=== PATIENT | female | born 1940 | race Caucasian/White ===

== ENCOUNTER → 2016-11-26 | Outpatient (CLI) | payer MEDICARE, OTHER ==
[~2016-11-26] MED LIST: ASP81TEC PO; ATR20T PO; CEFU500T5 PO; CPR500T PO; FLUT1DIS26 IH; LEVO500T69 PO; LISI1TAB PO; METO50TA7 PO; METR500T PO; MNTL10T PO; MTP25TSR PO; OMEG-12 PO; OMEP-10 PO; PHEN200T27 PO; POTA99TA7 PO; TIOT18CA IH; VITA1TAB16 PO
--- NOTE | 2016-11-27 10:13 | ECHOCARDIOGRAPHY REPORT ---
PROCEDURE PHYSICIAN: JASPAL ROACH DATE OF PROCEDURE: 11/26/2016 TWO DIMENSIONAL ECHOCARDIOGRAM REPORT PRIMARY PHYSICIAN: OTHER PHYSICIAN: REFERRING PHYSICIAN: Dr. Hinojosa ORDERING PHYSICIAN: INDICATION FOR THE PROCEDURE: Cardiac murmur. MEASUREMENTS DERIVED VALUES LV DIAMETER (LAX) NORMALS NORMALS Diastolic 4.4 (3.6-5.2) Eject. Fract. 60% (60%+/-6%) Systolic (2.3-3.9) Diastolic Vol. % Shortening (0.22-0.42) Systolic Vol. Aortic Root IVS THICKNESS Diastolic 0.8 (0.6-1.1) LVPW THICKNESS Diastolic 1. (0.6-1.1) LA DIAMETER Systolic 2.9 (2.1-3.7) FINDINGS: 1. Technical quality is good. 2. The left ventricle is normal in size with normal contractility. Systolic function appeared to be normal. Estimated ejection fraction 60%. 3. The left atrium is normal in size. No clot or thrombus were seen within the left atrium. 4. The right atrium and right ventricle are normal in size. No clot or thrombus were seen within the right side. 5. Aortic valve is calcified, still has some leaflet separation. Doppler across the aortic valve calculated the peak gradient of 29 mmHg, mean gradient of 16 mmHg, calculated valve area of 1.4 sq cm, which is mild to moderate aortic valve stenosis. Some deterioration compared to the study of 2012. 6. Tricuspid valve is normal in morphology with mild tricuspid regurgitation noted by color Doppler flow. Doppler across tricuspid valve estimated pulmonary artery pressure of 22+ right atrial pressure. 7. Pulmonic valve is functioning normally. 8. No pericardial effusion. Doppler across left ventricular inflow tract showed equalization of E:A, which is suggestive diastolic dysfunction. CONCLUSION: 1. Normal left ventricular size and systolic function. Estimated ejection fraction 60%. Diastolic dysfunction is suggested by Doppler. 2. Mild to moderate aortic valve stenosis. Some deterioration compared to the study of 2012. 3. Mild mitral and tricuspid regurgitation. 4. Estimated pulmonary artery pressure of 30 mmHg. Job ID: [id number] Dictated Date: 11/26/2016 16:51:08 Care Director Rn Date: 11/27/2016 10:07:59 / [place]
== END ==
LOC: CARD 11:42
PROVIDERS: ATTEND Family Medicine
DX: R01.1 Cardiac murmur, unspecified (principal)
CPT/HCPCS: 93306

== ENCOUNTER 2018-01-12 10:31 | Inpatient (IN) | payer MEDICARE, OTHER ==
[~2018-01-12] VITALS: Ht 157.5 cm; Wt 68.0 kg
[2018-01-12] MEDS ORDERED: ONDANSETRON 4 MG/2 ML (SDV) Z0FRAN IV PRN (10:45)
[2018-01-12] MEDS ORDERED: PATIENT MAY USE OWN MEDS, ALL PO SCH (10:45)
[2018-01-12] MEDS ORDERED: PANTOPRAZOLE 40 MG/10 ML (PROTONIX) VIAL IV NR (10:45)
--- OUTSIDE RECORDS SUMMARY | 2018-01-12 11:09 | XMS REPORT | Continuity of Care Document ---
Author Author [facility] Organization [facility] Address Unknown Phone Unavailable Allergies Active Description Code Type Severity Reaction Onset Reported/Identified Relationship to Patient Clinical Status Yes Penicillins [id number] Drug Allergy Severe ANAPHYLAXIS 06/21/2011 Medications There is no data. Problems Date Dx Coded Attending Type Code Diagnosis Diagnosed By 09/13/2010 Ot 724.4 06/23/2011 Ot 305.1 TOBACCO USE DISORDER 06/23/2011 Ot 401.9 HYPERTENSION NOS 06/23/2011 Ot 496 CHR AIRWAY OBSTRUCT NEC 06/23/2011 Ot 530.81 ESOPHAGEAL REFLUX 06/23/2011 Ot 562.13 DIVERTICULITIS OF COLON WITH HEMORRHAGE 06/23/2011 Ot 599.0 URIN TRACT INFECTION NOS 06/15/2015 Ot 397.0 06/15/2015 Ot 424.0 06/15/2015 Ot 433.10 06/15/2015 Ot 785.2 06/15/2015 Ot V76.12 06/15/2015 Ot 397.0 06/15/2015 Ot 401.9 06/15/2015 Ot 414.01 06/15/2015 Ot 424.0 06/15/2015 ANDREWNDER DOSALMARIGOBERTO S Ot 256.39 06/15/2015 ANDREWNDUZMA DOFAIZARIGOBERTO S Ot 733.90 06/15/2015 ANDREWNDSALMA GUSMAN DOLINE S Ot 781.91 06/15/2015 ANDREWNDUZMA DOFAIZARIGOBERTO S Ot V76.12 07/09/2015 ANDREWNDUZMA DOFAIZARIGOBERTO S Ot 433.10 07/09/2015 ANDREWNDSALMA GUSMAN DOLINE S Ot 433.30 07/26/2015 ANDREWNDFAIZA GUSMAN DOQUELINE S Ot 433.10 07/26/2015 ANDREWNDFAIZA GUSMAN DOQUELINE S Ot 433.30 11/24/2016 Ot 397.0 TRICUSPID VALVE DISEASE 11/24/2016 Ot 401.9 HYPERTENSION NOS 11/24/2016 Ot 414.01 CORONARY ATHEROSCLEROSIS OF [place] CORON 11/24/2016 Ot 424.0 MITRAL VALVE DISORDER 11/24/2016 SALMA ROSAS DOLINE S Ot 256.39 OTHER OVARIAN FAILURE 11/24/2016 RALPH DELCID RIGOBERTO S Ot 733.90 BONE CARTILAGE DIS NOS 11/24/2016 SALMA ROSAS DOLINE S Ot 781.91 LOSS OF HEIGHT 11/24/2016 RALPH DELCID RIGOBERTO S Ot V76.12 OTH SCREEN MAMMO-MALIGN NEOPLASM OF PERRY 11/24/2016 RALPH DELCID RIGOBERTO S Ot 433.10 CAROTID ARTERY OCCLUSION W O CEREBRAL IN 11/24/2016 RALPH DELCID RIGOBERTO S Ot 433.30 MULT BILTRAL ARTERY OCCLUSION WO CEREBRA 11/27/2016 RALPH DELCID RIGOBERTO S Ot R01.1 CARDIAC MURMUR, UNSPECIFIED 11/27/2016 ANDREWCHARITO FAIZA DELCIDRIGOBERTO S Ot R01.1 CARDIAC MURMUR, UNSPECIFIED 12/02/2016 HARJITUZMA FAIZA DELCIDRIGOBERTO S Ot R01.1 CARDIAC MURMUR, UNSPECIFIED 12/18/2016 ANDREWYOANUZMA DELCID RIGOBERTO S Ot R01.1 CARDIAC MURMUR, UNSPECIFIED 01/06/2017 RALPH DO RIGOBERTO S Ot R01.1 CARDIAC MURMUR, UNSPECIFIED Procedures There is no data. Results There is no data. Encounters ACCT No. Visit Date/Time Discharge Status Pt. Type Provider Facility Loc./Unit Complaint [id number] 10/08/2017 15:06:00 10/08/2017 23:59:59 CLS Preadmit RALPH DELCID RIGOBERTO S [facility] RAD LUNG CANCER SCREENING [id number] 11/26/2016 11:42:00 11/26/2016 23:59:59 CLS Outpatient ANDREWNDUZMA DO RIGOBERTO S [facility] CARD CARDIAC MURMUR [id number] 06/15/2015 09:05:00 06/15/2015 23:59:59 CLS Outpatient ANDREWNDUZMA DO RIGOBERTO S [facility] RAD CAROTID ARTERY STENOSIS [id number] 05/11/2014 08:53:00 05/11/2014 23:59:59 CLS Outpatient ANDREWNDUZMA DO RIGOBERTO S [facility] RAD SCREENING, OSTEOPENIA [id number] 03/02/2013 09:35:00 Document Registration [id number] 06/19/2011 11:35:00 Document Registration [id number] 09/13/2010 07:58:00 Document Registration [id number] 07/08/2010 10:43:00 Document Registration [id number] 03/22/2010 09:40:00 Document Registration
[2018-01-12] MEDS ORDERED: ATOR40TA70 PO (11:13)
[2018-01-12] MEDS ORDERED: ESCI5TAB12 PO (11:13)
[2018-01-12] MEDS ORDERED: AMLO10TA2 PO (11:13)
[2018-01-12] MEDS ORDERED: METO-370 PO (11:13)
[2018-01-12] MEDS ORDERED: ALBU18HF2 INH (11:13)
[2018-01-12] MEDS ORDERED: VITA1TAB17 PO (11:14)
[2018-01-12] MEDS ORDERED: OMEG-160 PO (11:14)
[2018-01-12] MEDS ORDERED: POTA99TA21 PO (11:14)
[2018-01-12] MEDS ORDERED: ASPI-983 PO ×2 (11:14→12:56)
[2018-01-12 12:00] VITALS: BP 121/79
[2018-01-12] MEDS: NS IV 1000 ML 1,000 ML IV SCH ×2 (12:07→21:09)
[2018-01-12] MEDS ORDERED: IPRA0.2S51 NEB (12:56)
[2018-01-12] MEDS ORDERED: OMEP20TA7 PO (12:56)
[2018-01-12 13:01] LABS: BASOPHILS % (AUTO) 0 % (0-10); EOSINOPHILS # (AUTO) 0.3 10^3/uL (0.0-0.3); EOSINOPHILS % (AUTO) 3 % (0-10); HEMATOCRIT 36 % (35-52); HEMOGLOBIN 12.3 G/DL (11.5-16.0); LYMPHOCYTES % (AUTO) 12 % (12-44); MEAN CORPUSCULAR HEMOGLOBIN 30 PG (25-34); MEAN CORPUSCULAR HGB CONC 34 G/DL (32-36); MEAN CORPUSCULAR VOLUME 88 FL (80-99); MEAN PLATELET VOLUME 10.7 FL (7.4-10.4); MONOCYTES # (AUTO) 0.8 X 10^3 (0.0-1.0); MONOCYTES % (AUTO) 9 % (0-12); NEUTROPHILS # (AUTO) 6.2 X 10^3 (1.8-7.8); NEUTROPHILS % (AUTO) 76 % (42-75); PLATELET COUNT 340 10^3/uL (130-400); RED BLOOD COUNT 4.15 10^6/uL (4.35-5.85); RED CELL DISTRIBUTION WIDTH 13.9 % (10.0-14.5); WHITE BLOOD COUNT 8.2 10^3/uL (4.3-11.0)
[2018-01-12 13:25] LABS: ALANINE AMINOTRANSFERASE 7 U/L (0-55); ALBUMIN 3.8 GM/DL (3.2-4.5); ALKALINE PHOSPHATASE 81 U/L (40-136); AMYLASE 25 U/L (25-125); BILIRUBIN,TOTAL 0.6 MG/DL (0.1-1.0); BUN/CREATININE RATIO 18; CARBON DIOXIDE 25 MMOL/L (21-32); CHLORIDE 105 MMOL/L (98-107); CREATININE SERUM 0.74 MG/DL (0.60-1.30); GFR ESTIMATED > 60; GLUCOSE 117 MG/DL (70-105); LIPASE 14 U/L (8-78); POTASSIUM 3.9 MMOL/L (3.6-5.0); SODIUM 140 MMOL/L (135-145); TOTAL PROTEIN 6.5 GM/DL (6.4-8.2)
--- NOTE | 2018-01-12 14:31 | Diagnostic Imaging Report ---
PROCEDURE: CT head without contrast. TECHNIQUE: Multiple contiguous axial images were obtained through the brain without the use of intravenous contrast. INDICATION: Confusion. Memory loss. COMPARISON: CT head without contrast 10/26/2011. FINDINGS: Rjlt-go-xrvycsms generalized cerebral and cerebellar parenchymal volume loss, similar to the prior exam. Mild interval progression of low attenuation changes in the deep white matter, presumed leukoaraiosis. No CT evidence of a territorial infarction. Intracranial vascular calcifications. No intracranial hemorrhage, mass effect, hydrocephalus or extra-axial fluid collection. Osseous structures are intact. The visualized paranasal sinuses and mastoids are clear. IMPRESSION: 1. No acute intracranial CT findings. 2. Tfne-iu-zrzhustr generalized parenchymal volume loss is stable. 3. 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 Dictated by: Dictated on workstation # [id number]
--- NOTE | 2018-01-12 15:21 | Diagnostic Imaging Report ---
INDICATION: Confusion and memory loss. TIME OF EXAM: 02:42 p.m. Correlation is made with prior study from 12/17/2011. FINDINGS: The heart size is normal. Bilateral breast implants overlie the lung bases. The lungs appear to be clear of acute infiltrates. There is no effusion. No pneumothorax is seen. IMPRESSION: No acute cardiopulmonary process is detected. Dictated by: Dictated on workstation # [id number]
[2018-01-12 15:59] LABS: BILIRUBIN,URINE NEGATIVE (NEGATIVE); CLARITY,URINE CLEAR; COLOR,URINE YELLOW; GLUCOSE, URINE (UA) NEGATIVE (NEGATIVE); KETONES,URINE NEGATIVE (NEGATIVE); LEUKOCYTE ESTERASE ,URINE 3+ (NEGATIVE); NITRITE,URINE NEGATIVE (NEGATIVE); PH,URINE 6 (5-9); PROTEIN,URINE NEGATIVE (NEGATIVE); UROBILINOGEN,URINE 4 MG/DL (NORMAL)
[2018-01-12 16:00] VITALS: BP 152/70
[2018-01-12 16:09] LABS: BACTERIA,URINE MODERATE /HPF; SQUAMOUS EPITHELIAL CELL,UR >50 /HPF; WBC,URINE 50-100 /HPF
--- NOTE | 2018-01-12 17:51 | History & Physicial ---
History of Present Illness History of Present Illness Reason for visit/HPI This is a 77 year old female with a known history of COPD with ongoing tobacco abuse as well as recent worsening memory. She had the onset of nausea and vomiting at the end of last week and had ongoing nausea and vomiting through the weekend with at least one episode of coffee ground emesis and with very little oral intake. She also started experiencing substernal chest pain. She was brought to my office by her sister with weakness and was noted to have had an 8 pound weight loss. It was decided to directly admit her for intractable nausea and vomiting with upper GI hemorrhage, chest pain, weakness and confusion. Date of Admission Jan 12, 2018 at 11:05 am Date Seen by Provider: Jan 12, 2018 Time Seen by Provider: 11:45 I consulted on this patient on 01/12/18 17:46 Attending Physician Neelam Hinojosa DO Admitting Physician Neelam Hinojosa DO Consult Allergies and Home Medications Allergies Coded Allergies: Penicillins (Unverified Allergy, Severe, ANAPHYLAXIS, 06/21/11) Home Medications Albuterol Sulfate 18 Gm Hfa.aer.ad, 2 PUFF INH Q4H PRN for SHORTNESS OF BREATH, (Reported) Amlodipine Besylate 10 Mg Tablet, 10 MG PO DAILY, (Reported) Aspirin 81 Mg Tablet.dr, 81 MG PO DAILY, (Reported) Atorvastatin Calcium 40 Mg Tablet, 40 MG PO DAILY, (Reported) Escitalopram Oxalate 5 Mg Tablet, 5 MG PO DAILY, (Reported) Ipratropium [place] 0.2 Mg/1 Ml Solution, 0.5 MG NEB QID, (Reported) Metoprolol Succinate 50 Mg Tab.er.24h, 50 MG PO DAILY, (Reported) [place]-3/Dha/Epa/Fish Oil 1 Each Capsule, 1,000 MG PO BID, (Reported) Omeprazole 20 Mg Tablet.dr, 20 MG PO DAILY, (Reported) Potassium Gluconate 99 Mg Tablet, 99 MG PO DAILY, (Reported) Vitamin B Complex 1 Each Tablet, 1 TAB PO DAILY, (Reported) Patient Home Medication List Home Medication List Reviewed: Yes Past Liwyszj-Hpdpqd-Ybctps Hx Patient Social History Alcohol Use: Rarely Uses Number of Drinks Today: 0 Alcohol Beverage of Choice: Wine Recreational Drug Use: No Smoking Status: Current Everyday Smoker Type Used: Cigarettes Physical Abuse Screen: No Sexual Abuse: No Recent Foreign Travel: No Contact w/other who traveled: No Recent Hopitalizations: Yes (ASTHMA ATTACK-2005) Recent Infectious Disease Expo: No Immunizations Up To Date Date of Pneumonia Vaccine: Sep 09, 2010 Date of Influenza Vaccine: Aug 09, 2017 Seasonal Allergies Seasonal Allergies: No Surgeries Yes Respiratory Yes (COPD) Currently Using CPAP: No Currently Using BIPAP: No Cardiovascular Yes Neurological No Reproductive System Hx Reproductive Disorders: Yes Genitourinary Yes Kidney Stones Gastrointestinal No Musculoskeletal No Endocrine History of Endocrine Disorders: No HEENT History of HEENT Disorders: Yes Hearing Impairment: Hard of Hearing Cancer No Psychosocial History of Psychiatric Problem: No Integumentary History of Skin or Integumenta: No Blood Transfusions History of Blood Disorders: No Constitutional: weakness, weight loss EENTM: No see HPI, No no symptoms reported, No ear discharge, No hearing loss, No ear pain, No blurred vision, No double vision, No eye pain, No tearing, No vision loss, No dental problems, No hoarseness, No mouth pain, No mouth swelling , No epistaxis, No nose congestion, No nose pain, No throat pain, No throat swelling, No other Respiratory: cough, dyspnea on exertion, short of breath, wheezing Cardiovascular: chest pain Gastrointestinal: abdominal pain, hematemesis, loss of appetite, nausea, vomiting Genitourinary: decreased output Musculoskeletal: back pain, muscle weakness Skin: No no symptoms reported, No see HPI, No change in color, No change in hair/nails, No dryness, No hx of skin cancer, No lesions, No lumps, No pruritus , No rash, No other Psychiatric/Neurological: Weakness, Other (memory loss) Physical Exam Vital Signs Vital Signs - First Documented 01/12/18 12:00 Temp 97.8 Pulse 80 Resp 18 B/P (MAP) 121/79 (93) Pulse Ox 97 O2 Delivery Room Air Capillary Refill : General Appearance: Mild Distress HEENT: Other (mucous membranes dry) Neck: Supple Respiratory: Decreased Breath Sounds, Rales, Rhonci Cardiovascular: Regular Rate, Rhythm, Systolic Murmur, Gallop/S4 Gastrointestinal: Normal Bowel Sounds, Soft, Tenderness Rectal: Deferred Back: No CVA Tenderness Extremity: Non Tender, No Calf Tenderness, No Pedal Edema Neurologic/Psychiatric: Alert, Oriented x3, Motor Weakness (generalized) Skin: Warm/Dry Comments Laboratory Tests 01/12/18 12:50: White Blood Count 8.2, Red Blood Count 4.15L, Hemoglobin 12.3, Hematocrit 36, Mean Corpuscular Volume 88, Mean Corpuscular Hemoglobin 30, Mean Corpuscular Hemoglobin Concent 34, Red Cell Distribution Width 13.9, Platelet Count 340, Mean Platelet Volume 10.7H, Neutrophils (%) (Auto) 76H, Lymphocytes (%) (Auto) 12, Monocytes (%) (Auto) 9, Eosinophils (%) (Auto) 3, Basophils (%) (Auto) 0, Neutrophils # (Auto) 6.2, Lymphocytes # (Auto) 1.0, Monocytes # (Auto) 0.8, Eosinophils # (Auto) 0.3, Basophils # (Auto) 0.0, Sodium Level 140, Potassium Level 3.9, Chloride Level 105, Carbon Dioxide Level 25, Anion Gap 10, Blood Urea Nitrogen 13, Creatinine 0.74, Estimat Glomerular Filtration Rate > 60, BUN/ Creatinine Ratio 18, Glucose Level 117H, Calcium Level 10.0, Total Bilirubin 0.6 , Aspartate Amino Transf (AST/SGOT) 13, Alanine Aminotransferase (ALT/SGPT) 7, Alkaline Phosphatase 81, Troponin I < 0.30, Total Protein 6.5, Albumin 3.8, Amylase Level 25, Lipase 14, Thyroid Stimulating Hormone (TSH) 1.19 01/12/18 15:50: Urine Color YELLOW, Urine Clarity CLEAR, Urine pH 6, Urine Specific [place] 1.020, Urine Protein NEGATIVE, Urine Glucose (UA) NEGATIVE, Urine Ketones NEGATIVE, Urine Nitrite NEGATIVE, Urine Bilirubin NEGATIVE, Urine Urobilinogen 4H, Urine Leukocyte Esterase 3+H, Urine RBC (Auto) NEGATIVE, Urine RBC NONE, Urine WBC 50-100H, Urine Squamous Epithelial Cells >50H, Urine Crystals NONE, Urine Bacteria MODERATEH, Urine Casts NONE, Urine Mucus NEGATIVE, Urine Culture Indicated YES Assessment/Plan Assessment and Plan 1. Intractable Nausea and Vomiting with Hematemesis indicating Upper GI Hemorrhage and Abnormal Weight Loss--Admit for IVF, IV protonix, Monitor H/H, Possible EGD, check pancreatic Enzymes 2. Memory Loss/Confusion--Check CT scan of head 3. UTI--start Rocephin 4. COPD with ongoing Tobacco Abuse--Start SVNs with duoneb, monitor oxygen saturation 5. Weakness--multifactorial, check lab and see if improves with hydration, treatment of UTI, pulmonary toilet 6. Chest Pain--check EKG, CXR, cardiac enzymes Problems: Admission Diagnosis Admission Status: Inpatient Order (span 2 midnights) Reason for Inpatient Admission: Patient having intractable N/V with hematemesis as well as chest pain so will need to monitor H/H and cover with IV protonix, rule out cardiac and possibly have endoscopies Clinical Quality Measures DVT/VTE Risk/Contraindication: Risk Factor Score Per Nursin RFS Level Per Nursing on Admit: 3=High NEELAM HINOJOSA DO Jan 12, 2018 5:51 pm
[2018-01-12] MEDS ORDERED: ACETAMINOPHEN 325 MG TABLET/CAPLET (TYLENOL) PO PRN (18:15)
[2018-01-12 20:00] VITALS: BP 151/72
[2018-01-12] MEDS: cefTRIAXone INJECTION 1,000 MG in NS (IVPB) 100 ML IV SCH (20:11)
[2018-01-12] MEDS: PANTOPRAZOLE 40 MG/10 ML (PROTONIX) VIAL IV SCH (21:09)
[2018-01-13] VITALS: BP 124/59
[2018-01-13] MEDS: RT-ALBUTEROL/IPRATROPIUM 3 ML (DUONEB) VIAL INH SCH ×8 (03:40→22:10)
[2018-01-13 04:00] VITALS: BP 150/72
[2018-01-13 05:59] LABS: BASOPHILS % (AUTO) 0 % (0-10); EOSINOPHILS # (AUTO) 0.3 10^3/uL (0.0-0.3); EOSINOPHILS % (AUTO) 5 % (0-10); HEMATOCRIT 34 % (35-52); HEMOGLOBIN 11.3 G/DL (11.5-16.0); LYMPHOCYTES # (AUTO) 1.3 X 10^3 (1.0-4.0); LYMPHOCYTES % (AUTO) 21 % (12-44); MEAN CORPUSCULAR HEMOGLOBIN 29 PG (25-34); MEAN CORPUSCULAR HGB CONC 33 G/DL (32-36); MEAN CORPUSCULAR VOLUME 88 FL (80-99); MEAN PLATELET VOLUME 10.8 FL (7.4-10.4); MONOCYTES # (AUTO) 0.9 X 10^3 (0.0-1.0); MONOCYTES % (AUTO) 15 % (0-12); NEUTROPHILS # (AUTO) 3.6 X 10^3 (1.8-7.8); NEUTROPHILS % (AUTO) 59 % (42-75); PLATELET COUNT 309 10^3/uL (130-400); RED BLOOD COUNT 3.86 10^6/uL (4.35-5.85); RED CELL DISTRIBUTION WIDTH 13.7 % (10.0-14.5); WHITE BLOOD COUNT 6.1 10^3/uL (4.3-11.0)
[2018-01-13 06:40] LABS: BUN/CREATININE RATIO 13; CARBON DIOXIDE 24 MMOL/L (21-32); CHLORIDE 108 MMOL/L (98-107); CREATININE SERUM 0.72 MG/DL (0.60-1.30); GFR ESTIMATED > 60; GLUCOSE 102 MG/DL (70-105); POTASSIUM 3.9 MMOL/L (3.6-5.0); SODIUM 140 MMOL/L (135-145)
[2018-01-13 08:00] VITALS: BP 130/70
--- NOTE | 2018-01-13 09:23 | Diagnostic Imaging Report ---
PROCEDURE: US carotid duplex, bilateral. TECHNIQUE: Multiple real-time grayscale images were obtained over the carotid arteries in various projections, bilaterally. Additional duplex Doppler and color Doppler images were also obtained. INDICATION: Confusion and carotid artery stenosis. Mild plaque is identified in both carotid bifurcations as well as the proximal internal and external carotid arteries. Velocities are normal bilaterally. No velocity elevation or stenosis is seen. Both vertebral arteries show antegrade flow. Parameters based on the consensus panel [place]-Scale and Doppler ultrasound criteria published September 2003, Radiology, Volume 229. DOPPLER (peak systolic velocity M/S Right Left CCA 1.15 .83 ICA Proximal .75 .89 ICA Mid .76 .81 ICA Distal .96 .74 RATIO .65 1.08 ECA 1.27 1.24 VERT .34 .53 IMPRESSION: Mild bilateral carotid plaque. There is no evidence of a hemodynamically significant stenosis. Dictated by: Dictated on workstation # [id number]
[2018-01-13] MEDS: PANTOPRAZOLE 40 MG/10 ML (PROTONIX) VIAL IV SCH ×2 (10:05→20:24)
[2018-01-13] MEDS: cefTRIAXone INJECTION 1,000 MG in NS (IVPB) 100 ML IV SCH (10:06)
[2018-01-13] MEDS: amLODIPine 10 MG (NORVASC) TAB PO SCH (10:06)
[2018-01-13] MEDS: meTOproloL SUCCINATE 50 MG (TOPROL XL) TAB PO SCH (10:06)
[2018-01-13] MEDS: ATORVASTATIN 40 MG (LIPITOR) TABLET PO SCH (10:07)
[2018-01-13] MEDS: ASPIRIN E.C. 81 MG (ECOTRIN) TAB PO SCH (10:07)
[2018-01-13] MEDS: NS IV 1000 ML 1,000 ML IV SCH (11:15)
[2018-01-13 12:00] VITALS: BP 133/89
--- NOTE | 2018-01-13 15:59 | Consultation ---
History of Present Illness History of Present Illness Patient Consulted On(lu/time) 01/13/18 15:56 Date Seen by Provider: Jan 13, 2018 Time Seen by Provider: 15:56 Reason for Visit: Substernal pain and coughing causes History of Present Illness progressive weight loss and substernal pain with initial concerns about a cardiac event. Subsequently ruled out. I've been asked to see her regarding upper abdominal pain and coffee-ground emesis. Allergies and Home Medications Allergies Coded Allergies: Penicillins (Unverified Allergy, Severe, ANAPHYLAXIS, 01/12/18) Per Dr. Hinojosa patient has had Cephalosporins in the past without issue Home Medications Albuterol Sulfate 18 Gm Hfa.aer.ad, 2 PUFF INH Q4H PRN for SHORTNESS OF BREATH, (Reported) Amlodipine Besylate 10 Mg Tablet, 10 MG PO DAILY, (Reported) Aspirin 81 Mg Tablet.dr, 81 MG PO DAILY, (Reported) Atorvastatin Calcium 40 Mg Tablet, 40 MG PO DAILY, (Reported) Escitalopram Oxalate 5 Mg Tablet, 5 MG PO DAILY, (Reported) Ipratropium [place] 0.2 Mg/1 Ml Solution, 0.5 MG NEB QID, (Reported) Metoprolol Succinate 50 Mg Tab.er.24h, 50 MG PO DAILY, (Reported) [place]-3/Dha/Epa/Fish Oil 1 Each Capsule, 1,000 MG PO BID, (Reported) Omeprazole 20 Mg Tablet.dr, 20 MG PO DAILY, (Reported) Potassium Gluconate 99 Mg Tablet, 99 MG PO DAILY, (Reported) Vitamin B Complex 1 Each Tablet, 1 TAB PO DAILY, (Reported) Patient Home Medication List Home Medication List Reviewed: Yes Past Dqsmxca-Mhqlep-Gwnsov Hx Patient Social History Alcohol Use: Rarely Uses Number of Drinks Today: 0 Alcohol Beverage of Choice: Wine Recreational Drug Use: No Smoking Status: Current Everyday Smoker Type Used: Cigarettes Recent Foreign Travel: No Contact w/Someone Who Travel: No Recent Infectious Disease Expo: No Recent Hopitalizations: Yes (ASTHMA ATTACK-2004) Immunizations Up To Date Date of Pneumonia Vaccine: Sep 09, 2010 Date of Influenza Vaccine: Aug 09, 2017 Seasonal Allergies Seasonal Allergies: No Surgeries History of Surgeries: Yes Respiratory History of Respiratory Disorde: Yes (COPD) Respiratory Disorders: COPD Currently Using CPAP: No Currently Using BIPAP: No Cardiovascular History of Cardiac Disorders: Yes Neurological History of Neurological Disord: No Reproductive System Hx Reproductive Disorders: Yes Genitourinary History of Genitourinary Disor: Yes Genitourinary Disorders: Kidney Stones Gastrointestinal History of Gastrointestinal Di: No Musculoskeletal History of Musculoskeletal Dis: No Endocrine History of Endocrine Disorders: No HEENT History of HEENT Disorders: Yes Hearing Impairment: Hard of Hearing Cancer History of Cancer: No Psychosocial History of Psychiatric Problem: No Integumentary History of Skin or Integumenta: No Blood Transfusions History of Blood Disorders: No Review of Systems-General Constitutional: malaise EENTM: no symptoms reported Respiratory: cough Cardiovascular: see HPI Gastrointestinal: see HPI Genitourinary: no symptoms reported Musculoskeletal: no symptoms reported Skin: no symptoms reported Physical Exam-General Problems Physical Exam Vital Signs Vital Signs - First Documented 01/12/18 01/12/18 01/13/18 11:30 12:00 09:00 Temp 97.8 Pulse 80 Resp 18 B/P (MAP) 121/79 (93) Pulse Ox 94 O2 Delivery Room Air O2 Flow Rate 2.00 Capillary Refill : General Appearance: no apparent distress Respiratory: lungs clear Cardiovascular: regular rate, rhythm Gastrointestinal: non tender, soft Neurologic/Psychiatric: alert, oriented x 3 Skin: warm/dry Assessment/Plan Assessment/Plan Admission Diagnosis/Plan lady with substernal and epigastric pain. Negative cardiac evaluation. Coffee- ground emesis. Reasonable to rule out gallstones using a gallbladder ultrasound first, followed by an upper endoscopy. These will be arranged for tomorrow. Clinical Quality Measures DVT/VTE Risk/Contraindication: Risk Factor Score Per Nursin RFS Level Per Nursing on Admit: 3=High AYE FIGUEROA MD Jan 13, 2018 15:59
[2018-01-13 16:00] VITALS: BP 116/63
--- NOTE | 2018-01-13 17:18 | Progress Note (SOAP) ---
Subjective Date Seen by Provider: Jan 13, 2018 Time Seen by Provider: 12:50 Subjective/Events-last exam Fwup upper GI hemorrhage, GERD, COPD, memory loss, UTI. No further chest pain or nausea or vomiting. Still with memory issues per family. Objective Exam Vital Signs Date Time Temp Pulse Resp B/P (MAP) Pulse Ox O2 Delivery O2 Flow Rate FiO2 01/13/18 16:00 98.3 67 20 116/63 (80) 94 Room Air 01/13/18 14:07 94 Room Air 01/13/18 12:00 98.3 67 22 133/89 (104) 95 Room Air 01/13/18 11:15 95 Room Air 01/13/18 09:00 95 Nasal Cannula 2.00 01/13/18 08:00 97.3 69 20 130/70 (90) 95 Room Air 01/13/18 07:00 70 01/13/18 04:00 98.8 76 18 150/72 (98) 94 Room Air 01/13/18 01:00 65 01/13/18 00:00 97.6 67 16 124/59 (80) 95 Room Air 01/12/18 21:00 Room Air 01/12/18 20:00 98.1 75 20 151/72 (98) 94 Room Air 01/12/18 19:00 70 I & O 01/13/18 07:00 Intake Total 1540 ml Output Total 850 ml Balance 690 ml Capillary Refill : General Appearance: No Apparent Distress Neck: Supple Respiratory: Decreased Breath Sounds, Rhonci Cardiovascular: Regular Rate, Rhythm Gastrointestinal: normal bowel sounds, non tender, soft Extremity: Non Tender, No Calf Tenderness, No Pedal Edema Neurologic/Psychiatric: Alert Skin: Warm/Dry Results Lab Laboratory Tests 01/12/18 18:47: Troponin I < 0.30 01/13/18 05:40: White Blood Count 6.1, Red Blood Count 3.86L, Hemoglobin 11.3L, Hematocrit 34L, Mean Corpuscular Volume 88, Mean Corpuscular Hemoglobin 29, Mean Corpuscular Hemoglobin Concent 33, Red Cell Distribution Width 13.7, Platelet Count 309, Mean Platelet Volume 10.8H, Neutrophils (%) (Auto) 59, Lymphocytes (%) (Auto) 21 , Monocytes (%) (Auto) 15H, Eosinophils (%) (Auto) 5, Basophils (%) (Auto) 0, Neutrophils # (Auto) 3.6, Lymphocytes # (Auto) 1.3, Monocytes # (Auto) 0.9, Eosinophils # (Auto) 0.3, Basophils # (Auto) 0.0 01/13/18 05:46: Sodium Level 140, Potassium Level 3.9, Chloride Level 108H, Carbon Dioxide Level 24, Anion Gap 8, Blood Urea Nitrogen 9, Creatinine 0.72, Estimat Glomerular Filtration Rate > 60, BUN/Creatinine Ratio 13, Glucose Level 102, Calcium Level 9.0 01/13/18 10:30: Stool Occult Blood Immunoassay NEGATIVE Microbiology 01/12/18 Urine Culture - Preliminary, Resulted Assessment/Plan Assessment/Plan Assess & Plan/Chief Complaint 1. Acute Upper GI Hemorrhage/GERD--continue IV protonix, proceed with EGD 2. Intractable N/V--resolved 3. Chest Pain--resolved--likely GI etiology 4. UTI--on rocephin 5. Memory Loss--discussed trial of aricept 6. COPD--smoking cessation discussed Clinical Quality Measures Admission Status Admission Dx 1. Intractable Nausea and Vomiting with Hematemesis indicating Upper GI Hemorrhage and Abnormal Weight Loss--Admit for IVF, IV protonix, Monitor H/H, Possible EGD, check pancreatic Enzymes 2. Memory Loss/Confusion--Check CT scan of head 3. UTI--start Rocephin 4. COPD with ongoing Tobacco Abuse--Start SVNs with duoneb, monitor oxygen saturation 5. Weakness--multifactorial, check lab and see if improves with hydration, treatment of UTI, pulmonary toilet 6. Chest Pain--check EKG, CXR, cardiac enzymes DVT/VTE Risk/Contraindication: Risk Factor Score Per Nursin RFS Level Per Nursing on Admit: 3=High RIGOBERTO ROSAS DO Jan 13, 2018 17:18
[2018-01-13] MEDS ORDERED: ALPRAZolam 0.25 MG (XANAX) TAB PO PRN (17:45)
[2018-01-13 20:00] VITALS: BP 129/80
[2018-01-14] VITALS: BP 121/78
[2018-01-14] MEDS: RT-ALBUTEROL/IPRATROPIUM 3 ML (DUONEB) VIAL INH SCH ×5 (02:05→15:28)
[2018-01-14] MEDS: NS IV 1000 ML 1,000 ML IV SCH (02:26)
[2018-01-14 04:26] VITALS: BP 124/81
[2018-01-14 06:29] LABS: BASOPHILS % (AUTO) 0 % (0-10); EOSINOPHILS # (AUTO) 0.2 10^3/uL (0.0-0.3); EOSINOPHILS % (AUTO) 4 % (0-10); HEMATOCRIT 32 % (35-52); HEMOGLOBIN 10.5 G/DL (11.5-16.0); LYMPHOCYTES # (AUTO) 1.1 X 10^3 (1.0-4.0); LYMPHOCYTES % (AUTO) 22 % (12-44); MEAN CORPUSCULAR HEMOGLOBIN 29 PG (25-34); MEAN CORPUSCULAR HGB CONC 33 G/DL (32-36); MEAN CORPUSCULAR VOLUME 89 FL (80-99); MEAN PLATELET VOLUME 10.8 FL (7.4-10.4); MONOCYTES # (AUTO) 0.8 X 10^3 (0.0-1.0); MONOCYTES % (AUTO) 15 % (0-12); NEUTROPHILS # (AUTO) 3.1 X 10^3 (1.8-7.8); NEUTROPHILS % (AUTO) 59 % (42-75); PLATELET COUNT 254 10^3/uL (130-400); RED BLOOD COUNT 3.57 10^6/uL (4.35-5.85); RED CELL DISTRIBUTION WIDTH 13.7 % (10.0-14.5); WHITE BLOOD COUNT 5.2 10^3/uL (4.3-11.0)
[2018-01-14 08:00] VITALS: BP 143/61
[2018-01-14] MEDS: cefTRIAXone INJECTION 1,000 MG in NS (IVPB) 100 ML IV SCH (08:27)
[2018-01-14] MEDS: PANTOPRAZOLE 40 MG/10 ML (PROTONIX) VIAL IV SCH (08:27)
--- NOTE | 2018-01-14 09:33 | Diagnostic Imaging Report ---
PROCEDURE: US Gallbladder. TECHNIQUE: Multiple real-time grayscale images were obtained over the right upper quadrant in various projections. INDICATION: Right upper quadrant pain. The liver is normal in size at 16 cm. There is homogeneous echotexture. No discrete liver mass is identified. The gallbladder is without stones or sludge. The wall is non-thickened. No pericholecystic fluid is seen. No intrahepatic biliary duct dilatation is seen. The extra hepatic bile duct is not well visualized on this study, obscured by bowel gas. The pancreatic head and proximal body are unremarkable. The tail was obscured by bowel gas. Right kidney measures 10.1 cm in length. There is an approximately 10 mm hypoechoic mass in the lower pole, most likely a cyst. There are no calculi or hydronephrosis. IMPRESSION: 1. No evidence of cholelithiasis or acute cholecystitis. 2. Probable small right renal cyst. 3. No other significant abnormality is detected. Dictated by: Dictated on workstation # [id number]
--- NOTE | 2018-01-14 09:43 | Conscious Sedation/ASA ---
Conscious Sedation Pre-Proced Time Reviewed: 09:42 ASA Class: 3 Airway Mallampati Classification: (lower brule appropriate class) I. II. III, IV Lungs Heart ASA score ASA 1: a normal healthy patient ASA 2: a patient with a mild systemic disease (mid diabetes, controlled hypertension, obesity ASA 3: a patient with a severe systemic disease that limits activity (angina , COPD, prior Myocardial infarction) ASA 4: a patient with an incapacitating disease that is a constant threat to life (CHF, renal failure) ASA 5: a moribund patient not expected to survive 24 hrs. (ruptured aneurysm) ASA 6: a declared brain patient whose organs are being harvested. For emergent operations, add the letter E after the classification Grade 2 Sedation Plan: Discussed options with patient/fam Note The patient is an appropriate candidate to undergo the planned procedure, sedation, and anesthesia. The patient immediately re-assessed prior to indication. AYE FIGUEROA MD Jan 14, 2018 09:43
[2018-01-14] MEDS: ASPIRIN E.C. 81 MG (ECOTRIN) TAB PO SCH (10:01)
[2018-01-14] MEDS: meTOproloL SUCCINATE 50 MG (TOPROL XL) TAB PO SCH (12:14)
[2018-01-14] MEDS: ATORVASTATIN 40 MG (LIPITOR) TABLET PO SCH (12:14)
[2018-01-14] MEDS: amLODIPine 10 MG (NORVASC) TAB PO SCH (12:14)
--- NOTE | 2018-01-14 12:32 | Progress Note (SOAP) ---
Subjective Date Seen by Provider: Jan 14, 2018 Time Seen by Provider: 12:31 Subjective/Events-last exam Fwup upper GI hemorrhage, GERD, COPD, memory loss, UTI. No further chest pain or nausea or vomiting. NPO for EGD. Objective Exam Vital Signs Date Time Temp Pulse Resp B/P (MAP) Pulse Ox O2 Delivery O2 Flow Rate FiO2 01/14/18 11:18 93 Room Air 01/14/18 09:00 Room Air 01/14/18 08:00 97.8 80 18 143/61 (88) 94 Room Air 01/14/18 07:29 92 Room Air 01/14/18 07:00 63 01/14/18 04:26 98.4 69 17 124/81 (95) 98 Room Air 01/14/18 02:09 98 Nasal Cannula 2.00 01/14/18 01:00 68 01/14/18 00:00 98.3 78 16 121/78 (92) 97 Room Air 01/13/18 22:13 95 Room Air 01/13/18 21:00 Room Air 01/13/18 20:00 98.1 71 20 129/80 (96) 96 Room Air 01/13/18 19:00 83 01/13/18 18:28 96 Room Air 01/13/18 16:00 98.3 67 20 116/63 (80) 94 Room Air 01/13/18 14:07 94 Room Air 01/13/18 13:00 73 I & O 01/14/18 07:00 Intake Total 2980 ml Output Total 2550 ml Balance 430 ml Capillary Refill : General Appearance: No Apparent Distress Neck: Supple Respiratory: Decreased Breath Sounds, Rhonci Cardiovascular: Regular Rate, Rhythm Gastrointestinal: normal bowel sounds, non tender, soft Extremity: Non Tender, No Calf Tenderness, No Pedal Edema Neurologic/Psychiatric: Alert, Oriented x3 Results Lab Laboratory Tests 01/14/18 06:05: White Blood Count 5.2, Red Blood Count 3.57L, Hemoglobin 10.5L, Hematocrit 32L, Mean Corpuscular Volume 89, Mean Corpuscular Hemoglobin 29, Mean Corpuscular Hemoglobin Concent 33, Red Cell Distribution Width 13.7, Platelet Count 254, Mean Platelet Volume 10.8H, Neutrophils (%) (Auto) 59, Lymphocytes (%) (Auto) 22 , Monocytes (%) (Auto) 15H, Eosinophils (%) (Auto) 4, Basophils (%) (Auto) 0, Neutrophils # (Auto) 3.1, Lymphocytes # (Auto) 1.1, Monocytes # (Auto) 0.8, Eosinophils # (Auto) 0.2, Basophils # (Auto) 0.0 Microbiology 01/12/18 Urine Culture - Preliminary, Resulted Assessment/Plan Assessment/Plan Assess & Plan/Chief Complaint 1. Acute Upper GI Hemorrhage/GERD--continue IV protonix, proceed with EGD today to rule out ulcer 2. Intractable N/V--resolved 3. Chest Pain--resolved--likely GI etiology 4. UTI--on rocephin 5. Memory Loss--discussed trial of aricept 6. COPD--smoking cessation discussed 7. Acute Anemia--likley dilutional and acute drop from recent hematemesis Clinical Quality Measures Admission Status Admission Dx 1. Intractable Nausea and Vomiting with Hematemesis indicating Upper GI Hemorrhage and Abnormal Weight Loss--Admit for IVF, IV protonix, Monitor H/H, Possible EGD, check pancreatic Enzymes 2. Memory Loss/Confusion--Check CT scan of head 3. UTI--start Rocephin 4. COPD with ongoing Tobacco Abuse--Start SVNs with duoneb, monitor oxygen saturation 5. Weakness--multifactorial, check lab and see if improves with hydration, treatment of UTI, pulmonary toilet 6. Chest Pain--check EKG, CXR, cardiac enzymes DVT/VTE Risk/Contraindication: Risk Factor Score Per Nursin RFS Level Per Nursing on Admit: 3=High RIGOBERTO ROSAS DO Jan 14, 2018 12:32 pm
[2018-01-14] MEDS ORDERED: MIDAZOLAM 2 MG/2 ML (VERSED) VIAL ONE ×2 (15:12→15:13)
[2018-01-14] MEDS ORDERED: fentaNYL INJECTION 100 MCG/2 ML AMP ONE (15:12)
[2018-01-14] MEDS ORDERED: HURRICAINE EXT TUBE (BENZOCAINE) ONE (15:13)
[2018-01-14] MEDS ORDERED: NS IV 500 ML 500 ML ONE (15:15)
[2018-01-14] MEDS ORDERED: NS IV 500 ML 500 ML IV PRN (15:18)
[2018-01-14] MEDS: fentaNYL INJECTION 100 MCG/2 ML AMP IVP PRN ×2 (15:20→15:25)
[2018-01-14] MEDS: MIDAZOLAM 2 MG/2 ML (VERSED) VIAL IVP PRN ×2 (15:21→15:23)
--- NOTE | 2018-01-14 15:35 | Endo Procedure Record ---
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 Necrotic slough in between the columns of varices. 2. Multiple antral erosions Procedure Performed EGD with antral biopsy Description of Procedure Anesthesia Type: Conscious Sedation Specimen(s) collected/removed antral mucosa for H. pylori Description of the Procedure Indication for the procedure: This lady has been admitted with substernal pain and a history of coffee-ground emesis. Once cardiac events with ruled out, an upper endoscopy was felt to be reasonable. Informed consent was obtained after reviewing the procedure in detail. Description of the procedure: She was placed in left lateral decubitus position and her vital signs were monitored. Conscious sedation was achieved using Versed and fentanyl. The flexible gastroscope was introduced down the esophagus , past the stomach, into the proximal duodenum. Findings: Esophagus: 2 columns of varices extending from 25 cm to the gastroesophageal junction with necrotic slough between them. Photo-documentation was obtained. Stomach: Multiple disc total gastric erosions with erythema around them. Biopsy for H. pylori was obtained. Duodenum: Changes of severe duodenitis She tolerated the procedure well and was taken back to the nursing area in a stable condition. Impression: Epigastric pain and coffee-ground emesis. Esophageal varices with slough between columns of varix. Distal gastric erosions. Duodenitis. H. pylori status pending. Copies To: RIGOBERTO ROSAS XAVIER M MD Jan 14, 2018 3:35 pm
[2018-01-14] MEDS ORDERED: HURRICAINE EXT TUBE (BENZOCAINE) XX PRN (16:00)
[2018-01-14 16:39] VITALS: BP 146/68
[2018-01-14] MEDS ORDERED: SUCR1TAB36 PO (17:23)
[2018-01-14] MEDS ORDERED: PANT40TA2 PO (17:23)
--- NOTE | 2018-01-14 17:26 | Discharge Inst-Simple/Standard ---
Discharge Inst-Standard Discharge Medications New, Converted or Re-Newed RX: Transmitted to Pharmacy Patient Instructions/Follow Up Plan of Care/Instructions/FU: Fwup with me in [address] iJm for further workup Activity as Tolerated: Yes Discharge Diet: Low Fat/Low Cholesterol RIGOBERTO ROSAS DO Jan 14, 2018 5:26 pm
--- NOTE | 2018-01-14 17:32 | Discharge Summary ---
Diagnosis/Chief Complaint Date of Admission Jan 12, 2018 at 11:05 am Date of Discharge Discharge Date: Jan 14, 2018 Discharge Diagnosis 1. Intractable Nausea and Vomiting with Hematemesis indicating Upper GI Hemorrhage and Abnormal Weight Loss--EGD showed Esophageal Varices, Esophageal Erosions and Necrotic Esophageal Tissue 2. Memory Loss/Confusion--Vascular Dementia 3. UTI--improved 4. COPD with Ongoing Tobacco Abuse 5. Weakness--improved 6. Chest Pain--Noncardiac etiology, GI etiology from above 7. Acute Anemia due to dilution and Blood Loss from Esophageal Varices Reason Hospital Visit This is a 77 year old female with a known history of COPD with ongoing tobacco abuse as well as recent worsening memory. She had the onset of nausea and vomiting at the end of last week and had ongoing nausea and vomiting through the weekend with at least one episode of coffee ground emesis and with very little oral intake. She also started experiencing substernal chest pain. She was brought to my office by her sister with weakness and was noted to have had an 8 pound weight loss. It was decided to directly admit her for intractable nausea and vomiting with upper GI hemorrhage, chest pain, weakness and confusion. Discharge Summary Hospital Course Hospital Course This is a 77 year old female with a known history of COPD with ongoing tobacco abuse as well as recent worsening memory. She had the onset of nausea and vomiting at the end of last week and had ongoing nausea and vomiting through the weekend with at least one episode of coffee ground emesis and with very little oral intake. She also started experiencing substernal chest pain. She was brought to my office by her sister with weakness and was noted to have had an 8 pound weight loss. It was decided to directly admit her for intractable nausea and vomiting with upper GI hemorrhage, chest pain, weakness and confusion. The patient was started on IV protonix and and IVF rehydration. She had no further nausea or vomiting after the start of the IV protonix. She underwent cardiac rule out with negative cardiac enzymes and no acute changes on her EKG. Her chest pain resolved with the IV protonix. She underwent a CT scan of the head with showed microvascular changes. WE did discuss vascular dementia and risk factor reduction as well as possible medications like aricept. After hydration, her hemoglobin did drop from 12.3 on admit to 10.5 on discharge. She was treated with rocephin as well for UTI. Dr. Wheeler was consulted and the patient underwent an EGD on 01/14/18 which showed esophageal varices which was the likely cause of her hematemesis, as well as esophageal erosions and areas of necrosis in the esophagus. Dr. Wheeler discussed this with GI and they will followup with the patient to complete further workup as an outpatient. At this time she will be discharged home on protonix and carafate. I will fwup with her in 1 week. Labs Laboratory Tests 01/12/18 12:50: Red Blood Count 4.15L, Mean Platelet Volume 10.7H, Neutrophils (%) (Auto) 76H, Glucose Level 117H 01/12/18 15:50: Urine Urobilinogen 4H, Urine Leukocyte Esterase 3+H, Urine WBC 50-100H, Urine Squamous Epithelial Cells >50H, Urine Bacteria MODERATEH 01/12/18 18:47: 01/13/18 05:40: Red Blood Count 3.86L, Mean Platelet Volume 10.8H, Hemoglobin 11.3L, Hematocrit 34L, Monocytes (%) (Auto) 15H 01/13/18 05:46: Chloride Level 108H 01/13/18 10:30: 01/14/18 06:05: Red Blood Count 3.57L, Hemoglobin 10.5L, Hematocrit 32L, Mean Platelet Volume 10.8H, Monocytes (%) (Auto) 15H Procedures None. Discharge Physical Examination Allergies: Coded Allergies: Penicillins (Verified Allergy, Severe, ANAPHYLAXIS, 01/14/18) Per Dr. Hinojosa patient has had Cephalosporins in the past without issue Vitals & I&Os Vital Signs Date Time Temp Pulse Resp B/P (MAP) Pulse Ox O2 Delivery O2 Flow Rate FiO2 01/14/18 16:39 97.7 73 18 146/68 (94) 93 Room Air 01/14/18 02:09 2.00 General Appearance: Alert, Oriented X3, Cooperative Respiratory: Other (bilateral rhonchi) Cardiovascular: Regular Rate Abdominal: Normal Bowel Sounds, Soft, No Tenderness Extremities: No Clubbing, No Cyanosis, No Edema Psych/Mental Status: Mental Status NL, Mood NL Discharge Home Medications Reviewed and agree with Discharge Medication list on patient's Discharge Instruction sheet Instructions to Patient/Family Please see electronic discharge instructions given to patient. Clinical Quality Measures DVT/VTE Risk/Contraindication: Risk Factor Score Per Nursin RFS Level Per Nursing on Admit: 3=High RIGOBERTO HINOJOSA DO Jan 14, 2018 17:32
== END 2018-01-14 18:35 | disposition home or self-care (01) | DRG 369 ==
LOC: 4TH 11:05
PROVIDERS: ADMIT Family Medicine; ATTEND Family Medicine
PROC: 0DB68ZX Excision of Stomach, Via Natural or Artificial Opening Endoscopic, Diagnostic (ICD-10-PCS; principal; 2018-01-14 14:30)
DX: I85.01 Esophageal varices with bleeding (principal); K92.0 Hematemesis; K25.9 Gastric ulcer, unspecified as acute or chronic, without hemorrhage or perforation; N39.0 Urinary tract infection, site not specified; K22.8 Other specified diseases of esophagus; D50.0 Iron deficiency anemia secondary to blood loss (chronic); R63.4 Abnormal weight loss; R07.89 Other chest pain; F01.50 Vascular dementia, unspecified severity, without behavioral disturbance, psychotic disturbance, mood disturbance, and anxiety; J44.9 Chronic obstructive pulmonary disease, unspecified; R53.1 Weakness; F17.210 Nicotine dependence, cigarettes, uncomplicated
CPT/HCPCS: 36415; 70450; 71046; 76705; 80048; 80053; 81000; 82150; 82274; 83690; 84443; 84484; 85025; 87088; 93005; 93306; 93880; 94640; 94760

== ENCOUNTER 2018-11-29 15:32 | Inpatient (IN) | payer MEDICARE, OTHER ==
[~2018-11-29] VITALS: Ht 154.9 cm; Wt 67.1 kg
[~2018-11-29 15:32] MED LIST changes: +ALBU18HF2 INH; +AMLO10TA7 PO; +ASPI-983 PO; +ATOR40TA70 PO; +ESCI5TAB12 PO; +IPRA0.2S51 NEB; +METO-370 PO; +OMEG-160 PO; +OMEP20TA7 PO; +PANT40TA2 PO; +POTA99TA21 PO; +SUCR1TAB36 PO; +VITA1TAB17 PO
[2018-11-29 16:15] VITALS: BP 119/77
[2018-11-29] MEDS ORDERED: PATIENT MAY USE OWN MEDS, ALL PO SCH (16:15)
[2018-11-29] MEDS ORDERED: DONE10TA41 PO (16:16)
[2018-11-29] MEDS ORDERED: ESCI20TA45 PO (16:16)
[2018-11-29] MEDS ORDERED: MEMA10TA22 PO (16:16)
[2018-11-29] MEDS ORDERED: PANT20TA3 PO (16:16)
[2018-11-29] MEDS ORDERED: ASPI-983 PO (16:20)
[2018-11-29] MEDS ORDERED: IPRA0.2S51 NEB (16:26)
--- NOTE | 2018-11-29 16:26 | NUR ---
PATIENT HAD HER BOTTLES IN THE ROOM WITH HER. I COMPARED THEM WITH THE EXT MED HX. PATIENT TAKES ASPIRIN 81MG DAILY OTC. I ALSO CALLED [facility] IN [place] TO VERIFY THE NEBULIZER SOLUTION THE PATIENT HAS ON HAND AT HOME. THEY LAST FILLED IPRATROPIUM QID IN SEPTEMBER. FAMILY IN ROOM WITH THE PATIENT STATES THEY DO NOT THINK SHE USES IT BUT SHE DOES HAVE IT ON HAND IF NEEDED.
[2018-11-29 16:30] VITALS: BP 148/93
[2018-11-29] MEDS ORDERED: CATHETER FLUSH 10 ML SYR IV PRN (16:30)
[2018-11-29 16:32] LABS: BASOPHILS % (AUTO) 0 % (0-10); EOSINOPHILS # (AUTO) 0.3 10^3/uL (0.0-0.3); EOSINOPHILS % (AUTO) 3 % (0-10); HEMATOCRIT 41 % (35-52); HEMOGLOBIN 13.1 G/DL (11.5-16.0); LYMPHOCYTES # (AUTO) 1.6 X 10^3 (1.0-4.0); LYMPHOCYTES % (AUTO) 18 % (12-44); MEAN CORPUSCULAR HEMOGLOBIN 28 PG (25-34); MEAN CORPUSCULAR HGB CONC 32 G/DL (32-36); MEAN CORPUSCULAR VOLUME 87 FL (80-99); MEAN PLATELET VOLUME 10.1 FL (7.4-10.4); MONOCYTES # (AUTO) 1.3 X 10^3 (0.0-1.0); MONOCYTES % (AUTO) 15 % (0-12); NEUTROPHILS # (AUTO) 5.5 X 10^3 (1.8-7.8); NEUTROPHILS % (AUTO) 63 % (42-75); PLATELET COUNT 362 10^3/uL (130-400); RED CELL DISTRIBUTION WIDTH 14.7 % (10.0-14.5); WHITE BLOOD COUNT 8.6 10^3/uL (4.3-11.0)
--- NOTE | 2018-11-29 16:41 | History & Physicial ---
History of Present Illness History of Present Illness Reason for visit/HPI This is a 78 year old female with known COPD and dementia who was brought to my office by her daughter due to worsening memory, worsening shortness of air and concerns about the patient not eating or taking proper care of herself. The patient had purse lip breathing on exam with conversational dyspnea and had oxygen desaturation to 87% with minimal exertion. She had also had a 7 pound weight loss since her last visit one month ago. The daughter also reported possible urinary incontinence as she has noticed wet spots on the floor and couch of the patient's house. We will directly admit the patient for treatment of her hypoxia and acute COPD exacerbation as well as further workup of her weight loss and worsening confusion. We will also get a social organization professor consult to discuss senior care placement on discharge. Date of Admission Nov 29, 2018 at 16:02 Date Seen by a Provider: Nov 29, 2018 Time Seen by a Provider: 15:30 I consulted on this patient on 11/29/18 16:04 Attending Physician Neelam Hinojosa DO Admitting Physician Neelam Hinojosa DO Consult Allergies and Home Medications Allergies Coded Allergies: Penicillins (Verified Allergy, Severe, ANAPHYLAXIS, 01/14/18) Per Dr. Hinojosa patient has had Cephalosporins in the past without issue Home Medications Albuterol Sulfate 18 Gm Hfa.aer.ad, 2 PUFF INH Q4H PRN for SHORTNESS OF BREATH, (Reported) Amlodipine Besylate 10 Mg Tablet, 10 MG PO DAILY, (Reported) Atorvastatin Calcium 40 Mg Tablet, 40 MG PO DAILY, (Reported) Escitalopram Oxalate 5 Mg Tablet, 5 MG PO DAILY, (Reported) Ipratropium [place] 0.2 Mg/1 Ml Solution, 0.5 MG NEB QID, (Reported) Metoprolol Succinate 50 Mg Tab.er.24h, 50 MG PO DAILY, (Reported) Pantoprazole Sodium 40 Mg Tablet.dr, 40 MG PO BID Prescribed by: NEELAM HINOJOSA on 01/14/181722 Sucralfate 1 Gm Tablet, 1 GM PO ACHS Prescribed by: NEELAM HINOJOSA on 01/14/181722 Patient Home Medication List Home Medication List Reviewed: Yes Past Fkmnbds-Uejfyi-Ypivlp Hx Patient Social History Alcohol Beverage of Choice: Wine Type Used: Cigarettes Recent Foreign Travel: No Contact w/other who traveled: No Recent Hopitalizations: Yes (ASTHMA ATTACK-2005) Immunizations Up To Date Date of Pneumonia Vaccine: Sep 09, 2010 Date of Influenza Vaccine: Aug 09, 2017 Seasonal Allergies Seasonal Allergies: No Surgeries Yes Respiratory Yes (COPD) Currently Using CPAP: No Currently Using BIPAP: No Cardiovascular Yes Neurological No Reproductive System Hx Reproductive Disorders: Yes Genitourinary Yes Kidney Stones Gastrointestinal No Musculoskeletal No Endocrine History of Endocrine Disorders: No HEENT History of HEENT Disorders: Yes Hearing Impairment: Hard of Hearing Cancer No Psychosocial History of Psychiatric Problem: No Integumentary History of Skin or Integumenta: No Blood Transfusions History of Blood Disorders: No Review of Systems Constitutional: weakness, weight loss EENTM: No see HPI, No no symptoms reported, No ear discharge, No hearing loss, No ear pain, No blurred vision, No double vision, No eye pain, No tearing, No vision loss, No dental problems, No hoarseness, No mouth pain, No mouth swelling , No epistaxis, No nose congestion, No nose pain, No throat pain, No throat swelling, No other Respiratory: cough, dyspnea on exertion, short of breath, wheezing Cardiovascular: No no symptoms reported, No see HPI, No chest pain, No edema, No Hx of Intervention, No palpitations, No syncope, No vascular heart diseas, No other Gastrointestinal: No RUQ, No LUQ, No RLQ, No LLQ, No no symptoms reported, No see HPI, No abdominal pain, No constipation, No diarrhea, No dysphagia, No hematemesis, No heartburn, No jaundice, No loss of appetite, No melena, No nausea, No vomiting, No other Genitourinary: incontinence Musculoskeletal: muscle weakness Skin: No no symptoms reported, No see HPI, No change in color, No change in hair/nails, No dryness, No hx of skin cancer, No lesions, No lumps, No pruritus , No rash, No other Psychiatric/Neurological: Weakness, Other (confusion) Physical Exam Vital Signs Capillary Refill : Height, Weight, BMI Height: 5'2.00" Weight: 150lbs. 0.0oz. 68.419910qi; 27.4 BMI Method: General Appearance: Moderate Distress (respiratory) HEENT: Normal ENT Inspection Neck: Supple Respiratory: Decreased Breath Sounds, Respiratory Distress (purse lip breathing with conversational dyspnea and audible wheezing), Wheezing Cardiovascular: Regular Rate, Rhythm, Systolic Murmur Gastrointestinal: Normal Bowel Sounds, Non Tender, Soft Rectal: Deferred Back: No CVA Tenderness Extremity: Non Tender, No Calf Tenderness, No Pedal Edema Neurologic/Psychiatric: Alert, Disoriented Skin: Warm/Dry Assessment/Plan Assessment and Plan 1. Acute Respiratory Distress with Acute Hypoxia--admit on oxygen, Check CXR 2. Acute Exacerbation of COPD--admit for oxygen, SVNS with duoneb, IV solumedrol 3. Worsening Vascular Dementia with Weight Loss/Adult Failure to Thrive--SS for placement on discharge 4. Urinary Incontinence with recent worsening confusion--check UA, lab Admission Diagnosis Admission Status: Inpatient Order (span 2 midnights) Reason for Inpatient Admission: Patient will require IV solumedrol with possible antibiotics as well as oxygen and oxygen qualification which will take at least 2 midnights NEELAM HINOJOSA DO Nov 29, 2018 16:41
[2018-11-29 16:44] LABS: ALANINE AMINOTRANSFERASE 6 U/L (0-55); ALBUMIN 4.3 GM/DL (3.2-4.5); ALKALINE PHOSPHATASE 88 U/L (40-136); BILIRUBIN,TOTAL 0.7 MG/DL (0.1-1.0); BUN/CREATININE RATIO 20; CALCIUM 9.7 MG/DL (8.5-10.1); CARBON DIOXIDE 25 MMOL/L (21-32); CHLORIDE 103 MMOL/L (98-107); GFR ESTIMATED > 60; GLUCOSE 83 MG/DL (70-105); POTASSIUM 4.3 MMOL/L (3.6-5.0); SODIUM 138 MMOL/L (135-145); TOTAL PROTEIN 7.3 GM/DL (6.4-8.2)
[2018-11-29] MEDS: methylPREDNISolone 125 MG (Solu-MEDROL) VIAL IVP SCH (17:13)
[2018-11-29] MEDS: RT-ALBUTEROL/IPRATROPIUM 3 ML (DUONEB) VIAL INH SCH ×2 (17:18→21:46)
[2018-11-29] MEDS ORDERED: ACETAMINOPHEN 500 MG TAB (TYLENOL) PO PRN (19:00)
[2018-11-29 20:00] VITALS: BP 125/94
[2018-11-29] MEDS: DONEPEZIL 10 MG (ARICEPT) TAB PO SCH (21:39)
[2018-11-29] MEDS: MEMANTINE 10 MG (NAMENDA) TABLET PO SCH (21:40)
[2018-11-30] VITALS (7 sets, daily range): BP systolic 112–150; BP diastolic 58–79
[2018-11-30] MEDS: methylPREDNISolone 125 MG (Solu-MEDROL) VIAL IVP SCH ×4 (00:30→20:03)
[2018-11-30] MEDS: CATHETER FLUSH 10 ML SYR IV SCH ×4 (00:30→20:49)
[2018-11-30] MEDS: RT-ALBUTEROL/IPRATROPIUM 3 ML (DUONEB) VIAL INH SCH ×6 (01:50→22:04)
[2018-11-30] MEDS: PANTOPRAZOLE 40 MG (PROTONIX) TAB PO SCH (07:42)
--- NOTE | 2018-11-30 07:50 | NUR ---
Patient transferred to 416-1 per bed accompanied by staff. Patient and family notified and understand transfer. Personal belongings with patient. Report recieved from associate program manager silviculture teacher and this rn to assume care of patient at this time. Please see EMR for patient assessment and vitals.
[2018-11-30] MEDS ORDERED: amLODIPine 5 MG (NORVASC) TAB PO SCH (09:00)
[2018-11-30] MEDS ORDERED: ESCITALOPRAM 10 MG PO SCH (09:00)
--- NOTE | 2018-11-30 09:20 | Diagnostic Imaging Report ---
INDICATION: Shortness of breath COMPARISON: 01/12/2018 FINDINGS: Frontal and lateral views the chest demonstrate clear lungs bilaterally. The heart size is normal. There is no pneumothorax. Osseous structures are normal. IMPRESSION: No acute findings. Normal chest. Dictated by: Dictated on workstation # [id number]
[2018-11-30] MEDS: amLODIPine 10 MG (NORVASC) TAB PO SCH (09:40)
[2018-11-30] MEDS: MEMANTINE 10 MG (NAMENDA) TABLET PO SCH ×2 (09:40→20:08)
[2018-11-30] MEDS: ASPIRIN 81 MG CHEW (CHILDREN'S ASA) PO SCH (09:41)
--- NOTE | 2018-11-30 12:35 | Progress Note (SOAP) ---
Subjective Date Seen by a Provider: Nov 30, 2018 Time Seen by a Provider: 12:31 Subjective/Events-last exam Fwup acute respiratory distress with hypoxia, exacerbation of COPD, worsening dementia, adult failure to thrive. Not as short of air today. Appetite good per family with steroids but shakey from steroids/breathing treatments. Objective Exam Vital Signs Date Time Temp Pulse Resp B/P (MAP) Pulse Ox O2 Delivery O2 Flow Rate FiO2 11/30/18 11:39 93 Nasal Cannula 3.00 11/30/18 07:00 70 11/30/18 06:35 98 Nasal Cannula 1.50 11/30/18 04:00 72 16 122/75 (91) 94 Nasal Cannula 2.00 11/30/18 04:00 98.3 11/30/18 01:51 94 Nasal Cannula 2.00 11/30/18 01:00 74 11/30/18 00:00 97.8 75 18 112/58 (76) 95 Nasal Cannula 2.00 11/29/18 21:48 95 Nasal Cannula 2.00 11/29/18 20:00 98.3 81 20 125/94 (104) 94 Nasal Cannula 2.00 11/29/18 20:00 95 Nasal Cannula 2.00 11/29/18 19:00 85 11/29/18 17:33 97 Nasal Cannula 2.00 11/29/18 17:19 93 Room Air 11/29/18 17:03 75 11/29/18 16:30 76 22 148/93 (111) 96 Nasal Cannula 2.00 11/29/18 16:15 97.0 86 22 119/77 (91) 97 Room Air I & O 11/30/18 07:00 Intake Total 200 ml Output Total 750 ml Balance -550 ml Capillary Refill : General Appearance: Mild Distress Neck: Supple Respiratory: Crackles (bibasilar), Decreased Breath Sounds Cardiovascular: Regular Rate, Rhythm Gastrointestinal: normal bowel sounds, non tender, soft Extremity: Non Tender, No Calf Tenderness, No Pedal Edema Neurologic/Psychiatric: Alert Results Lab Laboratory Tests 11/29/18 16:19: White Blood Count 8.6, Red Blood Count 4.69, Hemoglobin 13.1, Hematocrit 41, Mean Corpuscular Volume 87, Mean Corpuscular Hemoglobin 28, Mean Corpuscular Hemoglobin Concent 32, Red Cell Distribution Width 14.7H, Platelet Count 362, Mean Platelet Volume 10.1, Neutrophils (%) (Auto) 63, Lymphocytes (%) (Auto) 18 , Monocytes (%) (Auto) 15H, Eosinophils (%) (Auto) 3, Basophils (%) (Auto) 0, Neutrophils # (Auto) 5.5, Lymphocytes # (Auto) 1.6, Monocytes # (Auto) 1.3H, Eosinophils # (Auto) 0.3, Basophils # (Auto) 0.0, Sodium Level 138, Potassium Level 4.3, Chloride Level 103, Carbon Dioxide Level 25, Anion Gap 10, Blood Urea Nitrogen 18, Creatinine 0.90, Estimat Glomerular Filtration Rate > 60, BUN/ Creatinine Ratio 20, Glucose Level 83, Calcium Level 9.7, Corrected Calcium 9.5 , Total Bilirubin 0.7, Aspartate Amino Transf (AST/SGOT) 11, Alanine Aminotransferase (ALT/SGPT) 6, Alkaline Phosphatase 88, Total Protein 7.3, Albumin 4.3 Assessment/Plan Assessment/Plan Assess & Plan/Chief Complaint 1. Acute Respiratory Distress with Hypoxia--on NC at 3L 2. Acute Exacerbation of COPD--decrease solumedrol dose but will add doxycycline due to crackles in bases 3. Worsening Dementia with Adult Failure to Thrive--will need placement on discharge Clinical Quality Measures Admission Status Admission Dx 1. Acute Respiratory Distress with Acute Hypoxia--admit on oxygen, Check CXR 2. Acute Exacerbation of COPD--admit for oxygen, SVNS with duoneb, IV solumedrol 3. Worsening Vascular Dementia with Weight Loss/Adult Failure to Thrive--SS for placement on discharge 4. Urinary Incontinence with recent worsening confusion--check UA, lab DVT/VTE Risk/Contraindication: Risk Factor Score Per Nursin RFS Level Per Nursing on Admit: 4+=Very High RIGOBERTO ROSAS DO Nov 30, 2018 12:35
--- NOTE | 2018-11-30 13:07 | NUR ---
CM/SS met with the patient and her sister that was present in the room. They stated that they will do what dr feels best for them to do, in regards to a SNF stay. Will continue to follow in EMR.
[2018-11-30 14:24] LABS: BILIRUBIN,URINE NEGATIVE (NEGATIVE); CLARITY,URINE SLIGHTLY CLOUDY; COLOR,URINE YELLOW; GLUCOSE, URINE (UA) 3+ (NEGATIVE); KETONES,URINE 1+ (NEGATIVE); LEUKOCYTE ESTERASE ,URINE 2+ (NEGATIVE); NITRITE,URINE NEGATIVE (NEGATIVE); PH,URINE 5 (5-9); PROTEIN,URINE 2+ (NEGATIVE); UROBILINOGEN,URINE NORMAL (NORMAL)
[2018-11-30 14:31] LABS: BACTERIA,URINE FEW /HPF
--- NOTE | 2018-11-30 16:00 | NUR ---
CM/SS spoke to the patient's daughter (Kisha). She stated that they are considering a SNF for possible long-term care. She stated patient has not been doing well taking her meds and that she has set them up and then calls patient 2xs daily to ensure she took her meds. That the patient also has meals on wheels but does not do well eating a full meal or then will not have dinner unless her daughter brings her over a plate, daughter stated that she does not think she remembers to eat. Encouraged the daughter to speak with the SNF around and to try and tour them as well. She stated that she would and talk to the patient's sister about placement also.
[2018-11-30] MEDS: DOXYCYCLINE 100 MG (VIBRAMYCIN) TABLET PO SCH (17:29)
[2018-11-30] MEDS: cefTRIAXone FOR IV USE 1,000 MG in NS (IVPB) 50 ML IV SCH (17:29)
[2018-11-30] MEDS: NICOTINE 7 MG (NICODERM) PATCH TD SCH (17:33)
[2018-11-30] MEDS: DONEPEZIL 10 MG (ARICEPT) TAB PO SCH (20:08)
--- NOTE | 2018-11-30 20:15 | NUR ---
Pt highly anxious with slight increase in work of breathing. Daughter at bedside informed this RN that pt has increased anxiety r/t impending NH placement. Dr. Hinojosa notified. Orders received for Xanax 0.25 mg PO TID PRN et hold 0000 dose of solu-medrol.
--- NOTE | 2018-11-30 20:39 | NUR ---
Pt ACHS accucheck result is 301. Dr. Hinojosa notified. Orders received to start pt on sliding scale C insulin regimen.
[2018-11-30] MEDS ORDERED: inSUlin ASPART (NovoLOG) 1 UNIT/0.01 ML (CHARGE PER UNIT) SC SCH (20:45)
[2018-11-30] MEDS: ALPRAZolam 0.25 MG (XANAX) TAB PO PRN (20:47)
[2018-11-30] MEDS ORDERED: inSUlin ASPART (NovoLOG) 1 UNIT/0.01 ML (CHARGE PER UNIT) ONE (21:37)
[2018-11-30] MEDS: inSUlin ASPART (NovoLOG) 1 UNIT/0.01 ML (CHARGE PER UNIT) SC SCH (21:43)
[2018-12-01] MEDS: RT-ALBUTEROL/IPRATROPIUM 3 ML (DUONEB) VIAL INH SCH ×6 (02:31→21:45)
[2018-12-01 04:00] VITALS: BP 118/59
[2018-12-01] MEDS: DOXYCYCLINE 100 MG (VIBRAMYCIN) TABLET PO SCH ×2 (06:46→17:36)
[2018-12-01] MEDS: CATHETER FLUSH 10 ML SYR IV SCH ×3 (06:46→22:17)
[2018-12-01] MEDS: inSUlin ASPART (NovoLOG) 1 UNIT/0.01 ML (CHARGE PER UNIT) SC SCH ×4 (06:46→21:37)
[2018-12-01] MEDS: PANTOPRAZOLE 40 MG (PROTONIX) TAB PO SCH (06:46)
[2018-12-01 08:00] VITALS: BP 128/62
[2018-12-01] MEDS: amLODIPine 10 MG (NORVASC) TAB PO SCH (08:56)
[2018-12-01] MEDS: MEMANTINE 10 MG (NAMENDA) TABLET PO SCH ×2 (08:56→21:37)
[2018-12-01] MEDS: ASPIRIN 81 MG CHEW (CHILDREN'S ASA) PO SCH (08:56)
[2018-12-01 12:00] VITALS: BP 123/68
--- NOTE | 2018-12-01 12:18 | NUR ---
CM/ALEXANDER spoke to the daughter and sister that were present this day. She stated that they will be touring [facility] this day at 2pm. The apprentice technician was in seeing the patient at this time. Will continue to follow along.
--- NOTE | 2018-12-01 13:27 | NUR ---
Pt is Church. Anointed to day by Fr Shafer. provided prayer and Communion.
--- NOTE | 2018-12-01 14:45 | Physical Therapy Evaluation ---
PT Evaluation-General Medical Diagnosis Admission Date Nov 29, 2018 at 16:02 Medical Diagnosis: COPD exacerbation Onset Date: Nov 29, 2018 Therapy Diagnosis Therapy Diagnosis: decreased activity tolerance Height/Weight Height (Feet): 5 Height (Inches): 1.00 Weight (Pounds): 144 Weight (Ounces): 7.0 Precautions Precautions/Isolations: Fall Prevention, Standard Precautions Weight Bear Status Right Lower Extremity: Right Full Weight Bearing Left Lower Extremity: Left Full Weight Bearing Referral Physician: Dr. Hinojosa Reason for Referral: Evaluation/Treatment Medical History Pertinent Medical History: COPD, Dementia Additional Medical History asthma, kidney stones, [place] Social History Home: Single Level Current Living Status: Alone Entry Into Home: Stairs Without Railing PT Steps Into Home: 2 Prior/Core FIM Prior Level of Function Therapy Code Descriptions/Definitions Functional [place] Measure: 0=Not Assessed/NA 4=Minimal Assistance 1=Total Assistance 5=Supervision or Setup 2=Maximal Assistance 6=Modified [place] 3=Moderate Assistance 7=Complete [place] Therapy Quality Codes: 6 Independent with activity with or without an assistive device 5 Patient requires set up or clean up by helper. Patient completes activity by themselves 4 Supervision or touching assist (CGA). [place] provide cues , steadying assist 3 The helper provides less than half the effort to complete the activity 2 The helper provides more than half the effort to complete the activity 1 Dependent. The helper does all the effort to complete an activity 7 Patient refused to complete or attempt activity 9 The patient did not perform the activity before the current illness or injury 88 Not attempted due to Medical conditions or safety concerns Functional Abilities and Goals: Independent: Patient completed the activities by him/herself, with or without an assistive device, with no assistance from a helper. Needed Some Help: Patient needed partial assistance from another person to complete activities. Dependent: A helper completed the activities for the patient. Unknown: Not Applicable: Bed Mobility: 7 Transfers (B,C,W/C) (FIM): 7 Gait: 7 Stairs: 7 Indoor Mobility (Ambulation): Independent Stairs: Independent PT Evaluation-Current Subjective Pt was in bed and agreed to PT. Pain Numeric Pain Scale: 0-No Pain Location: No Pain Reported Pt/Family Goals Pt would like to return home independent. Objective Patient Orientation: Person, Place ROM/Strength ROM Lower Extremities WNL Strength Lower Extremities BLE 5/5 gross motor Integumentary/Posture Bowel Incontinence: No Bladder Incontinence: No Neuromuscular (Tone, Coordination, Reflexes) NT Sensory Vision: Functional Hearing: Functional Sensation Right Lower Extremit: Intact Sensation Left Lower Extremity: Intact Transfers Therapy Code Descriptions/Definitions Functional [place] Measure: 0=Not Assessed/NA 4=Minimal Assistance 1=Total Assistance 5=Supervision or Setup 2=Maximal Assistance 6=Modified [place] 3=Moderate Assistance 7=Complete [place] Transfers (B, C, W/C) (FIM): 7 Scootin Rollin Supine to/from Sit: 7 Sit to/from Stand: 7 Gait Mode of Locomotion: Walk Anticipated Mode of Locomotion: Walk Gait (FIM): 7 Distance (FIM): 3=150 ft Distance: 800' Gait Level of Assist: 7 Gait Persons Needed: 1 Gait Assistive Device: None Comments/Gait Description No LOB or unsteadiness. Balance Sitting Static: Normal Sitting Dynamic: Normal Standing Static: Normal Standing Dynamic: Normal Assessment/Needs Pt was able to perform all bed mobility indep. Pt was able to sit<>stand indep. Pt amb with no AD 800'. PT told pt that she could get up ab morena around room during the day. PT does not plan on picking pt up due to pts good functional mobility. Pt knows that when she gets short of breath to sit down and perform deep breathing ex. Rehab Potential: Good PT Plan Problem List Problem List: Activity Tolerance Treatment/Plan Treatment Plan: Discontinue PT Treatment Plan: Other Treatment Duration: Dec 01, 2018 Frequency: Estimated Hrs Per Day: Other Patient and/or Family Agrees t: Yes Safety Risks/Education Patient Education: Gait Training, Transfer Techniques, Correct Positioning, Safety Issues Teaching Recipient: Patient Teaching Methods: Demonstration, Discussion Response to Teaching: Verbalize Understanding Discharge Recommendations Therapy D/C Recommendations: Home w/ Family Support Time/GCodes Time In: 1430 Time Out: 1441 Total Billed Treatment Time: 11 Total Billed Treatment 1 visit EVlowC 11 min DACIA GUZMAN PT Dec 01, 2018 14:45
[2018-12-01] MEDS: methylPREDNISolone 40 MG/ML (Solu-MEDROL) VIAL IV SCH ×2 (14:46→22:16)
--- NOTE | 2018-12-01 15:35 | NUR ---
CM/SS spoke with Kisha (patient's Daughter) she stated that they had been to [facility] and would like her mother's information sent their as their first preference. Referral packet sent to [facility].
[2018-12-01] MEDS: NICOTINE 7 MG (NICODERM) PATCH TD SCH (17:37)
[2018-12-01] MEDS: NICOTINE PATCH REMOVAL TP SCH (17:37)
[2018-12-01] MEDS: cefTRIAXone FOR IV USE 1,000 MG in NS (IVPB) 50 ML IV SCH (17:37)
--- NOTE | 2018-12-01 19:21 | Progress Note (SOAP) ---
Subjective Date Seen by a Provider: Dec 01, 2018 Time Seen by a Provider: 12:45 Subjective/Events-last exam Fwup acute respiratory distress with hypoxia, exacerbation of COPD, worsening dementia, adult failure to thrive. Off oxygen but appears very restless. Audible wheezing. Objective Exam Vital Signs Date Time Temp Pulse Resp B/P (MAP) Pulse Ox O2 Delivery O2 Flow Rate FiO2 12/01/18 15:02 93 Nasal Cannula 2.00 12/01/18 12:00 97.8 81 20 123/68 (86) 94 Room Air 12/01/18 11:17 93 Nasal Cannula 2.00 12/01/18 08:00 Room Air 12/01/18 08:00 98.9 81 20 128/62 (84) 94 Room Air 12/01/18 07:10 96 Nasal Cannula 2.00 12/01/18 04:00 98.5 81 20 118/59 (78) 96 Nasal Cannula 2.00 12/01/18 02:31 95 Nasal Cannula 2.00 11/30/18 23:05 98.5 88 20 150/69 (96) 96 Room Air 11/30/18 22:04 94 Nasal Cannula 2.00 11/30/18 20:00 Nasal Cannula 2.00 11/30/18 20:00 98.7 83 20 147/66 (93) 95 Room Air I & O 12/01/18 07:00 Intake Total 2540 ml Output Total 900 ml Balance 1640 ml Capillary Refill : General Appearance: Mild Distress Neck: Supple Respiratory: Decreased Breath Sounds, Wheezing Cardiovascular: Regular Rate, Rhythm Gastrointestinal: normal bowel sounds, non tender, soft Extremity: No Calf Tenderness, No Pedal Edema Neurologic/Psychiatric: Alert, Disoriented Skin: Warm/Dry Results Lab Laboratory Tests 11/30/18 20:37: Glucometer 301H 11/30/18 23:43: Glucometer 199H 12/01/18 02:34: Glucometer 231H 12/01/18 06:00: Glucometer 206H 12/01/18 12:46: Glucometer 137H 12/01/18 17:09: Glucometer 252H Assessment/Plan Assessment/Plan Assess & Plan/Chief Complaint 1. Acute Respiratory Distress with Hypoxia--off NC but the NC was on the floor and the oxygen was still going at 2L so will have oxygen sat assessed now on RA and with ambulation and restart oxygen pending these results 2. Acute Exacerbation of COPD--decrease solumedrol, continue SVNS 3. Worsening Dementia with Adult Failure to Thrive--daughter meeting with Bhakti Ludwig today 4. Uncontrolled DMII--on SSI, worsened from steroids 5. Acute Lower Respiratory Tract Infection--on Rocephin/Doxycycline Clinical Quality Measures Admission Status Admission Dx 1. Acute Respiratory Distress with Acute Hypoxia--admit on oxygen, Check CXR 2. Acute Exacerbation of COPD--admit for oxygen, SVNS with duoneb, IV solumedrol 3. Worsening Vascular Dementia with Weight Loss/Adult Failure to Thrive--SS for placement on discharge 4. Urinary Incontinence with recent worsening confusion--check UA, lab DVT/VTE Risk/Contraindication: Risk Factor Score Per Nursin RFS Level Per Nursing on Admit: 4+=Very High RIGOBERTO ROSAS DO Dec 01, 2018 19:21
[2018-12-01 20:55] VITALS: BP 135/63
[2018-12-01] MEDS: DONEPEZIL 10 MG (ARICEPT) TAB PO SCH (21:37)
[2018-12-01] MEDS: ALPRAZolam 0.25 MG (XANAX) TAB PO PRN (21:37)
[2018-12-02 00:30] VITALS: BP 116/53
[2018-12-02] MEDS: RT-ALBUTEROL/IPRATROPIUM 3 ML (DUONEB) VIAL INH SCH ×6 (02:52→22:35)
[2018-12-02 04:00] VITALS: BP 120/60
[2018-12-02] MEDS: PANTOPRAZOLE 40 MG (PROTONIX) TAB PO SCH (06:43)
[2018-12-02] MEDS: DOXYCYCLINE 100 MG (VIBRAMYCIN) TABLET PO SCH ×2 (06:43→18:27)
[2018-12-02] MEDS: CATHETER FLUSH 10 ML SYR IV SCH ×3 (06:43→20:59)
[2018-12-02] MEDS: methylPREDNISolone 40 MG/ML (Solu-MEDROL) VIAL IV SCH (06:43)
[2018-12-02] MEDS: inSUlin ASPART (NovoLOG) 1 UNIT/0.01 ML (CHARGE PER UNIT) SC SCH ×4 (06:44→20:59)
[2018-12-02 08:00] VITALS: BP 150/67
--- NOTE | 2018-12-02 08:04 | NUR ---
CM/SS [facility] will accept placement of the patient when she is able to discharge.
--- NOTE | 2018-12-02 08:43 | NUR ---
CM/SS spoke with the patient's daughter (Kisha) letting her know that [facility] did accept. She will take over some belongings this day and make the room more comfortable for her mother. Family was thinking that the patient would discharge on Thursday then to [facility].
[2018-12-02] MEDS: MEMANTINE 10 MG (NAMENDA) TABLET PO SCH ×2 (08:58→20:58)
[2018-12-02] MEDS: amLODIPine 10 MG (NORVASC) TAB PO SCH (08:58)
[2018-12-02] MEDS: ASPIRIN 81 MG CHEW (CHILDREN'S ASA) PO SCH (08:59)
--- NOTE | 2018-12-02 13:06 | NUR ---
provided prayer and Communion.
--- NOTE | 2018-12-02 13:10 | NUR ---
O2 94% ON ROOM AIR.
--- NOTE | 2018-12-02 14:33 | NUR ---
HOME OXYGEN STUDY WALKED PT ON ROOM AIR SPO2 DID NOT DROP BELOW 89%, PT DOES NOT REQUIRE OXYGEN
[2018-12-02 16:00] VITALS: BP 132/74
--- NOTE | 2018-12-02 18:01 | Progress Note (SOAP) ---
Subjective Date Seen by a Provider: Dec 02, 2018 Time Seen by a Provider: 12:45 Subjective/Events-last exam Fwup acute respiratory distress with hypoxia, exacerbation of COPD, worsening dementia, adult failure to thrive. Off oxygen again this AM. Plan is for DC to [facility] tomorrow. Objective Exam Vital Signs Date Time Temp Pulse Resp B/P (MAP) Pulse Ox O2 Delivery O2 Flow Rate FiO2 12/02/18 16:00 98.2 73 18 132/74 (93) 96 Nasal Cannula 2.00 12/02/18 14:35 92 Room Air 12/02/18 10:38 95 Nasal Cannula 2.00 12/02/18 08:00 Nasal Cannula 2.00 12/02/18 08:00 97.8 84 18 150/67 (94) 95 Nasal Cannula 2.00 12/02/18 06:53 94 Nasal Cannula 2.00 12/02/18 04:00 98.7 78 20 120/60 (80) 95 Nasal Cannula 2.00 12/02/18 02:52 95 Nasal Cannula 2.00 12/02/18 00:30 97.1 84 20 116/53 (74) 96 Nasal Cannula 2.00 2.00 12/01/18 21:45 92 Room Air 12/01/18 20:55 98.6 83 20 135/63 (87) 96 Room Air 12/01/18 20:00 Room Air 12/01/18 18:51 88 Room Air I & O 12/02/18 07:00 Intake Total 2585 ml Output Total 1825 ml Balance 760 ml Capillary Refill : Less Than 3 Seconds General Appearance: No Apparent Distress Respiratory: Decreased Breath Sounds, Wheezing (end expiratory) Cardiovascular: Regular Rate, Rhythm Gastrointestinal: normal bowel sounds, non tender, soft Extremity: Non Tender, No Calf Tenderness, No Pedal Edema Neurologic/Psychiatric: Alert, Oriented x3 Skin: Warm/Dry Results Lab Laboratory Tests 12/02/18 05:26: Glucometer 213H 12/02/18 11:25: Glucometer 146H Assessment/Plan Assessment/Plan Assess & Plan/Chief Complaint 1. Acute Respiratory Distress with Hypoxia--off NC during day but uses routinely at night, will do oxygen qualifier with [facility] prior to discharge to [facility] 2. Acute Exacerbation of COPD--changed solumedrol to oral prednisone, continue SVNS 3. Worsening Dementia with Adult Failure to Thrive--to [facility] tomorrow 4. Uncontrolled DMII--on SSI, improving as steroid dose decreased 5. Acute Lower Respiratory Tract Infection--on Rocephin/Doxycycline Clinical Quality Measures Admission Status Admission Dx 1. Acute Respiratory Distress with Acute Hypoxia--admit on oxygen, Check CXR 2. Acute Exacerbation of COPD--admit for oxygen, SVNS with duoneb, IV solumedrol 3. Worsening Vascular Dementia with Weight Loss/Adult Failure to Thrive--SS for placement on discharge 4. Urinary Incontinence with recent worsening confusion--check UA, lab DVT/VTE Risk/Contraindication: Risk Factor Score Per Nursin RFS Level Per Nursing on Admit: 4+=Very High RIGOBERTO ROSAS DO Dec 02, 2018 18:01
[2018-12-02] MEDS: cefTRIAXone FOR IV USE 1,000 MG in NS (IVPB) 50 ML IV SCH (18:24)
[2018-12-02] MEDS: NICOTINE PATCH REMOVAL TP SCH (18:26)
[2018-12-02] MEDS: NICOTINE 7 MG (NICODERM) PATCH TD SCH (18:26)
[2018-12-02] MEDS: DONEPEZIL 10 MG (ARICEPT) TAB PO SCH (20:58)
--- NOTE | 2018-12-02 21:15 | NUR ---
L.E: contacted dr Hinojosa regarding patients IV leaking. one dose of rocephin due at 1700, going to [place] and no other iv meds. Dr Hinojosa ok with leaving IV out.
[2018-12-03 00:08] VITALS: BP 121/60
[2018-12-03] MEDS: RT-ALBUTEROL/IPRATROPIUM 3 ML (DUONEB) VIAL INH SCH ×3 (02:25→09:33)
[2018-12-03] MEDS: CATHETER FLUSH 10 ML SYR IV SCH ×2 (06:05→09:40)
[2018-12-03] MEDS: inSUlin ASPART (NovoLOG) 1 UNIT/0.01 ML (CHARGE PER UNIT) SC SCH ×2 (06:05→13:03)
[2018-12-03] MEDS: DOXYCYCLINE 100 MG (VIBRAMYCIN) TABLET PO SCH (06:07)
[2018-12-03] MEDS: PANTOPRAZOLE 40 MG (PROTONIX) TAB PO SCH (06:07)
[2018-12-03] MEDS ORDERED: predniSONE 20 MG TAB PO SCH (07:00)
[2018-12-03 08:00] VITALS: BP 146/70
[2018-12-03] MEDS: MEMANTINE 10 MG (NAMENDA) TABLET PO SCH (09:13)
[2018-12-03] MEDS: amLODIPine 10 MG (NORVASC) TAB PO SCH (09:13)
[2018-12-03] MEDS: ASPIRIN 81 MG CHEW (CHILDREN'S ASA) PO SCH (09:13)
--- NOTE | 2018-12-03 10:50 | NUR ---
CM/SS [facility] would like to transfer this day at 2pm if able. Completed the CARE Assessment with the patient. It was sent to facility, [facility], and copy remained in chart.
[2018-12-03] MEDS ORDERED: IPRA3AMP31 INH (13:26)
[2018-12-03] MEDS ORDERED: ALPR0.254 PO (13:26)
[2018-12-03] MEDS ORDERED: PRD20T PO (13:26)
[2018-12-03] MEDS ORDERED: BUDE10.2 IH (13:27)
--- NOTE | 2018-12-03 13:30 | Discharge Inst-Skilled Nursing ---
Discharge Inst-Skilled NF Patient Instructions Patient Problems: COPD Worsening Dementia Hypertension Diabetes mellitus II Consult/Follow Up/Orders Follow Up Appt.: Fwup with me in 2 weeks Skilled NF Admit to: [facility] Certification (SNF) I certify that SNF services are required to be given on an inpatient basis because of the above named patient's need for alf care on a continuing basis for the conditions(s) for which he/she was receiving inpatient hospital services prior to his/her transfer to the SNF. Prison Facility Order: [facility] [employer] [facility]-Evaluate & Treat, Physical Therapy-Evaluate & Treat Discharge Diet: Low Sodium Diet Daily Activity as Tolerated: Yes New & Resume Previous Orders New & Resume Previous Orders Oxygen at 2L NC q HS Accuchecks daily BP check weekly Neelam Hinojosa Dec 03, 2018 13:28 NEELAM HINOJOSA DO Dec 03, 2018 13:30
--- NOTE | 2018-12-03 13:42 | NUR ---
CM/SS sent discharge information to [facility].
--- NOTE | 2018-12-03 13:52 | Discharge Summary ---
Diagnosis/Chief Complaint Date of Admission Nov 29, 2018 at 16:02 Date of Discharge Discharge Date: Dec 03, 2018 Discharge Diagnosis 1. Acute Respiratory Distress with Hypoxia--improved with treatment of COPD exac 2. COPD with Acute Exacerbation and Acute Lower Respiratory Tract Infection-- improved 3. Diabetes mellitus II with acute exacerbation due to steroids--improving as steroids have been decreased 4. Worsening Dementia with Anxiety--to NH for likely penitentiary placement but will start with SNF 5. GERD--stable 6. Adult Failure to Thrive--improved appetite during hospital stay with steroids but think part of her issues were forgetting to eat when at home and sleeping through meals Reason Hospital Visit This is a 78 year old female with known COPD and dementia who was brought to my office by her daughter due to worsening memory, worsening shortness of air and concerns about the patient not eating or taking proper care of herself. The patient had purse lip breathing on exam with conversational dyspnea and had oxygen desaturation to 87% with minimal exertion. She had also had a 7 pound weight loss since her last visit one month ago. The daughter also reported possible urinary incontinence as she has noticed wet spots on the floor and couch of the patient's house. We will directly admit the patient for treatment of her hypoxia and acute COPD exacerbation as well as further workup of her weight loss and worsening confusion. We will also get a drug abuse social worker consult to discuss penitentiary placement on discharge. Discharge Summary Hospital Course Hospital Course This is a 78 year old female with known COPD and dementia who was brought to my office by her daughter due to worsening memory, worsening shortness of air and concerns about the patient not eating or taking proper care of herself. The patient had purse lip breathing on exam with conversational dyspnea and had oxygen desaturation to 87% with minimal exertion. She had also had a 7 pound weight loss since her last visit one month ago. The daughter also reported possible urinary incontinence as she has noticed wet spots on the floor and couch of the patient's house. We will directly admit the patient for treatment of her hypoxia and acute COPD exacerbation as well as further workup of her weight loss and worsening confusion. We will also get a drug abuse social worker consult to discuss penitentiary placement on discharge. The patient was admitted to the medical floor and started on IV solumedrol, oxygen and SVNs with duoneb. She did require oxygen up to 3L NC during her first 24hrs of her hospital stay but by the end of her hospital stay she is down to 2L NC at bedtime. Her solumedrol has been weaned to prednisone with no worsening of her respiratory status. She did have blood sugars up to 300 which are down to the 100s with weaning of her steroids. Doxycycline as well as rocephin was added due to bibasilar crackles noted on her hospital day number 2 to cover for acute lower respiratory tract infection. Her appetite was good during her hospital stay with no GI complaints so it was felt that her weight loss was likely due to sleeping through meals at home and forgetting to eat or if she had eaten. adoption services manager was consulted for discharge planning and that patient has been accepted to [facility] for detention. I will see her in my office in 2 weeks. Labs Laboratory Tests 11/30/18 14:15: Urine Specific [place] 1.025H, Urine Protein 2+H, Urine Glucose (UA) 3+H, Urine Ketones 1+H, Urine Leukocyte Esterase 2+H, Urine Bacteria FEWH, Urine Mucus SMALLH 11/30/18 20:37: Glucometer 301H 11/30/18 23:43: Glucometer 199H 12/01/18 02:34: Glucometer 231H 12/01/18 06:00: Glucometer 206H 12/01/18 12:46: Glucometer 137H 12/01/18 17:09: Glucometer 252H 12/02/18 05:26: Glucometer 213H 12/02/18 11:25: Glucometer 146H 12/02/18 17:50: Glucometer 196H 12/02/18 20:29: Glucometer 188H 12/03/18 06:02: Glucometer 114H 12/03/18 11:32: Glucometer 190H Procedures None. Discharge Physical Examination Allergies: Coded Allergies: Penicillins (Verified Allergy, Severe, ANAPHYLAXIS, 01/14/18) Per Dr. Hinojosa patient has had Cephalosporins in the past without issue Vitals & I&Os Vital Signs Date Time Temp Pulse Resp B/P (MAP) Pulse Ox O2 Delivery O2 Flow Rate FiO2 12/03/18 09:34 95 Room Air 12/03/18 08:20 2.00 12/03/18 08:00 98.8 94 22 146/70 (95) General Appearance: Alert, Oriented X3, Cooperative Respiratory: Other (decreased aeration with wheezes) Cardiovascular: Regular Rate Psych/Mental Status: Other (confusion) Discharge Home Medications Reviewed and agree with Discharge Medication list on patient's Discharge Instruction sheet Instructions to Patient/Family Please see electronic discharge instructions given to patient. Clinical Quality Measures DVT/VTE Risk/Contraindication: Risk Factor Score Per Nursin RFS Level Per Nursing on Admit: 4+=Very High RIGOBERTO HINOJOSA DO Dec 03, 2018 13:52
--- NOTE | 2018-12-03 14:13 | NUR ---
AWAITING [facility] FOR DRAPERY INSPECTOR OF PT. REPORT CALLED TO LEEAN CRAIG AT [facility].
--- NOTE | 2018-12-03 14:14 | NUR ---
DC TO ME WITH ME PERSONNEL.
--- NOTE | 2018-12-06 13:51 | Physician Query Clarification ---
PQ-Further Specificity Admission/Discharge Admission Date: Nov 29, 2018 at 16:02 Discharge Date: Dec 03, 2018 at 14:15 The medical record reflects the following clinical scenario: History/Risk Factors: COPD exacerbation, Diabetes w/hyperglycemia due to steroids Clinical Findings: bibasilar crackles on day 2 Treatment: IV Rocephin and PO Doxycycline Question: Can you further specify acute lower respiratory infection per the clinical indicators above? Please document below. 1. acute bronchiolitis 2. acute bronchitis 3. Other, with explanation of the clinical findings. 4. Clinically undetermined, no explanation for the clinical findings. PHYSICIAN RESPONSE Can you specify per above: 2 In responding to this query, please exercise your independent professional judgment. The purpose of this communication is to more accurately reflect the complexity of your patients condition. The fact that a question is asked does not imply that any particular answer is desired or expected. Thank you for your timely response to this clarification. Requestors name: Rina THIS PHYSICIAN QUERY FORM IS A PERMANENT PART OF THE MEDICAL RECORD RINA CALVERT Dec 06, 2018 13:51 RIGOBERTO ROSAS DO Dec 07, 2018 18:38
== END 2018-12-03 14:15 | DRG 192 ==
LOC: ICU 16:02 → 4TH 11-30 07:47
PROVIDERS: ADMIT Family Medicine; ATTEND Family Medicine
DX: J44.1 Chronic obstructive pulmonary disease with (acute) exacerbation (principal); J44.0 Chronic obstructive pulmonary disease with (acute) lower respiratory infection; J20.9 Acute bronchitis, unspecified; R06.03 Acute respiratory distress; R09.02 Hypoxemia; R63.4 Abnormal weight loss; R62.7 Adult failure to thrive; F01.50 Vascular dementia, unspecified severity, without behavioral disturbance, psychotic disturbance, mood disturbance, and anxiety; R01.1 Cardiac murmur, unspecified; R32 Unspecified urinary incontinence; Z66 Do not resuscitate; F17.210 Nicotine dependence, cigarettes, uncomplicated; E11.65 Type 2 diabetes mellitus with hyperglycemia; T38.0X5A Adverse effect of glucocorticoids and synthetic analogues, initial encounter; F41.9 Anxiety disorder, unspecified; K21.9 Gastro-esophageal reflux disease without esophagitis
CPT/HCPCS: 36415; 71046; 80053; 81000; 82962; 85025; 94640; 94760; 94761

== ENCOUNTER 2019-04-06 14:46 | Emergency (ER) | payer MEDICARE, MEDICAID ==
[~2019-04-06] VITALS: Ht 157.5 cm; Wt 72.6 kg
[~2019-04-06 14:46] MED LIST changes: -ACHD5005 PO; -NITR-65 PO
--- OUTSIDE RECORDS SUMMARY | 2019-04-06 14:51 | XMS REPORT | Continuity of Care Document ---
Author Organization Unknown Address Unknown Allergies Active Description Code Type Severity Reaction Onset Reported/Identified Relationship to Patient Clinical Status Yes Penicillins [id number] Drug Allergy Severe ANAPHYLAXIS 01/14/2018 Medications There is no data. Problems Date [...] 06/15/2015 Ot 414.01 06/15/2015 Ot 424.0 06/15/2015 SALMA HINOJOSA DOLINE S Ot 256.39 06/15/2015 ANDREWNDUZMA DOFAIZARIGOBERTO S Ot 733.90 06/15/2015 FAIZA HINOJOSA DOQUELINE S Ot 781.91 06/15/2015 FAIZA HINOJOSA DOQUELINE S Ot V76.12 07/09/2015 FAIZA HINOJOSA DOQUELINE S Ot 433.10 07/09/2015 SALMA HINOJOSA DOLINE S Ot 433.30 07/26/2015 FAIZA HINOJOSA DOQUELINE S Ot 433.10 07/26/2015 ANDREWNDFAIZA GUSMAN DOQUELINE S Ot 433.30 11/24/2016 Ot 397.0 TRICUSPID VALVE DISEASE 11/24/2016 Ot 401.9 HYPERTENSION NOS 11/24/2016 Ot 414.01 CORONARY ATHEROSCLEROSIS OF [place] CORON 11/24/2016 Ot 424.0 MITRAL VALVE DISORDER 11/24/2016 RIGOBERTO HINOJOSA DO S Ot 256.39 OTHER OVARIAN FAILURE 11/24/2016 RIGOBERTO HINOJOSA DO S Ot 733.90 BONE CARTILAGE DIS NOS 11/24/2016 RIGOBERTO HINOJOSA DO S Ot 781.91 LOSS OF HEIGHT 11/24/2016 RIGOBERTO HINOJOSA DO S Ot V76.12 OTH SCREEN MAMMO-MALIGN NEOPLASM OF PERRY 11/24/2016 RIGOBERTO HINOJOSA DO S Ot 433.10 CAROTID ARTERY OCCLUSION W O CEREBRAL IN 11/24/2016 SALMA HINOJOSA DOLINE S Ot 433.30 MULT BILTRAL ARTERY OCCLUSION WO CEREBRA 11/27/2016 SALMA HINOJOSA DOLINE S Ot R01.1 CARDIAC MURMUR, UNSPECIFIED 11/27/2016 SALMA HINOJOSA DOLINE S Ot R01.1 CARDIAC MURMUR, UNSPECIFIED 12/02/2016 SALMA HINOJOSA DOLINE S Ot R01.1 CARDIAC MURMUR, UNSPECIFIED 12/18/2016 SALMA HINOJOSA DOLINE S Ot R01.1 CARDIAC MURMUR, UNSPECIFIED 01/06/2017 SALMA HINOJOSA DOLINE S Ot R01.1 CARDIAC MURMUR, UNSPECIFIED 01/13/2018 SALMA HINOJOSA DOLINE S Ot F17.210 NICOTINE DEPENDENCE, CIGARETTES, UNCOMPL 01/13/2018 SALMA HINOJOSA DOLINE S Ot J44.9 CHRONIC OBSTRUCTIVE PULMONARY DISEASE, U 01/13/2018 SALMA HINOJOSA DOLINE S Ot K92.0 HEMATEMESIS 01/13/2018 SALMA HINOJOSA DOLINE S Ot N39.0 URINARY TRACT INFECTION, SITE NOT SPECIF 01/13/2018 SALMA HINOJOSA DOLINE S Ot R07.2 PRECORDIAL PAIN 01/13/2018 SALMA HINOJOSA DOLINE S Ot R41.0 DISORIENTATION, UNSPECIFIED 01/13/2018 SALMA HINOJOSA DOLINE S Ot R41.3 OTHER AMNESIA 01/13/2018 SALMA HINOJOSA DOLINE S Ot R53.1 WEAKNESS 01/13/2018 SALMA HINOJOSA DOLINE S Ot R63.4 ABNORMAL WEIGHT LOSS 01/13/2018 SALMA HINOJOSA DOLINE S Ot F17.210 NICOTINE DEPENDENCE, CIGARETTES, UNCOMPL 01/13/2018 ORENDER DO, RIGOBERTO S Ot J44.9 CHRONIC OBSTRUCTIVE PULMONARY DISEASE, U 01/13/2018 ORENDER DO, RIGOBERTO S Ot K92.0 HEMATEMESIS 01/13/2018 ORENDER DO, RIGOBERTO S Ot N39.0 URINARY TRACT INFECTION, SITE NOT SPECIF 01/13/2018 ORENDER DO, RIGOBERTO S Ot R07.2 PRECORDIAL PAIN 01/13/2018 ORENDER DO, RIGOBERTO S Ot R41.0 DISORIENTATION, UNSPECIFIED 01/13/2018 ORENDER DO, RIGOBERTO S Ot R41.3 OTHER AMNESIA 01/13/2018 ORENDER DO, RIGOBERTO S Ot R53.1 WEAKNESS 01/13/2018 ORENDER DO, RIGOBERTO S Ot R63.4 ABNORMAL WEIGHT LOSS 01/13/2018 ORENDER DO, RIGOBERTO S Ot F17.210 NICOTINE DEPENDENCE, CIGARETTES, UNCOMPL 01/13/2018 ORENDER DO, RIGOBERTO S Ot J44.9 CHRONIC OBSTRUCTIVE PULMONARY DISEASE, U 01/13/2018 ORENDER DO, RIGOBERTO S Ot K92.0 HEMATEMESIS 01/13/2018 ORENDER DO, RIGOBERTO S Ot N39.0 URINARY TRACT INFECTION, SITE NOT SPECIF 01/13/2018 ORENDER DO, RIGOBERTO S Ot R07.2 PRECORDIAL PAIN 01/13/2018 ORENDER DO, RIGOBERTO S Ot R41.0 DISORIENTATION, UNSPECIFIED 01/13/2018 ORENDER DO, RIGOBERTO S Ot R41.3 OTHER AMNESIA 01/13/2018 ORENDER DO, RIGOBERTO S Ot R53.1 WEAKNESS 01/13/2018 ORENDER DO, RIGOBERTO S Ot R63.4 ABNORMAL WEIGHT LOSS 01/13/2018 ORENDER DO, RIGOBERTO S Ot F17.210 NICOTINE DEPENDENCE, CIGARETTES, UNCOMPL 01/13/2018 ORENDER DO, RIGOBERTO S Ot J44.9 CHRONIC OBSTRUCTIVE PULMONARY DISEASE, U 01/13/2018 ORENDER DO, RIGOBERTO S Ot K92.0 HEMATEMESIS 01/13/2018 ORENDER DO, RIGOBERTO S Ot N39.0 URINARY TRACT INFECTION, SITE NOT SPECIF 01/13/2018 ORENDER DO, RIGOBERTO S Ot R07.2 PRECORDIAL PAIN 01/13/2018 ORENDER DO, RIGOBERTO S Ot R41.0 DISORIENTATION, UNSPECIFIED 01/13/2018 ORENDER DO, RIGOBERTO S Ot R41.3 OTHER AMNESIA 01/13/2018 ORENDER DO, RIGOBERTO S Ot R53.1 WEAKNESS 01/13/2018 ORENDER DO, RIGOBERTO S Ot R63.4 ABNORMAL WEIGHT LOSS 01/13/2018 ORENDER DO, RIGOBERTO S Ot F17.210 NICOTINE DEPENDENCE, CIGARETTES, UNCOMPL 01/13/2018 ORENDER DO, RIGOBERTO S Ot J44.9 CHRONIC OBSTRUCTIVE PULMONARY DISEASE, U 01/13/2018 ORENDER DO, RIGOBERTO S Ot K92.0 HEMATEMESIS 01/13/2018 ORENDER DO, RIGOBERTO S Ot N39.0 URINARY TRACT INFECTION, SITE NOT SPECIF 01/13/2018 ORENDER DO, RIGOBERTO S Ot R07.2 PRECORDIAL PAIN 01/13/2018 ORENDER DO, RIGOBERTO S Ot R41.0 DISORIENTATION, UNSPECIFIED 01/13/2018 ORENDER DO, RIGOBERTO S Ot R41.3 OTHER AMNESIA 01/13/2018 ORENDER DO, RIGOBERTO S Ot R53.1 WEAKNESS 01/13/2018 ORENDER DO, RIGOBERTO S Ot R63.4 ABNORMAL WEIGHT LOSS 01/14/2018 ORENDER DO, RIGOBERTO S Ot F17.210 NICOTINE DEPENDENCE, CIGARETTES, UNCOMPL 01/14/2018 ORENDER DO, RIGOBERTO S Ot J44.9 CHRONIC OBSTRUCTIVE PULMONARY DISEASE, U 01/14/2018 ORENDER DO, RIGOBERTO S Ot K92.0 HEMATEMESIS 01/14/2018 ORENDER DO, RIGOBERTO S Ot N39.0 URINARY TRACT INFECTION, SITE NOT SPECIF 01/14/2018 ORENDER DO, RIGOBERTO S Ot R07.2 PRECORDIAL PAIN 01/14/2018 ORENDER DO, RIGOBERTO S Ot R41.0 DISORIENTATION, UNSPECIFIED 01/14/2018 ORENDER DO, RIGOBERTO S Ot R41.3 OTHER AMNESIA 01/14/2018 ORENDER DO, RIGOBERTO S Ot R53.1 WEAKNESS 01/14/2018 HARJITUZMA RIGOBERTO DELCID S Ot R63.4 ABNORMAL WEIGHT LOSS 01/14/2018 RIGOBERTO HINOJOSA DO S Ot D50.0 IRON DEFICIENCY ANEMIA SECONDARY TO BLOO 01/14/2018 RIGOBERTO HINOJOSA DO S Ot 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 01/14/2018 RIGOBERTO HINOJOSA DO S Ot F17.210 NICOTINE DEPENDENCE, CIGARETTES, UNCOMPL 01/14/2018 RIGOBERTO HINOJOSA DO S Ot 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 01/14/2018 HARJIT RIGOBERTO DELCID S Ot J44.9 CHRONIC OBSTRUCTIVE PULMONARY DISEASE, U 01/14/2018 RIGOBERTO HINOJOSA DO S Ot K22.8 OTHER SPECIFIED DISEASES OF ESOPHAGUS 01/14/2018 RIGOBERTO HINOJOSA DO S Ot K25.9 GASTRIC ULCER, UNSP ACUTE OR CHRONIC, 01/14/2018 RIGOBERTO HINOJOSA DO S Ot K92.0 HEMATEMESIS 01/14/2018 HARJIT RIGOBERTO DELCID S Ot N39.0 URINARY TRACT INFECTION, SITE NOT SPECIF 01/14/2018 RIGOBERTO HINOJOSA DO S Ot R07.2 PRECORDIAL PAIN 01/14/2018 RIGOBERTO HINOJOSA DO S Ot R07.89 OTHER CHEST PAIN 01/14/2018 RIGOBERTO HINOJOSA DO S Ot R41.0 DISORIENTATION, UNSPECIFIED 01/14/2018 RIGOBERTO HINOJOSA DO S Ot R41.3 OTHER AMNESIA 01/14/2018 RIGOBERTO HINOJOSA DO S Ot R53.1 WEAKNESS 01/14/2018 RIGOBERTO HINOJOSA DO S Ot R63.4 ABNORMAL WEIGHT LOSS 11/29/2018 RIGOBERTO HINOJOSA DO S Ot 256.39 OTHER OVARIAN FAILURE 11/29/2018 RIGOBERTO HINOJOSA DO S Ot 733.90 BONE CARTILAGE DIS NOS 11/29/2018 RIGOBERTO HINOJOSA DO S Ot 781.91 LOSS OF HEIGHT 11/29/2018 RIGOBERTO HINOJOSA DO S Ot V76.12 OTH SCREEN MAMMO-MALIGN NEOPLASM OF PERRY 11/29/2018 ORENDER DO, RIGOBERTO S Ot 433.10 CAROTID ARTERY OCCLUSION W O CEREBRAL IN 11/29/2018 ORENDER DO, RIGOBERTO S Ot 433.30 MULT BILTRAL ARTERY OCCLUSION WO CEREBRA 11/29/2018 ORENDER DO, RIGOBERTO S Ot R01.1 CARDIAC MURMUR, UNSPECIFIED 12/02/2018 ORENDER DO, RIGOBERTO S Ot 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 12/02/2018 ORENDER DO, RIGOBERTO S Ot F17.210 NICOTINE DEPENDENCE, CIGARETTES, UNCOMPL 12/02/2018 ORENDER DO, RIGOBERTO S Ot J44.1 CHRONIC OBSTRUCTIVE PULMONARY DISEASE W 12/02/2018 ORENDER DO, RIGOBERTO S Ot R01.1 CARDIAC MURMUR, UNSPECIFIED 12/02/2018 ORENDER DO, RIGOBERTO S Ot R06.03 ACUTE RESPIRATORY DISTRESS 12/02/2018 ORENDER DO, RIGOBERTO S Ot R09.02 HYPOXEMIA 12/02/2018 ORENDER DO, RIGOBERTO S Ot R32 UNSPECIFIED URINARY INCONTINENCE 12/02/2018 ORENDER DO, RIGOBERTO S Ot R62.7 ADULT FAILURE TO THRIVE 12/02/2018 ORENDER DO, RIGOBERTO S Ot R63.4 ABNORMAL WEIGHT LOSS 12/02/2018 ORENDER DO, RIGOBERTO S Ot Z66 DO NOT RESUSCITATE 12/02/2018 ORENDER DO, RIGOBERTO S Ot 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 12/02/2018 ORENDER DO, RIGOBERTO S Ot F17.210 NICOTINE DEPENDENCE, CIGARETTES, UNCOMPL 12/02/2018 ORENDER DO, RIGOBERTO S Ot J44.1 CHRONIC OBSTRUCTIVE PULMONARY DISEASE W 12/02/2018 ORENDER DO, RIGOBERTO S Ot R01.1 CARDIAC MURMUR, UNSPECIFIED 12/02/2018 ORENDER DO, RIGOBERTO S Ot R06.03 ACUTE RESPIRATORY DISTRESS 12/02/2018 ORENDER DO, RIGOBERTO S Ot R09.02 HYPOXEMIA 12/02/2018 ORENDER DO, RIGOBERTO S Ot R32 UNSPECIFIED URINARY INCONTINENCE 12/02/2018 ORENDER DO, RIGOBERTO S Ot R62.7 ADULT FAILURE TO THRIVE 12/02/2018 ORENDER DO, RIGOBERTO S Ot R63.4 ABNORMAL WEIGHT LOSS 12/02/2018 ORENDER DO, RIGOBERTO S Ot Z66 DO NOT RESUSCITATE 12/03/2018 ORENDER DO, RIGOBERTO S Ot 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 12/03/2018 ORENDER DO, RIGOBERTO S Ot F17.210 NICOTINE DEPENDENCE, CIGARETTES, UNCOMPL 12/03/2018 ORENDER DO, RIGOBERTO S Ot J44.1 CHRONIC OBSTRUCTIVE PULMONARY DISEASE W 12/03/2018 ORENDER DO, RIGOBERTO S Ot R01.1 CARDIAC MURMUR, UNSPECIFIED 12/03/2018 ORENDER DO, RIGOBERTO S Ot R06.03 ACUTE RESPIRATORY DISTRESS 12/03/2018 ORENDER DO, RIGOBERTO S Ot R09.02 HYPOXEMIA 12/03/2018 ANDREWNDER DORIGOBERTO S Ot R32 UNSPECIFIED URINARY INCONTINENCE 12/03/2018 ANDREWNDER DORIGOBERTO S Ot R62.7 ADULT FAILURE TO THRIVE 12/03/2018 ANDREWNDER DORIGOBERTO S Ot R63.4 ABNORMAL WEIGHT LOSS 12/03/2018 ORENDER DO, RIGOBERTO S Ot Z66 DO NOT RESUSCITATE 12/03/2018 ANDREWNDER DO, RIGOBERTO S Ot E11.65 TYPE 2 DIABETES MELLITUS WITH HYPERGLYCE 12/03/2018 ANDREWNDER DOSALMARIGOBERTO S Ot 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 12/03/2018 ANDREWNDER DO, RIGOBERTO S Ot F17.210 NICOTINE DEPENDENCE, CIGARETTES, UNCOMPL 12/03/2018 ANDREWNDER DORIGOBERTO S Ot F41.9 ANXIETY DISORDER, UNSPECIFIED 12/03/2018 ORENDER DORIGOBERTO S Ot J20.9 ACUTE BRONCHITIS, UNSPECIFIED 12/03/2018 ORENDER DOSALMARIGOBERTO S Ot J22 UNSPECIFIED ACUTE LOWER RESPIRATORY INFE 12/03/2018 ANDREWNDER DORIGOBERTO S Ot J44.0 CHRONIC OBSTRUCTIVE PULMON DISEASE W ACU 12/03/2018 ANDREWNDER DORIGOBERTO S Ot J44.1 CHRONIC OBSTRUCTIVE PULMONARY DISEASE W 12/03/2018 ORENDER DO, RIGOBERTO S Ot K21.9 GASTRO-ESOPHAGEAL REFLUX DISEASE WITHOUT 12/03/2018 ORENDER DORIGOBERTO S Ot R01.1 CARDIAC MURMUR, UNSPECIFIED 12/03/2018 RIGOBERTO HINOJOSA DO Ot R06.03 ACUTE RESPIRATORY DISTRESS 12/03/2018 RIGOBERTO HINOJOSA DO Ot R09.02 HYPOXEMIA 12/03/2018 RIGOBERTO HINOJOSA DO Ot R32 UNSPECIFIED URINARY INCONTINENCE 12/03/2018 RIGOBERTO HINOJOSA DO Ot R62.7 ADULT FAILURE TO THRIVE 12/03/2018 RIGOBERTO HINOJOSA DO Ot R63.4 ABNORMAL WEIGHT LOSS 12/03/2018 RIGOBERTO HINOJOSA DO Ot T38.0X5A ADVERSE EFFECT OF GLUCOCORT/SYNTH ANALOG 12/03/2018 RIGOBERTO HINOJOSA DO Ot Z66 DO NOT RESUSCITATE Procedures Code Description Performed By Performed On [id number] EXCISION OF STOMACH, ENDO, DIAGN 01/14/2018 Results Test Result Range Complete blood count (CBC) with automated white blood cell (WBC) differential - 01/12/18 12:50 Blood leukocytes automated count (number/volume) 8.2 10*3/uL 4.3-11.0 Blood erythrocytes automated count (number/volume) 4.15 10*6/uL 4.35-5.85 Venous blood hemoglobin measurement (mass/volume) 12.3 g/dL 11.5-16.0 Blood hematocrit (volume fraction) 36 % 35-52 Automated erythrocyte mean corpuscular volume 88 [foz_us] 80-99 Automated erythrocyte mean corpuscular hemoglobin (mass per erythrocyte) 30 pg 25-34 Automated erythrocyte mean corpuscular hemoglobin concentration measurement (mass/volume) 34 g/dL 32-36 Automated erythrocyte distribution width ratio 13.9 % 10.0- 14.5 Automated blood platelet count (count/volume) 340 10*3/uL 130-400 Automated blood platelet mean volume measurement 10.7 [foz_us] 7.4-10.4 Automated blood neutrophils/100 leukocytes 76 % 42-75 Automated blood lymphocytes/100 leukocytes 12 % 12-44 Blood monocytes/100 leukocytes 9 % 0-12 Automated blood eosinophils/100 leukocytes 3 % 0-10 Automated blood basophils/100 leukocytes 0 % 0-10 Blood neutrophils automated count (number/volume) 6.2 10*3 1.8-7.8 Blood lymphocytes automated count (number/volume) 1.0 10*3 1.0-4.0 Blood monocytes automated count (number/volume) 0.8 10*3 0.0- 1.0 Automated eosinophil count 0.3 10*3/uL 0.0-0.3 Automated blood basophil count (count/volume) 0.0 10*3/uL 0.0-0.1 Comprehensive metabolic panel - 01/12/18 12:50 Serum or plasma sodium measurement (moles/volume) 140 mmol/L 135-145 Serum or plasma potassium measurement (moles/volume) 3.9 mmol/L 3.6-5.0 Serum or plasma chloride measurement (moles/volume) 105 mmol/L 98-107 Carbon dioxide 25 mmol/L 21-32 Serum or plasma anion gap determination (moles/volume) 10 mmol/L 5-14 Serum or plasma urea nitrogen measurement (mass/volume) 13 mg/dL 7-18 Serum or plasma creatinine measurement (mass/volume) 0.74 mg/dL 0.60-1.30 Serum or plasma urea nitrogen/creatinine mass ratio 18 NRG Serum or plasma creatinine measurement with calculation of estimated glomerular filtration rate > NRG Serum or plasma glucose measurement (mass/volume) 117 mg/dL 70-105 Serum or plasma calcium measurement (mass/volume) 10.0 mg/dL 8.5-10.1 Serum or plasma total bilirubin measurement (mass/volume) 0.6 mg/dL 0.1-1.0 Serum or plasma alkaline phosphatase measurement (enzymatic activity/volume) 81 U/L 40-136 Serum or plasma aspartate aminotransferase measurement (enzymatic activity/volume) 13 U/L 5-34 Serum or plasma alanine aminotransferase measurement (enzymatic activity/volume) 7 U/L 0-55 Serum or plasma protein measurement (mass/volume) 6.5 g/dL 6.4-8.2 Serum or plasma albumin measurement (mass/volume) 3.8 g/dL 3.2-4.5 Serum or plasma troponin i.cardiac measurement (mass/volume) - 01/12/18 12:50 Serum or plasma troponin i.cardiac measurement (mass/volume) < ng/mL <0.30 Serum or plasma amylase measurement (enzymatic activity/volume) - 01/12/18 12:50 Serum or plasma amylase measurement (enzymatic activity/volume) 25 U/L 25-125 Lipase - 01/12/18 12:50 Lipase 14 U/L 8-78 THYROID STIMULATING HORMONE - 01/12/18 12:50 THYROID STIMULATING HORMONE 1.19 u[iU]/mL 0.35-4.94 Complete urinalysis with reflex to culture - 01/12/18 15:50 Urine color determination YELLOW NRG Urine clarity determination CLEAR NRG Urine pH measurement by test strip 6 5-9 Specific gravity of urine by test strip 1.020 1.016-1.022 Urine protein assay by test strip, semi-quantitative NEGATIVE NEGATIVE Urine glucose detection by automated test strip NEGATIVE NEGATIVE Erythrocytes detection in urine sediment by light microscopy NEGATIVE NEGATIVE Urine ketones detection by automated test strip NEGATIVE NEGATIVE Urine nitrite detection by test strip NEGATIVE NEGATIVE Urine total bilirubin detection by test strip NEGATIVE NEGATIVE Urine urobilinogen measurement by automated test strip (mass/volume) 4 mg/dL NORMAL Urine leukocyte esterase detection by dipstick 3+ NEGATIVE Automated urine sediment erythrocyte count by microscopy (number/high power field) NONE NRG Automated urine sediment leukocyte count by microscopy (number/high power field) [HPF] NRG Bacteria detection in urine sediment by light microscopy MODERATE NRG Squamous epithelial cells detection in urine sediment by light microscopy >50 NRG Crystals detection in urine sediment by light microscopy NONE NRG Casts detection in urine sediment by light microscopy NONE NRG Mucus detection in urine sediment by light microscopy NEGATIVE NRG Complete urinalysis with reflex to culture YES NRG Bacterial urine culture - 01/12/18 15:50 URINE CULTURE RESULTS <10,000/ML NRG Serum or plasma troponin i.cardiac measurement (mass/volume) - 01/12/18 18:47 Serum or plasma troponin i.cardiac measurement (mass/volume) < ng/mL <0.30 Complete blood count (CBC) with automated white blood cell (WBC) differential - 01/13/18 05:40 Blood leukocytes automated count (number/volume) 6.1 10*3/uL 4.3-11.0 Blood erythrocytes automated count (number/volume) 3.86 10*6/uL 4.35-5.85 Venous blood hemoglobin measurement (mass/volume) 11.3 g/dL 11.5-16.0 Blood hematocrit (volume fraction) 34 % 35-52 Automated erythrocyte mean corpuscular volume 88 [foz_us] 80-99 Automated erythrocyte mean corpuscular hemoglobin (mass per erythrocyte) 29 pg 25-34 Automated erythrocyte mean corpuscular hemoglobin concentration measurement (mass/volume) 33 g/dL 32-36 Automated erythrocyte distribution width ratio 13.7 % 10.0- 14.5 Automated blood platelet count (count/volume) 309 10*3/uL 130-400 Automated blood platelet mean volume measurement 10.8 [foz_us] 7.4-10.4 Automated blood neutrophils/100 leukocytes 59 % 42-75 Automated blood lymphocytes/100 leukocytes 21 % 12-44 Blood monocytes/100 leukocytes 15 % 0-12 Automated blood eosinophils/100 leukocytes 5 % 0-10 Automated blood basophils/100 leukocytes 0 % 0-10 Blood neutrophils automated count (number/volume) 3.6 10*3 1.8-7.8 Blood lymphocytes automated count (number/volume) 1.3 10*3 1.0-4.0 Blood monocytes automated count (number/volume) 0.9 10*3 0.0- 1.0 Automated eosinophil count 0.3 10*3/uL 0.0-0.3 Automated blood basophil count (count/volume) 0.0 10*3/uL 0.0-0.1 Whole blood basic metabolic panel - 01/13/18 05:46 Serum or plasma sodium measurement (moles/volume) 140 mmol/L 135-145 Serum or plasma potassium measurement (moles/volume) 3.9 mmol/L 3.6-5.0 Serum or plasma chloride measurement (moles/volume) 108 mmol/L 98-107 Carbon dioxide 24 mmol/L 21-32 Serum or plasma anion gap determination (moles/volume) 8 mmol/L 5-14 Serum or plasma urea nitrogen measurement (mass/volume) 9 mg/dL 7-18 Serum or plasma creatinine measurement (mass/volume) 0.72 mg/dL 0.60-1.30 Serum or plasma urea nitrogen/creatinine mass ratio 13 NRG Serum or plasma creatinine measurement with calculation of estimated glomerular filtration rate > NRG Serum or plasma glucose measurement (mass/volume) 102 mg/dL 70-105 Serum or plasma calcium measurement (mass/volume) 9.0 mg/dL 8.5-10.1 Stool occult blood screen - 01/13/18 10:30 Stool gastrointestinal hemoglobin detection NEGATIVE NEGATIVE Complete blood count (CBC) with automated white blood cell (WBC) differential - 01/14/18 06:05 Blood leukocytes automated count (number/volume) 5.2 10*3/uL 4.3-11.0 Blood erythrocytes automated count (number/volume) 3.57 10*6/uL 4.35-5.85 Venous blood hemoglobin measurement (mass/volume) 10.5 g/dL 11.5-16.0 Blood hematocrit (volume fraction) 32 % 35-52 Automated erythrocyte mean corpuscular volume 89 [foz_us] 80-99 Automated erythrocyte mean corpuscular hemoglobin (mass per erythrocyte) 29 pg 25-34 Automated erythrocyte mean corpuscular hemoglobin concentration measurement (mass/volume) 33 g/dL 32-36 Automated erythrocyte distribution width ratio 13.7 % 10.0- 14.5 Automated blood platelet count (count/volume) 254 10*3/uL 130-400 Automated blood platelet mean volume measurement 10.8 [foz_us] 7.4-10.4 Automated blood neutrophils/100 leukocytes 59 % 42-75 Automated blood lymphocytes/100 leukocytes 22 % 12-44 Blood monocytes/100 leukocytes 15 % 0-12 Automated blood eosinophils/100 leukocytes 4 % 0-10 Automated blood basophils/100 leukocytes 0 % 0-10 Blood neutrophils automated count (number/volume) 3.1 10*3 1.8-7.8 Blood lymphocytes automated count (number/volume) 1.1 10*3 1.0-4.0 Blood monocytes automated count (number/volume) 0.8 10*3 0.0- 1.0 Automated eosinophil count 0.2 10*3/uL 0.0-0.3 Automated blood basophil count (count/volume) 0.0 10*3/uL 0.0-0.1 Complete blood count (CBC) with automated white blood cell (WBC) differential - 11/29/18 16:19 Blood leukocytes automated count (number/volume) 8.6 10*3/uL 4.3-11.0 Blood erythrocytes automated count (number/volume) 4.69 10*6/uL 4.35-5.85 Venous blood hemoglobin measurement (mass/volume) 13.1 g/dL 11.5-16.0 Blood hematocrit (volume fraction) 41 % 35-52 Automated erythrocyte mean corpuscular volume 87 [foz_us] 80-99 Automated erythrocyte mean corpuscular hemoglobin (mass per erythrocyte) 28 pg 25-34 Automated erythrocyte mean corpuscular hemoglobin concentration measurement (mass/volume) 32 g/dL 32-36 Automated erythrocyte distribution width ratio 14.7 % 10.0- 14.5 Automated blood platelet count (count/volume) 362 10*3/uL 130-400 Automated blood platelet mean volume measurement 10.1 [foz_us] 7.4-10.4 Automated blood neutrophils/100 leukocytes 63 % 42-75 Automated blood lymphocytes/100 leukocytes 18 % 12-44 Blood monocytes/100 leukocytes 15 % 0-12 Automated blood eosinophils/100 leukocytes 3 % 0-10 Automated blood basophils/100 leukocytes 0 % 0-10 Blood neutrophils automated count (number/volume) 5.5 10*3 1.8-7.8 Blood lymphocytes automated count (number/volume) 1.6 10*3 1.0-4.0 Blood monocytes automated count (number/volume) 1.3 10*3 0.0- 1.0 Automated eosinophil count 0.3 10*3/uL 0.0-0.3 Automated blood basophil count (count/volume) 0.0 10*3/uL 0.0-0.1 Comprehensive metabolic panel - 11/29/18 16:19 Serum or plasma sodium measurement (moles/volume) 138 mmol/L 135-145 Serum or plasma potassium measurement (moles/volume) 4.3 mmol/L 3.6-5.0 Serum or plasma chloride measurement (moles/volume) 103 mmol/L 98-107 Carbon dioxide 25 mmol/L 21-32 Serum or plasma anion gap determination (moles/volume) 10 mmol/L 5-14 Serum or plasma urea nitrogen measurement (mass/volume) 18 mg/dL 7-18 Serum or plasma creatinine measurement (mass/volume) 0.90 mg/dL 0.60-1.30 Serum or plasma urea nitrogen/creatinine mass ratio 20 NRG Serum or plasma creatinine measurement with calculation of estimated glomerular filtration rate > NRG Serum or plasma glucose measurement (mass/volume) 83 mg/dL 70-105 Serum or plasma calcium measurement (mass/volume) 9.7 mg/dL 8.5-10.1 Serum or plasma total bilirubin measurement (mass/volume) 0.7 mg/dL 0.1-1.0 Serum or plasma alkaline phosphatase measurement (enzymatic activity/volume) 88 U/L 40-136 Serum or plasma aspartate aminotransferase measurement (enzymatic activity/volume) 11 U/L 5-34 Serum or plasma alanine aminotransferase measurement (enzymatic activity/volume) 6 U/L 0-55 Serum or plasma protein measurement (mass/volume) 7.3 g/dL 6.4-8.2 Serum or plasma albumin measurement (mass/volume) 4.3 g/dL 3.2-4.5 CALCIUM CORRECTED 9.5 mg/dL 8.5-10.1 Complete urinalysis with reflex to culture - 11/30/18 14:15 Urine color determination YELLOW NRG Urine clarity determination SLIGHTLY CLOUDY NRG Urine pH measurement by test strip 5 5-9 Specific gravity of urine by test strip 1.025 1.016-1.022 Urine protein assay by test strip, semi-quantitative 2+ NEGATIVE Urine glucose detection by automated test strip 3+ NEGATIVE Erythrocytes detection in urine sediment by light microscopy NEGATIVE NEGATIVE Urine ketones detection by automated test strip 1+ NEGATIVE Urine nitrite detection by test strip NEGATIVE NEGATIVE Urine total bilirubin detection by test strip NEGATIVE NEGATIVE Urine urobilinogen measurement by automated test strip (mass/volume) NORMAL NORMAL Urine leukocyte esterase detection by dipstick 2+ NEGATIVE Automated urine sediment erythrocyte count by microscopy (number/high power field) NONE NRG Automated urine sediment leukocyte count by microscopy (number/high power field) [HPF] NRG Bacteria detection in urine sediment by light microscopy FEW NRG Squamous epithelial cells detection in urine sediment by light microscopy 2-5 NRG Crystals detection in urine sediment by light microscopy NONE NRG Casts detection in urine sediment by light microscopy NONE NRG Mucus detection in urine sediment by light microscopy SMALL NRG Complete urinalysis with reflex to culture NO NRG Capillary blood glucose measurement by glucometer (mass/volume) - 11/30/18 20:37 Capillary blood glucose measurement by glucometer (mass/volume) 301 mg/dL 70-110 Capillary blood glucose measurement by glucometer (mass/volume) - 11/30/18 23:43 Capillary blood glucose measurement by glucometer (mass/volume) 199 mg/dL 70-110 Capillary blood glucose measurement by glucometer (mass/volume) - 12/01/18 02:34 Capillary blood glucose measurement by glucometer (mass/volume) 231 mg/dL 70-110 Capillary blood glucose measurement by glucometer (mass/volume) - 12/01/18 06:00 Capillary blood glucose measurement by glucometer (mass/volume) 206 mg/dL 70-110 Capillary blood glucose measurement by glucometer (mass/volume) - 12/01/18 12:46 Capillary blood glucose measurement by glucometer (mass/volume) 137 mg/dL 70-110 Capillary blood glucose measurement by glucometer (mass/volume) - 12/01/18 17:09 Capillary blood glucose measurement by glucometer (mass/volume) 252 mg/dL 70-110 Capillary blood glucose measurement by glucometer (mass/volume) - 12/02/18 05:26 Capillary blood glucose measurement by glucometer (mass/volume) 213 mg/dL 70-110 Capillary blood glucose measurement by glucometer (mass/volume) - 12/02/18 11:25 Capillary blood glucose measurement by glucometer (mass/volume) 146 mg/dL 70-110 Capillary blood glucose measurement by glucometer (mass/volume) - 12/02/18 17:50 Capillary blood glucose measurement by glucometer (mass/volume) 196 mg/dL 70-110 Capillary blood glucose measurement by glucometer (mass/volume) - 12/02/18 20:29 Capillary blood glucose measurement by glucometer (mass/volume) 188 mg/dL 70-110 Capillary blood glucose measurement by glucometer (mass/volume) - 12/03/18 06:02 Capillary blood glucose measurement by glucometer (mass/volume) 114 mg/dL 70-110 Capillary blood glucose measurement by glucometer (mass/volume) - 12/03/18 11:32 Capillary blood glucose measurement by glucometer (mass/volume) 190 mg/dL 70-110 Encounters ACCT No. Visit Date/Time Discharge Status Pt. Type Provider Facility Loc./Unit Complaint 04/201803/24/2019 13:51:49 03/24/2019 23:59:59 CLS Outpatient Rigoberto Hinojosa. [id number] 11/29/2018 16:02:00 12/03/2018 14:15:00 DIS Inpatient FAIZA HINOJOSA DOQUELINE S [facility] 4TH HYPOXIA AND EXACERBATION OF COPD [id number] 01/12/2018 11:05:00 01/14/2018 18:35:00 DIS Inpatient FAIZA HINOJOSA DOQUELINE S [facility] 4TH HEMATEMESIS [id number] 10/08/2017 15:06:00 10/08/2017 23:59:59 CLS Preadmit FAIZA HINOJOSA DOQUELINE S [facility] RAD LUNG CANCER SCREENING [id number] 11/26/2016 11:42:00 11/26/2016 23:59:59 CLS Outpatient SALMA HINOJOSA DOLINE S [facility] CARD CARDIAC MURMUR [id number] 06/15/2015 09:05:00 06/15/2015 23:59:59 CLS Outpatient SALMA HINOJOSA DOLINE S [facility] RAD CAROTID ARTERY STENOSIS [id number] 05/11/2014 08:53:00 05/11/2014 23:59:59 CLS Outpatient RIGOBERTO HINOJOSA DO S [facility] RAD SCREENING,OSTEOPENIA [id number] 04/06/2019 13:45:00 RO MARIE MD, CHASE Samuels [facility] RAD RT RENAL STONE. [id number] 03/02/2013 09:35:00 Document Registration [id number] 06/19/2011 11:35:00 Document Registration [id number] 09/13/2010 07:58:00 Document Registration [id number] 07/08/2010 10:43:00 Document Registration [id number] 03/22/2010 09:40:00 Document Registration
[2019-04-06 17:10] VITALS: BP 136/67
--- NOTE | 2019-04-06 17:11 | NUR ---
NICHELLE PCT WENT TO WAITING ROOM TO CHECK ON PT, TAKE VITALS, AND NOTIFIED THEM OF BUSY ER BUT SEVERAL ARE TO LEAVE. DENIES NEEDS AT THIS TIME.
[2019-04-06 17:30] VITALS: BP 142/75
--- NOTE | 2019-04-06 17:30 | NUR ---
PT AMBULATED BACK TO ROOM ET STATES SHE HAS SAT OUT THERE SO LONG SHE IS NO LONGER IN PAIN. I APOLOGISED FOR THE LONG WAIT ET NOTIFIED OF CRITICAL PT'S WITH MULTIPLE TRANSFERS. 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
[2019-04-06 17:39] LABS: BASOPHILS % (AUTO) 0 % (0-10); EOSINOPHILS # (AUTO) 0.2 10^3/uL (0.0-0.3); EOSINOPHILS % (AUTO) 2 % (0-10); HEMATOCRIT 39 % (35-52); HEMOGLOBIN 12.8 G/DL (11.5-16.0); LYMPHOCYTES # (AUTO) 1.3 X 10^3 (1.0-4.0); LYMPHOCYTES % (AUTO) 14 % (12-44); MEAN CORPUSCULAR HEMOGLOBIN 29 PG (25-34); MEAN CORPUSCULAR HGB CONC 33 G/DL (32-36); MEAN CORPUSCULAR VOLUME 87 FL (80-99); MEAN PLATELET VOLUME 10.8 FL (7.4-10.4); MONOCYTES # (AUTO) 0.9 X 10^3 (0.0-1.0); MONOCYTES % (AUTO) 10 % (0-12); NEUTROPHILS # (AUTO) 6.9 X 10^3 (1.8-7.8); NEUTROPHILS % (AUTO) 74 % (42-75); PLATELET COUNT 316 10^3/uL (130-400); RED CELL DISTRIBUTION WIDTH 15.7 % (10.0-14.5); WHITE BLOOD COUNT 9.3 10^3/uL (4.3-11.0)
[2019-04-06] MEDS ORDERED: fentaNYL INJECTION 100 MCG/2 ML AMP IVP ONE (17:45)
--- NOTE | 2019-04-06 17:56 | ED GU-Female ---
General Chief Complaint: - Urinary Stated Complaint: KIDNEY STONE Nursing Triage Note: PATIENT STATES THAT SHE HAS A CONFIRMED KIDNEY STONE ON XRAY. SHE IS HAVING INCREASED PAIN AND IS HAVING BACK SPASMS. TRAMADOL AND TYLENOL ARE NOT HELPING THE PAIN. Nursing Sepsis Screen: No Definite Risk Source: patient Exam Limitations: no limitations History of Present Illness Date Seen by Provider: April 06, 2019 Time Seen by Provider: 17:45 Initial Comments 78-year-old female who presents to the emergency room with complaints of right- sided flank pain and back spasms. She had x-ray and a CT of her abdomen and pelvis today to confirm a suspected kidney stone that was ordered by Dr. Martin. She was prescribed tramadol and Tylenol but they are not helping with the pain. She denies nausea and vomiting. Timing/Duration: this afternoon Radiation: right flank Associated Symptoms: denies symptoms Allergies and Home Medications Allergies Coded Allergies: Penicillins (Verified Allergy, Severe, ANAPHYLAXIS, 01/14/18) Per Dr. Hinojosa patient has had Cephalosporins in the past without issue Home Medications Alprazolam 0.25 Mg Tablet, 0.25 MG PO HS PRN for ANXIETY Prescribed by: RIGOBERTO HINOJOSA on 12/03/18 1326 Amlodipine Besylate 10 Mg Tablet, 10 MG PO DAILY, (Reported) Aspirin 81 Mg Tablet.dr, 81 MG PO DAILY, (Reported) Atorvastatin Calcium 40 Mg Tablet, 40 MG PO HS, (Reported) Budesonide/Formoterol Fumarate 10.2 Gm Hfa.aer.ad, 2 PUFF IH BID Prescribed by: RIGOBERTO HINOJOSA on 12/03/18 1327 Donepezil HCl 10 Mg Tablet, 10 MG PO HS, (Reported) Escitalopram Oxalate 20 Mg Tablet, 20 MG PO DAILY, (Reported) Hydrocodone Bit/Acetaminophen 1 Tab Tab, 1 EACH PO Q4-6HR PRN for PAIN-MODERATE Prescribed by: SLY RAPHAEL on 04/06/192017 Ipratropium/Albuterol Sulfate 3 Ml Ampul.neb, 3 ML INH QID Prescribed by: RIGOBERTO HINOJOSA on 12/03/18 1326 Memantine HCl 10 Mg Tablet, 10 MG PO BID, (Reported) Nitrofurantoin Monohyd/M-Cryst 100 Mg Capsule, 1 TAB PO BID Prescribed by: SLY RAPHAEL on 04/06/192017 Pantoprazole Sodium 20 Mg Tablet., 20 MG PO DAILY, (Reported) Patient Home Medication List Home Medication List Reviewed: Yes Review of Systems Review of Systems Constitutional: see HPI; No chills, No fever Genitourinary: see HPI, other (kidney stone) All Other Systemes Reviewed Negative Unless Noted: Yes Past Hlfshea-Lnsqut-Gjicat Hx Past Med/Social Hx: Reviewed Nursing Past Med/Soc Hx Patient Social History Alcohol Use: Denies Use Number of Drinks Today: Alcohol Beverage of Choice: Wine Recreational Drug Use: No Smoking Status: Former Smoker Type Used: Cigarettes 2nd Hand Smoke Exposure: No Recent Foreign Travel: No Contact w/Someone Who Travel: No Recent Infectious Disease Expo: No Recent Hopitalizations: Yes (ASTHMA ATTACK-2004) Immunizations Up To Date Date of Pneumonia Vaccine: Sep 09, 2016 Date of Influenza Vaccine: Aug 09, 2018 Seasonal Allergies Seasonal Allergies: No Past Medical History Surgeries: No Respiratory: Yes (COPD) COPD Currently Using CPAP: No Currently Using BIPAP: No Cardiac: Yes Neurological: No Reproductive Disorders: Yes Genitourinary: Yes Kidney Stones Gastrointestinal: No Musculoskeletal: No Endocrine: No HEENT: Yes Hearing Impairment: Hard of Hearing Cancer: No Psychosocial: No Integumentary: No Blood Disorders: No Family Medical History Reviewed Nursing Family Hx Physical Exam Vital Signs Vital Signs - First Documented 04/06/19 04/06/19 15:04 17:10 Temp 97.9 Pulse 81 Resp 18 B/P (MAP) 145/67 (93) Pulse Ox 95 O2 Delivery Room Air Capillary Refill : Less Than 3 Seconds Height, Weight, BMI Height: 5'2.00" Weight: 160lbs. 0oz. 72.796476ri; 27.2 BMI Method:Stated General Appearance: WD/WN, no apparent distress Cardiovascular: normal peripheral pulses, regular rate, rhythm, no edema, no gallop, no JVD, no murmur Respiratory: chest non-tender, lungs clear, normal breath sounds, no respiratory distress, no accessory muscle use, respiratory distress Gastrointestinal: normal bowel sounds, non tender, soft, no organomegaly, no pulsatile mass Back: normal inspection, no CVA tenderness, no vertebral tenderness, CVA tenderness (R), CVA tenderness (L) Extremities: normal capillary refill Neurologic/Psychiatric: alert, normal mood/affect, oriented x 3 Skin: normal color, warm/dry Progress/Results/Core Measures Suspected Sepsis Recent Fever Within 48 Hours: No Infection Criteria Present: Suspected New Infection New/Unexplained Altered Menta: No Sepsis Screen: No Definite Risk SIRS Temperature:97.9 Pulse: 70 Respiratory Rate: 16 Laboratory Tests 04/06/19 17:31: White Blood Count 9.3 Blood Pressure 142 /75 Mean: 97 Laboratory Tests 04/06/19 17:31: Creatinine 0.92, Platelet Count 316, Total Bilirubin 0.3 Results/Orders Lab Results My Orders Orders - SLY RAPHAEL Iv [employer] Instructor Ed (04/06/19 ) Medications Given in ED Vital Signs/I&O Capillary Refill : Less Than 3 Seconds Blood Pressure Mean: 97 Progress Note : Time: 20:17 Progress Note I have seen and evaluated the patient. I've informed her of her laboratory findings. She is pain-free at this time. She agrees with plan of care, plans for discharge, return precautions were given. Diagnostic Imaging Diagonstic Imaging: CT Plain Films/CT/US/NM/MRI: abdomen, pelvis Comments NAME: ADAN ALAS [facility] REC#: [id number] PT STATUS: REG CLI : 1940 PHYSICIAN: CHASE FRITZ MD ADMIT DATE: 04/06/19/RAD Signed Date of Exam: 04/06/19 CT ABDOMEN/PELVIS WO PROCEDURE: CT abdomen and pelvis without contrast. TECHNIQUE: Multiple contiguous axial images were obtained through the abdomen and pelvis without the use of intravenous contrast. Auto Exposure Controls were utilized during the CT exam to meet ALARA standards for radiation dose reduction. INDICATION: Right-sided renal stone and right-sided pain. COMPARISON: Correlation is made with prior CT from 06/19/2011. FINDINGS: Imaging through the lung bases demonstrates a large hiatal hernia. There is some minimal scarring in the left lower lobe and right lower lobe. No focal liver mass is detected. Gallbladder is unremarkable. No biliary duct dilatation is seen. The pancreas and spleen are unremarkable. No adrenal mass is detected. The right kidney does contain a tiny nonobstructing calculus in the upper pole. No left-sided renal calculi are seen. There may be hyperdense lesion in the lower pole of the right kidney measuring 8 mm. This is too small to characterize but could represent a hemorrhagic cyst. Aorta is heavily calcified but nonaneurysmal. Small and large bowel loops are normal caliber. There is no obstruction. There is diverticulosis of the sigmoid colon but no evidence of acute diverticulitis. Appendix is unremarkable in the right lower quadrant. There is no ascites. Bladder is decompressed. The uterus appears to be surgically absent. IMPRESSION: 1. Large hiatal hernia. 2. Tiny nonobstructing right upper pole renal calculus. No hydronephrosis or ureteral calculi are identified. 3. Uncomplicated sigmoid diverticulosis. Dictated by: Dictated on workstation # [id number] Dict: 04/06/19 1422 Trans: 04/06/19 1502 Interpreted by: RYAN ROSARIO MD Electronically signed by: RYAN ROSARIO MD 04/06/19 1502 Reviewed: Reviewed by Me Departure Impression Primary Impression: Urinary tract infection Additional Impression: Kidney stone Disposition: 01 HOME, SELF-CARE Condition: Stable/Unchanged Departure-Patient Inst. Decision time for Depature: 20:17 Referrals: RIGOBERTO HINOJOSA DO (PCP/Family) Primary Care Physician Patient Instructions: Kidney Stones in Adults, Urinary Tract Infection, Adult (DC) Add. Discharge Instructions: Take medication as directed. Follow-up with primary care provider within 1 week for recheck. Follow-up with Dr. Fritz as scheduled. Return back to the emergency room for worsening symptoms or concerns as needed. All discharge instructions reviewed with patient and/or family. Voiced understanding. Scripts Hydrocodone Bit/Acetaminophen (Hydrocodone/Acetaminophen 5/325mg Tablet) 1 Tab Tab 1 EACH PO Q4-6HR PRN for PAIN-MODERATE MDD 10 for 3 Days, #10 TAB Prov: SLY RAPHAEL 04/06/19 Nitrofurantoin Monohyd/M-Cryst (Macrobid 100 mg Capsule) 100 Mg Capsule 1 TAB PO BID for 7 Days, #14 CAP Prov: SLY RAPHAEL 04/06/19 SLY RAPHAEL April 06, 2019 17:56
--- NOTE | 2019-04-06 18:00 | NUR ---
PT UP TO BATHROOM WITH TECH AT THIS TIME.
[2019-04-06 18:03] LABS: ALBUMIN 4.5 GM/DL (3.2-4.5); BILIRUBIN,TOTAL 0.3 MG/DL (0.1-1.0); CALCIUM 9.9 MG/DL (8.5-10.1); CREATININE SERUM 0.92 MG/DL (0.60-1.30); POTASSIUM 4.5 MMOL/L (3.6-5.0); TOTAL PROTEIN 7.2 GM/DL (6.4-8.2)
[2019-04-06] MEDS ORDERED: NS IV 1000 ML 1,000 ML IV SCH (18:15)
[2019-04-06] MEDS ORDERED: KETOROLAC 30 MG/ML VIAL IVP ONE (18:45)
--- NOTE | 2019-04-06 18:58 | NUR ---
report from kristal manjarrez.
[2019-04-06 19:05] VITALS: BP 145/73
--- NOTE | 2019-04-06 19:05 | NUR ---
pt here with " daughter". pt alert gcs 15 though pt has h/o dimentia. pt denies chest and abd pain. denies back pain. denies dyspnea and no acute sighns of dyspnea noted. denies n/v/d. denies pain currently though says has back pain when she moves. pt feels slightly febrile like low grade temp. pt has liter bolus going w/o with 200 gone thus far.
--- NOTE | 2019-04-06 19:19 | NUR ---
pt cant ua yet. 500 bolus completed. i will recheck in 15-20 min.
--- NOTE | 2019-04-06 19:44 | NUR ---
tech collecting ua. bolus 3/4 completed.
[2019-04-06 19:55] LABS: BILIRUBIN,URINE NEGATIVE (NEGATIVE); CLARITY,URINE CLEAR; COLOR,URINE AMBER; GLUCOSE, URINE (UA) NEGATIVE (NEGATIVE); KETONES,URINE NEGATIVE (NEGATIVE); LEUKOCYTE ESTERASE ,URINE 3+ (NEGATIVE); NITRITE,URINE NEGATIVE (NEGATIVE); PH,URINE 5 (5-9); PROTEIN,URINE 2+ (NEGATIVE); UROBILINOGEN,URINE 1 MG/DL (NORMAL)
[2019-04-06 20:05] LABS: BACTERIA,URINE TRACE /HPF; WBC,URINE 25-50 /HPF
--- NOTE | 2019-04-06 20:15 | NUR ---
bolus completed. ivf to pl
[2019-04-06] MEDS ORDERED: NITR-65 PO (20:18)
[2019-04-06] MEDS ORDERED: ACHD5005 PO (20:18)
[2019-04-06] MEDS ORDERED: RX-HYDROCODONE/APAP 5/325 MG #4 TAB PK PO PRN (20:30)
[2019-04-06] MEDS ORDERED: NITROFURANTOIN 100 MG (MACROBID) CAPSULE PO ONE (20:30)
[2019-04-06 21:15] VITALS: BP 144/74
--- NOTE | 2019-04-06 21:15 | NUR ---
d/c instructions to daughter. told to read all papers and give them to care center. scripts written and faxed. pt left in w/c with daughter who is taking pt back to care center. i helped pt to car. iv d/cd by me prior to d/c. take home vicodin given to daughter. i did not go over the handtyped by dr lucas. i forgot.
--- NOTE | 2019-04-06 21:18 | NUR ---
i called report back to care center. spoke with ghazala.
== END 2019-04-06 21:15 | disposition home or self-care (01) ==
LOC: ER 14:46 → EDUNIT# 14:46 → ER 21:15
DX: N39.0 Urinary tract infection, site not specified (principal); N20.0 Calculus of kidney; J44.9 Chronic obstructive pulmonary disease, unspecified; Z88.0 Allergy status to penicillin; Z79.82 Long term (current) use of aspirin; Z87.891 Personal history of nicotine dependence
CPT/HCPCS: 36415; 80053; 81000; 85025; 87088; 96374; 96375

== ENCOUNTER → 2019-04-06 | Outpatient (CLI) | payer MEDICARE, MEDICAID ==
[~2019-04-06] MED LIST changes: +ACHD5005 PO; +ALPR0.254 PO; +BUDE10.2 IH; +DONE10TA41 PO; +ESCI20TA45 PO; +IPRA3AMP31 INH; +MEMA10TA22 PO; +NITR-65 PO; +PANT20TA3 PO; +PRD20T PO
--- NOTE | 2019-04-06 14:34 | Diagnostic Imaging Report ---
PROCEDURE: CT abdomen and pelvis without contrast. TECHNIQUE: Multiple contiguous axial images were obtained through the abdomen and pelvis without the use of intravenous contrast. Auto Exposure Controls were utilized during the CT exam to meet ALARA standards for radiation dose reduction. INDICATION: Right-sided renal stone and right-sided pain. COMPARISON: Correlation is made with prior CT from 06/19/2011. FINDINGS: Imaging through the lung bases demonstrates a large hiatal hernia. There is some minimal scarring in the left lower lobe and right lower lobe. No focal liver mass is detected. Gallbladder is unremarkable. No biliary duct dilatation is seen. The pancreas and spleen are unremarkable. No adrenal mass is detected. The right kidney does contain a tiny nonobstructing calculus in the upper pole. No left-sided renal calculi are seen. There may be hyperdense lesion in the lower pole of the right kidney measuring 8 mm. This is too small to characterize but could represent a hemorrhagic cyst. Aorta is heavily calcified but nonaneurysmal. Small and large bowel loops are normal caliber. There is no obstruction. There is diverticulosis of the sigmoid colon but no evidence of acute diverticulitis. Appendix is unremarkable in the right lower quadrant. There is no ascites. Bladder is decompressed. The uterus appears to be surgically absent. IMPRESSION: 1. Large hiatal hernia. 2. Tiny nonobstructing right upper pole renal calculus. No hydronephrosis or ureteral calculi are identified. 3. Uncomplicated sigmoid diverticulosis. Dictated by: Dictated on workstation # [id number]
== END ==
LOC: RAD 13:22
PROVIDERS: ATTEND Urology
DX: N20.0 Calculus of kidney (principal); K44.9 Diaphragmatic hernia without obstruction or gangrene; K57.30 Diverticulosis of large intestine without perforation or abscess without bleeding
CPT/HCPCS: 74176

== ENCOUNTER → 2019-12-26 | Outpatient (CLI) | payer MEDICARE, MEDICAID ==
[~2019-12-26] MED LIST changes: +ACHD5005 PO; -MEMA10TA22 PO; +MEMA10TA57 PO; -METO-370 PO; +NITR-65 PO
== END ==
LOC: CARD 13:49
PROVIDERS: ATTEND Family Medicine
DX: I35.0 Nonrheumatic aortic (valve) stenosis (principal)
CPT/HCPCS: 93306

== ENCOUNTER 2021-05-18 23:05 | Emergency (ER) | payer MEDICARE, MEDICAID ==
[~2021-05-18] VITALS: Ht 158 cm; Wt 73.0 kg
[~2021-05-18 23:05] MED LIST changes: +ALPR.25T PO; -ALPR0.254 PO; +AMLO-251 PO; -AMLO10TA7 PO; +ASPI-1238 PO; -ASPI-983 PO; +ESCI20TA39 PO; -ESCI20TA45 PO; -ESCI5TAB12 PO; +ESCI5TAB16 PO; +PANT20TA18 PO; -PANT20TA3 PO
--- NOTE | 2021-05-18 23:51 | ED Head Injury ---
General Chief Complaint: Trauma-Non Activation Stated Complaint: FALL/HEAD INJURY Nursing Triage Note: brought in by long term staff s/p fall at 2119. c/o headache, laceration to left eyebrow, skin abraision to left elbow. no loc/other injury. Source: patient, family Exam Limitations: no limitations History of Present Illness Date Seen by Provider: May 18, 2021 Time Seen by Provider: 23:35 Initial Comments Patient is a 80-year-old female who presents to the emergency department after a trip and fall. Patient resides at a local long term and fell at about 9:20 this evening. She started complaining of a headache and was brought to the emergency room for further evaluation. Patient states that her feet just "quit working" and she fell down. She denies any dizziness, shortness of breath, chest pain. She denies nausea, vomiting. She did hit her elbow and suffered skin tears to the left upper extremity. She suffered a laceration to the left lateral eye. She has some bruising noted. She denies neck pain, back pain, hip pain. She is awake alert oriented to person place and time. Her granddaughter is with her at the bedside. She is not on blood thinners. All other review of systems reviewed and negative except as stated above. Location Injury Occurred: [facility] Occurred: this evening Severity: mild Location: frontal Method of Injury: fell Loss of Consciousness: no loss of consciousness Associated Systoms: Denies Symptoms Allergies and Home Medications Allergies Coded Allergies: Penicillins (Verified Allergy, Severe, ANAPHYLAXIS, 01/14/18) Per Dr. Hinojosa patient has had Cephalosporins in the past without issue Home Medications ALPRAZolam 0.25 Mg Tablet, 0.25 MG PO HS PRN for ANXIETY Prescribed by: RIGOBERTO HINOJOSA on 12/03/18 1326 Amlodipine Besylate 10 Mg Tablet, 10 MG PO DAILY, (Reported) Aspirin 81 Mg Tablet.dr, 81 MG PO DAILY, (Reported) Atorvastatin Calcium 40 Mg Tablet, 40 MG PO HS, (Reported) Budesonide/Formoterol Fumarate 10.2 Gm Hfa.aer.ad, 2 PUFF IH BID Prescribed by: RIGOBERTO HINOJOSA on 12/03/18 1327 Donepezil HCl 10 Mg Tablet, 10 MG PO HS, (Reported) Escitalopram Oxalate 20 Mg Tablet, 20 MG PO DAILY, (Reported) Hydrocodone Bit/Acetaminophen 1 Tab Tab, 1 EACH PO Q4-6HR PRN for PAIN-MODERATE Prescribed by: SLY RAPHAEL on 04/06/192017 Ipratropium/Albuterol Sulfate 3 Ml Ampul.neb, 3 ML INH QID Prescribed by: RIGOBERTO HINOJOSA on 12/03/18 1326 Memantine HCl 10 Mg Tablet, 10 MG PO BID, (Reported) Nitrofurantoin Monohyd/M-Cryst 100 Mg Capsule, 1 TAB PO BID Prescribed by: SLY RAPHAEL on 04/06/192017 Pantoprazole Sodium 20 Mg Tablet.dr, 20 MG PO DAILY, (Reported) Patient Home Medication List Home Medication List Reviewed: Yes Review of Systems Review of Systems Constitutional: see HPI Respiratory: no symptoms reported Cardiovascular: no symptoms reported Gastrointestinal: no symptoms reported Genitourinary: no symptoms reported Musculoskeletal: other (Left arm pain secondary to skin tears) Skin: other (Skin tears left arm/elbow. Laceration left eye) Psychiatric/Neurological: No Symptoms Reported All Other Systems Reviewed Negative Unless Noted: Yes Past Jdumuya-Inbtbu-Mermlc Hx Patient Social History Tobacco Use?: Yes Tobacco type used: Cigarettes Smoking Status: Current Everyday Smoker Pt feels they are or have been: No Seasonal Allergies Seasonal Allergies: No Past Medical History Surgeries: No Respiratory: Yes (COPD) COPD Currently Using CPAP: No Currently Using BIPAP: No Cardiac: Yes Neurological: No Reproductive Disorders: Yes Genitourinary: Yes Kidney Stones Gastrointestinal: No Musculoskeletal: No Endocrine: No HEENT: Yes Hearing Impairment: Hard of Hearing Cancer: No Psychosocial: No Integumentary: No Blood Disorders: No Physical Exam Vital Signs Vital Signs - First Documented 05/18/21 23:11 Temp 36.7 Pulse 76 Resp 18 B/P (MAP) 164/95 (118) Pulse Ox 95 O2 Delivery Room Air Capillary Refill : Less Than 3 Seconds Height, Weight, BMI Height: 5'2.00" Weight: 160lbs. 0oz. 72.156437oi; 29.00 BMI Method:Stated General Appearance: WD/WN HEENT: PERRL/EOMI, other (Bruising to the lateral left eye with a 2 and half centimeter laceration just lateral to the canthus. Extraocular muscles are intact pupils are equal round and reactive to light. Laceration is mildly tender to palpation) Neck: non-tender, supple Cardiovascular: regular rate, rhythm Respiratory: lungs clear, normal breath sounds, no respiratory distress, no accessory muscle use Gastrointestinal: soft Extremities: swelling (Swelling and ecchymosis to the left elbow, bruising noted to the dorsum of the left upper arm in the distal aspect and proximal forearm with dressings in place) Psychiatric: alert, oriented x 3, depressed affect Crainal Nerves: normal hearing, normal speech, PERRL Motor/Sensory: no motor deficit, no sensory deficit Skin: normal color, warm/dry, other (2-1/2 cm laceration just lateral to the left eye, no active bleeding) Procedures/Interventions Wound Location: Eye Wound Length (cm): 2.5 Wound's Depth, Shape: superficial Wound Explored: clean Wound closed with skin glue. And a Steri-Strip Progress/Results/Core Measures Results/Orders My Orders Orders - MAYLIN MARIN MD Ct Head/Neck Wo (05/18/21 23:44) Hydrocodone/Apap 5/325 Tablet (Lortab 5 (05/19/21 01:15) Medications Given in ED Current Medications Medications Dose Ordered Sig/Alexandro Route Start Time Stop Time Status Last Admin Dose Admin Acetaminophen/ Hydrocodone Bitart 1 ea ONCE ONCE PO 05/19/21 01:15 05/19/21 01:16 DC 05/19/21 01:20 1 EA Vital Signs/I&O 05/18/21 23:11 Temp 36.7 Pulse 76 Resp 18 B/P (MAP) 164/95 (118) Pulse Ox 95 O2 Delivery Room Air Blood Pressure Mean: 118 Diagnostic Imaging Diagonstic Imaging: CT Plain Films/CT/US/NM/MRI: c-spine, head Comments per Stat Rad, no acute findings in the brain or cervical spine Departure Impression Primary Impression: Minor head injury Qualified Codes: S09.90XA - Unspecified injury of head, initial encounter Additional Impression: Laceration of left eye region Disposition: HOME, SELF-CARE Condition: Stable Departure-Patient Inst. Decision time for Depature: 23:50 Referrals: RIGOBERTO HINOJOSA DO (PCP/Family) Primary Care Physician Patient Instructions: Minor Head Injury (DC), Laceration Repair With Glue ED Add. Discharge Instructions: Keep the skin tears and laceration to you left eye clean. Change the bandages on the skin tear every 1-2 days. the glue over you laceration by your eye will start to wear off after 5 days. try not to pick at it. Tylenol as needed for headache. Follow up with your primary care doctor. Return to the ER for any new, emergent or concerning symptoms. MAYLIN MARIN MD May 18, 2021 23:51
[2021-05-19] MEDS ORDERED: HYDROcodone/APAP 5 MG/325 MG (LORTAB) TAB PO ONE (01:15)
[2021-05-19 01:51] VITALS: BP 135/86
--- NOTE | 2021-05-19 07:09 | Diagnostic Imaging Report ---
PROCEDURE: CT head and neck without contrast. TECHNIQUE: Contiguous axial images were obtained from the skull base through the vertex. Noncontrast axial images were then obtained of the soft tissue of the neck. Auto Exposure Controls were utilized during the CT exam to meet ALARA standards for radiation dose reduction. INDICATION: Fall. Hit head on floor. COMPARISON: CT head without contrast 01/12/2018. FINDINGS: CT HEAD: Moderate to advanced generalized parenchymal volume loss and leukoaraiosis. No intracranial hemorrhage, mass effect, hydrocephalus or extra-axial fluid collections. No CT evidence of a territorial infarction. Osseous structures are intact. Paranasal sinuses and mastoids are clear. CT CERVICAL SPINE: Normal alignment. Vertebral body heights preserved. No fractures. No high-grade spinal canal stenosis is evident on soft tissue windows. Mild atherosclerotic calcifications in the carotid bifurcations. Lung apices are clear. IMPRESSION: No acute intracranial or cervical spine CT findings. Dictated by: Dictated on workstation # [id number]
== END 2021-05-19 01:52 | disposition home or self-care (01) ==
LOC: EDUNIT# 23:05 → ER 23:07
DX: S05.32XA Ocular laceration without prolapse or loss of intraocular tissue, left eye, initial encounter (principal); S50.02XA Contusion of left elbow, initial encounter; S40.022A Contusion of left upper arm, initial encounter; S09.90XA Unspecified injury of head, initial encounter; J44.9 Chronic obstructive pulmonary disease, unspecified; F17.210 Nicotine dependence, cigarettes, uncomplicated; Z79.82 Long term (current) use of aspirin; W01.0XXA Fall on same level from slipping, tripping and stumbling without subsequent striking against object, initial encounter
CPT/HCPCS: 12013; 70450; 70490

== ENCOUNTER → 2021-06-05 | Outpatient (CLI) | payer MEDICARE, MEDICAID | LOC: CARD 11:30 | PROVIDERS: ATTEND Family Medicine | DX: I08.0 Rheumatic disorders of both mitral and aortic valves (principal); I65.29 Occlusion and stenosis of unspecified carotid artery; W19.XXXA Unspecified fall, initial encounter | CPT/HCPCS: 93306 ==

== ENCOUNTER 2022-02-28 23:32 | Emergency (ER) | payer MEDICAID, MEDICARE, OTHER ==
[~2022-02-28] VITALS: Ht 157.4 cm; Wt 69.3 kg
[~2022-02-28 23:32] MED LIST changes: -POTA99TA21 PO; +POTA99TA26 PO
--- NOTE | 2022-02-28 23:40 | ED Fall/Injury ---
General Chief Complaint: Trauma-Non Activation Stated Complaint: FALL Source: patient (HARD OF HEARING; VERY POOR MEMORY, BUT REMEMBRS FALLING; OTHERWISE IS PLEASANTLY CONFUSED TO PLACE, TIME, SITUATION. ), old records (ALL PMH IS FROM [facility], NO PAPERWORK SENT WITH PT FROM [facility] . ) Exam Limitations: clinical condition History of Present Illness Date Seen by Provider: Feb 28, 2022 Time Seen by Provider: 23:33 Initial Comments PT ARRIVES VIA EMS WITH CERVICAL COLLAR IN PLACE FROM [facility] PT HAD A WITNESSED FALL--STAFF MEMBER WAS WALKING WITH HER, AND WAS WALKING DOWN THE [place] AND PT REPORTEDLY STUMBLED AND FELL FORWARD, HITTING FACE ON FLOOR NO LOSS OF CONSCIOUSNESS PT HAS C/O NECK PAIN AND RIGHT KNEE PAIN PT ALSO HAS ABRASIONS TO NOSE WITH SWELLING AND BRUISING TO NOSE PT HAS THROUGH AND THROUGH LACERATION ABOVE UPPER LIP--PT ARRIVES WITHOUT DENTURES, BUT STATES SHE WAS WEARING DENTURES WHEN SHE FELL. PT HAS NO OTHER COMPLAINTS. PT IS SMILING AND VERY TALKATIVE AND PLEASANT, BUT CONFUSED. PT WITH HISTORY OF DEMENTIA PCP: DR. HINOJOSA Allergies and Home Medications Allergies Coded Allergies: Penicillins (Verified Allergy, Severe, ANAPHYLAXIS, 01/14/18) Per Dr. Hinojosa patient has had Cephalosporins in the past without issue Patient Home Medication List Home Medication List Reviewed: Yes ALPRAZolam (Xanax Tablet) 0.25 Mg Tablet, 0.25 MG PO HS PRN for ANXIETY Prescribed by: RIGOBERTO HINOJOSA on 12/03/18 1326 Amlodipine Besylate (Amlodipine Besylate) 10 Mg Tablet, 10 MG PO DAILY, (Reported) Entered as Reported by: DOLLY SIDDIQUI on 01/12/18 1113 Aspirin (Aspirin EC) 81 Mg Tablet.dr 81 MG PO DAILY, (Reported) Entered as Reported by: DOLYL SIDDIQUI on 11/29/18 1620 Atorvastatin Calcium (Atorvastatin Calcium) 40 Mg Tablet, 40 MG PO HS, (Reported) Entered as Reported by: DOLLY SIDDIQUI on 01/12/18 1113 Budesonide/Formoterol Fumarate (Symbicort 160-4.5 Mcg Inhaler) 10.2 Gm Hfa.aer.ad, 2 PUFF IH BID Prescribed by: RIGOBERTO HINOJOSA on 12/03/18 1327 Cephalexin (Cephalexin) 500 Mg Tablet, 500 MG PO QID Prescribed by: MARISSA LUX on 03/01/22 0158 Donepezil HCl (Donepezil HCl) 10 Mg Tablet, 10 MG PO HS, (Reported) Entered as Reported by: DOLLY SIDDIQUI on 11/29/18 161 Escitalopram Oxalate (Escitalopram Oxalate) 20 Mg Tablet, 20 MG PO DAILY, (Reported) Entered as Reported by: DOLLY SIDDIQUI on 11/29/18 161 Hydrocodone Bit/Acetaminophen (Lortab 5 Mg Tablet) 1 Tab Tab, 1 EACH PO Q4-6HR PRN for PAIN-MODERATE Prescribed by: SLY RAPHAEL on 04/06/192017 Ipratropium/Albuterol Sulfate (Iprat-Albut 0.5-3(2.5) mg/3 ml) 3 Ml Ampul.neb, 3 ML INH QID Prescribed by: RIGOBERTO HINOJOSA on 12/03/18 1326 Memantine HCl (Memantine HCl) 10 Mg Tablet, 10 MG PO BID, (Reported) Entered as Reported by: DOLLY SIDDIQUI on 11/29/18 161 Nitrofurantoin Monohyd/M-Cryst (Macrobid 100 mg Capsule) 100 Mg Capsule, 1 TAB PO BID Prescribed by: SLY RAPHAEL on 04/06/192017 Pantoprazole Sodium (Pantoprazole Sodium) 20 Mg Tablet.dr, 20 MG PO DAILY, (Reported) Entered as Reported by: DOLLY SIDDIQUI on 11/29/18 161 Review of Systems Review of Systems Constitutional: no symptoms reported Eyes: No Symptoms Reported Ears, Nose, Mouth, Throat: see HPI Respiratory: no symptoms reported Cardiovascular: no symptoms reported Gastrointestinal: no symptoms reported Genitourinary: no symptoms reported Musculoskeletal: see HPI Skin: see HPI Psychiatric/Neurological: Denies Headache, Denies Numbness, Denies Paresthesia, Denies Seizure, Denies Weakness Past Xiuzrkk-Xsnddc-Mwpmdr Hx Patient Social History Tobacco Use?: Yes Tobacco type used: Cigarettes Smoking Status: Current Everyday Smoker Seasonal Allergies Seasonal Allergies: No Past Medical History Surgeries: Yes (KIDNEY STONE REMOVAL; CARPAL TUNNEL SURGERY; HYSTERECTOMY) Hysterectomy, Orthopedic, Renal Respiratory: Yes (COPD) COPD Currently Using CPAP: No Currently Using BIPAP: No Cardiac: Yes High Cholesterol, Hypertension Neurological: Yes Dementia Reproductive Disorders: Yes Genitourinary: Yes Kidney Stones, UTI-Chronic Gastrointestinal: Yes Gastroesophageal Reflux, Diverticulosis Musculoskeletal: No Endocrine: No HEENT: Yes Hearing Impairment: Hard of Hearing Cancer: No Psychosocial: No Integumentary: No Blood Disorders: No Physical Exam Vital Signs Vital Signs - First Documented 02/28/22 03/01/22 23:33 02:25 Temp 36.9 Pulse 66 Resp 22 B/P (MAP) 197/127 (150) Pulse Ox 96 O2 Delivery Room Air Capillary Refill : Height, Weight, BMI Height: 5'2.00" Weight: 160lbs. 0oz. [id number]; 29.00 BMI Method:Stated General Appearance: WD/WN, no apparent distress, other (SMILING, VERY PLEASANTLY CONFUSED, VERY TALKATIVE. ) HEENT: PERRL/EOMI, TMs normal, pharynx normal, other (MILD SWELLING AND BRUISING TO NOSE, WITH ABRASIONS TO BRIDGE OF NOSE AND TIP OF NOSE. DIFFUSE TENDERNESS TO NOSE. NO NOSEBLEED. NO OBVIOUS DEFORMITY. 1 CM HORIZONTAL LACERATION ABOVE UPPER LIP--IS A THROUGH AND THROUGH LACERATION OF UPPER LIP WITH MODERATE BRUISING TO INSIDE OF UPPER LIP. PT IS EDENTULOUS. NO INJURY TO GUM TISSUE OR ANY OTHER PART OF MOUTH/ORAL CAVITY. ) Neck: non-tender, full range of motion, supple, normal inspection Cardiovascular: normal peripheral pulses, regular rate, rhythm, no edema, no JVD, no murmur Respiratory: chest non-tender, normal breath sounds, no respiratory distress, no accessory muscle use Peripheral Pulses: 2+ Dorsalis Pedis (R), 2+ Left Dors-Pedis (L), 2+ Radial Pulses (R), 2+ Radial Pulses (L) Gastrointestinal: normal bowel sounds, non tender, soft Back: normal inspection, no CVA tenderness, no vertebral tenderness Extremities: no pedal edema, normal capillary refill, other (TENDERNESS TO LEFT KNEE, WITH BRUISING AND SWELLING TO LEFT KNEE. FULL ROM AND FULL WEIGHT BEARING. MOTOR/SENSORY/VASCULAR INTACT TO ALL EXTREMITIES.) Neurologic/Psychiatric: tubular riveter II-XII nml as tested, no motor/sensory deficits, alert, normal mood/affect; No aphasia; other (ORIENTED TO SELF AND KNOWS SHE IS IN A HOSPITAL--INITIALLY SAID SHE WAS IN [place] THEN LATER STATES SHE LIVES IN [place]. BUT DISORIENTED TO TIME, SITUATION AND HAS POOR MEMORY AND IS OTHER ABAD CONFUSED. INITIALLY DID NOT RECOGNIZE DAUGHTER--NORMAL FOR PT. PT IS AT NORMAL BASELINE PER DAUGHTER. ) Skin: normal color, warm/dry, other ( NOTED ABOVE) Raghu Coma Score Best Eye Response: (4) Open Spontaneously Best Verbal Response: (4) Confused Conversation Best Motor Response: (6) Obeys Commands Raghu Total: 14 Procedures/Interventions Wound Location: Face Other Wound Location THROUGH AND THROUGH LACERATION ABOVE UPPER LIP Wound Length (cm): 1 Wound's Depth, Shape: sub Q Wound Explored: clean Betadine Prep?: No (BETASEPT AND SALINE) Other Closure Supply: Wound Adhesive Progress/Results/Core Measures Results/Orders My Orders Orders - MARISSA LUX DO Monitor-Rhythm Ecg Trace Only (02/28/22 23:39) Dipht,Pertuss(Acell),Tet Adult (Boostrix (02/28/22 23:45) Ct Head/Face/Cervical Wo (03/01/22 00:01) Knee, Left, 3 Views (03/01/22 00:01) Pelvis (03/01/22 00:01) Medications Given in ED Current Medications Medications Dose Ordered Sig/Alexandro Route Start Time Stop Time Status Last Admin Dose Admin Diphtheria/ Tetanus/Acell Pertussis 0.5 ml ONCE ONCE IM 02/28/22 23:45 02/28/22 23:46 DC 02/28/22 23:58 0.5 ML Vital Signs/I&O 02/28/22 03/01/22 23:33 02:25 Temp 36.9 36.7 Pulse 66 62 Resp 22 18 B/P (MAP) 197/127 (150) 180/99 Pulse Ox 96 98 O2 Delivery Room Air Progress Progress Note : Progress Note NO DETERIORATION IN PT'S CONDITION DURING ER STAY PT CONSTANTLY MOVING ARM WHEN TAKING BLOOD PRESSURE, AND WILL NOT HOLD ARM STILL DURING BP READINGS. Diagnostic Imaging Comments [facility]--PENDING RADIOLOGIST REVIEW PELVIS--NO ACUTE PROCESS LEFT KNEE--NO ACUTE BONY INJURY CT HEAD/MAXILLOFACIALS/CERVICAL SPINE--PER [facility] VIA FAX AT 0057 [address] BRIDGE FRACTURE MODERATE MUCOSAL THICKENING OF MAXILLARY SINUSES AND ETHMOID SINUS INFLAMMATORY OPACITIES NO ACUTE INTRACRANIAL PROCESS, BUT CHRONIC MARKED MICROVASCULAR WHITE MATTER DISEASE. NO CERVICAL FRACTURE, MILD CERVICAL SPONDYLOSIS Reviewed: Reviewed by Me Departure Communication (Admissions) Family Conversation 0225--DAUGHTER HERE TO PICK PT UP. DAUGHTER REPORTS THAT PT HAS VASCULAR DEMENTIA AND IS ALWAYS CONFUSED AND IS AT NORMAL BASELINE. DAUGHTER STATES SHE WOULD NOT BE WEARING ANY DENTURES DAUGHTER REPORTS THAT LOIDA HUNTER NEVER CONTACTED HER TO INFORM HER THAT PT HAD FALLEN AND WAS BROUGHT HERE. Impression Primary Impression: Fall from standing Additional Impressions: Nasal bone fracture Closed head injury without loss of consciousness THROUGH AND THROUGH UPPER LIP LACERATION Disposition: 03 XF SNF Condition: Stable Departure-Patient Inst. Decision time for Depature: 01:40 Referrals: RIGOBERTO HINOJOSA DO (PCP/Family) Primary Care Physician Patient Instructions: Contusion (DC), Knee Pain, Laceration Repair With Glue ED, Minor Head Injury, Adult ED, Nose Fracture (DC), Preventing Falls ED, Skin Abrasions (DC) Add. Discharge Instructions: LEAVE WOUND ADHESIVE IN PLACE--WILL FALL OFF ON IT'S OWN IN A FEW DAYS. DO NOT GET THIS AREA WET AND NO LOTIONS, CREAMS OR OINTMENTS TO THIS AREA ICE TO SORE AREAS AT 20 MINUTE INTERVALS CLEAN ABRASIONS WITH SOAP AND WATER, APPLY ANTIBIOTIC OINTMENT TWICE A DAY TYLENOL NEEDED FOR PAIN FOLLOW UP WITH DR. HINOJOSA IN 2-3 DAYS FOR FURTHER CARE All discharge instructions reviewed with patient and/or family. Voiced understanding. Scripts Cephalexin (Cephalexin) 500 Mg Tablet 500 MG PO QID, #20 TAB 0 Refills Prov: MARISSA LUX DO 03/01/22 MARISSA LUX DO Feb 28, 2022 23:40
[2022-02-28] MEDS ORDERED: TETANUS,DIPTH,PERTUSS P/F (BOOSTRIX) 0.5 ML VIAL IM ONE (23:45)
[2022-03-01] MEDS ORDERED: CEPH500T PO (01:58)
[2022-03-01 02:25] VITALS: BP 180/99
--- NOTE | 2022-03-01 07:35 | Diagnostic Imaging Report ---
INDICATION: Fall. Time of Exam: 12:28 AM Single view of the pelvis was obtained. Femoral acetabular alignment appears to be normal. Both femoral heads and necks appear to be intact. Rami are intact. No definite fractures are seen. IMPRESSION: No acute bony abnormality is detected. Dictated by: Dictated on workstation # [id number]
--- NOTE | 2022-03-01 07:39 | Diagnostic Imaging Report ---
PROCEDURE: CT head, face, and cervical spine without contrast. TECHNIQUE: Multiple contiguous axial images were obtained through the head, neck, and facial bones without the use of intravenous contrast. Sagittal and coronal reformations through the cervical spine and facial bones were also performed. Auto Exposure Controls were utilized during the CT exam to meet ALARA standards for radiation dose reduction. INDICATION: Fall while walking with facial and neck pain. Compared with CT head and cervical 05/18/2021 CT HEAD: There is no intracranial hemorrhage hydrocephalus edema mass mass effect nor evidence for an elevation intrarenal pressures there is no abnormal extra-axial fluid collection. Some mild cervical cortical atrophy unremarkable for age and periventricular white matter small vessel disease unchanged. There is no calvarial fracture deformity. No pneumocephalus. Intracranial atherosclerotic vascular calcifications chronic. CT CERVICAL: No cervical spinal fracture or dislocation. No paraspinal hemorrhage. The hyoid, structures of the larynx and tracheal cartilage showed no traumatic deformity. The thoracic inlet and visualized pulmonary apices nonacute. No paraspinal hemorrhage. There are degenerative changes to the discs, endplates and facets throughout the cervical spine chronic. The craniocervical relationship and central skull base appeared unremarkable. The mastoid air cells and middle ear cavities clear. CT FACIAL BONES: A new nondisplaced fracture of the nasal bridge with overlying soft tissue swelling and soft tissue gas inferior to that fracture present. The a bony nasal septum showed no traumatic deformity. The bony orbital and maxillary sinus lopez are intact. There is membrane thickening in the left greater than right maxillary sinuses as well as left greater than right sphenoid. There is opacification of multiple ethmoid air cells anteriorly. There is membrane thickening along the left infundibulum narrowing if not occluding the left maxillary sinus ostia. The right maxillary sinus ostia is at least mildly narrowed by membrane disease. No hemo-sinus or paranasal sinus air-fluid level and there is no fracture to the bony orbital or maxillary sinus lopez. The pterygoid plates intact. The mandible intact. No dislocation to the bony temporomandibular joints. Atherosclerotic vascular calcifications chronic. IMPRESSION:. CT HEAD: Stable chronic senescent findings with no hemorrhage, pneumocephalus, edema or calvarial fracture deformity. CT CERVICAL SPINE: Chronic degenerative changes but no cervical spinal fracture or dislocation. CT FACIAL BONES: Subtle nondisplaced nasal bridge fracture. No other facial fracture found. There is inflammatory paranasal sinus membrane disease without air-fluid level. I agree with the preliminary. Dictated by: Dictated on workstation # [id number]
--- NOTE | 2022-03-01 07:41 | Diagnostic Imaging Report ---
INDICATION: Fall with left knee pain. Time of Exam: 12:29 AM 3 views of the left knee were obtained. Alignment is normal. Joint spaces are well maintained. Articular surfaces are smooth. No fracture, dislocation or effusion is seen. IMPRESSION: No acute bony abnormality is detected. Dictated by: Dictated on workstation # [id number]
== END 2022-03-01 02:33 ==
LOC: EDUNIT# 23:32 → ER 23:34
DX: S09.90XA Unspecified injury of head, initial encounter (principal); S02.2XXA Fracture of nasal bones, initial encounter for closed fracture; S01.511A Laceration without foreign body of lip, initial encounter; S80.02XA Contusion of left knee, initial encounter; F17.210 Nicotine dependence, cigarettes, uncomplicated; Z23 Encounter for immunization; W01.198A Fall on same level from slipping, tripping and stumbling with subsequent striking against other object, initial encounter; Y92.89 Other specified places as the place of occurrence of the external cause
CPT/HCPCS: 70450; 70486; 72125; 72170; 73562; 90715; 93041

== ENCOUNTER 2022-08-07 19:46 | Observation (INO) | payer MEDICARE, OTHER ==
[~2022-08-07] VITALS: Ht 152.4 cm; Wt 64.7 kg
[~2022-08-07 19:46] MED LIST changes: +CEPH500T PO; +OMEP20TA56 PO; -OMEP20TA7 PO
--- NOTE | 2022-08-07 20:19 | ED Chest Pain ---
General Chief Complaint: Chest Pain Stated Complaint: CHEST PAIN Nursing Triage Note: TO ED VIA [facility] FROM [facility] WITH C/O CP. PT WAS GIVEN 324 ASA PO AND 1 NITRO SL EN ROUTE. DENIES CP ON ARRIVAL. Source: patient, family, EMS Exam Limitations: no limitations History of Present Illness Date Seen by Provider: Aug 07, 2022 Time Seen by Provider: 19:45 Initial Comments Patient to the ER by EMS from [facility] assisted living with chief complaint that this morning she woke up and staff noted she was not acting right, somnolent and may have had a little left-sided facial drooping and slurred speech. Her daughter states she did not see that she thought maybe she is a little puffy on the left side. He did get some blood work done which revealed nothing significant. They were not able to get a urine out of her. Her daughter states she gets very goofy whenever she gets a UTI and she gets them frequently. She thought that her mother looked very dehydrated today. No fevers or chills. No cough shortness of air. No history of stroke or heart a ttack but she does have a heart murmur and a history of vascular dementia. The patient is oriented to self and place but not time. The patient reported chest pain in her right chest nonradiating to the EMS staff. They gave her an aspirin 324 mg and a single dose of nitroglycerin which made her chest pain go away. The patient states she does not have any pain nausea chills or shortness of air now. He has a history of COPD on chronic oxygen. EMS reports she is satting 98 -100% on her 2 L. The patient does take beta-blockers. She is not on blood thinners. She is a full code under the care of Dr. HINOJOSA. She is on cephalexin daily given her history of frequent UTIs. Blood test from 1:00 this afternoon demonstrate a sodium of 134, potassium 4.3, glucose of 116, creatinine of 0.9, BUN of 16 and a bilirubin of 1.8. White count of 6, hemoglobin 13, platelets 200,000 and hemoglobin A1c of 5.0 [address] Shah demonstrating normal left ejection fraction of 60% and mild diastolic dysfunction suggested. Mild to moderate aortic valve stenosis with deterioration compared to 2013. Cardiac catheterization in [address] Shah demonstrating nonobstructive disease of the coronary system. 40 to 50% stenosis in the mid left anterior descending artery, 30% stenosis in the mid right coronary artery otherwise nonobstructive disease. EF of 60%. Allergies and Home Medications Allergies Coded Allergies: Penicillins (Verified Allergy, Severe, ANAPHYLAXIS, 01/14/18) Per Dr. Hinojosa patient has had Cephalosporins in the past without issue Patient Home Medication List Home Medication List Reviewed: Yes ALPRAZolam (Xanax Tablet) 0.25 Mg Tablet, 0.25 MG PO HS PRN for ANXIETY Prescribed by: RIGOBERTO HINOJOSA on 12/03/18 1326 Amlodipine Besylate (Amlodipine Besylate) 10 Mg Tablet, 10 MG PO DAILY, (Reported) Entered as Reported by: DOLLY SIDDIQUI on 01/12/18 1113 Aspirin (Aspirin EC) 81 Mg Tablet.dr, 81 MG PO DAILY, (Reported) Entered as Reported by: DOLLY SIDDIQUI on 11/29/18 1620 Atorvastatin Calcium (Atorvastatin Calcium) 40 Mg Tablet, 40 MG PO HS, (Reported) Entered as Reported by: DOLLY SIDDIQUI on 01/12/18 1113 Budesonide/Formoterol Fumarate (Symbicort 160-4.5 Mcg Inhaler) 10.2 Gm Hfa.aer.ad, 2 PUFF IH BID Prescribed by: RIGOBERTO HINOJOSA on 12/03/18 1327 Cephalexin (Cephalexin) 500 Mg Tablet, 500 MG PO QID Prescribed by: MARISSA LUX on 03/01/22 0158 Donepezil HCl (Donepezil HCl) 10 Mg Tablet, 10 MG PO HS, (Reported) Entered as Reported by: DOLLY SIDDIQUI on 11/29/18 1616 Escitalopram Oxalate (Escitalopram Oxalate) 20 Mg Tablet, 20 MG PO DAILY, (Reported) Entered as Reported by: DOLLY SIDDIQUI on 11/29/18 1616 Hydrocodone Bit/Acetaminophen (Lortab 5 Mg Tablet) 1 Tab Tab, 1 EACH PO Q4-6HR PRN for PAIN-MODERATE Prescribed by: SLY RAPHAEL on 04/06/192017 Ipratropium/Albuterol Sulfate (Iprat-Albut 0.5-3(2.5) mg/3 ml) 3 Ml Ampul.neb, 3 ML INH QID Prescribed by: RIGOBERTO HINOJOSA on 12/03/18 1326 Memantine HCl (Memantine HCl) 10 Mg Tablet, 10 MG PO BID, (Reported) Entered as Reported by: DOLLY SIDDIQUI on 11/29/18 1616 Nitrofurantoin Monohyd/M-Cryst (Macrobid 100 mg Capsule) 100 Mg Capsule, 1 TAB PO BID Prescribed by: SLY RAPHAEL on 04/06/192017 Pantoprazole Sodium (Pantoprazole Sodium) 20 Mg Tablet.dr, 20 MG PO DAILY, (Reported) Entered as Reported by: DOLLY SIDDIQUI on 11/29/18 161 Review of Systems Review of Systems Constitutional: No chills, No diaphoresis EENTM: No Blurred Vision, No Double Vision Respiratory: Denies Cough, Denies Orthopnea Cardiovascular: Denies Chest Pain, Denies Edema Gastrointestinal: Denies Abdominal Pain, Denies Constipated, Denies Diarrhea, Denies Nausea Musculoskeletal: No back pain, No joint pain All Other Systems Reviewed Negative Unless Noted: Yes Past Glpihtn-Dncrzd-Bmkdvt Hx Patient Social History Tobacco Use?: No Use of E-Cig and/or Vaping dev: No Immunizations Up To Date Influenza Vaccine Up-to-Date: Yes; Up-to-Date COVID19 Vaccine 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 Seasonal Allergies Seasonal Allergies: No Past Medical History Surgeries: Yes (KIDNEY STONE REMOVAL; CARPAL TUNNEL SURGERY; HYSTERECTOMY) Hysterectomy, Orthopedic, Renal Respiratory: Yes (COPD) COPD Currently Using CPAP: No Currently Using BIPAP: No Cardiac: Yes High Cholesterol, Hypertension Neurological: Yes Dementia Reproductive Disorders: Yes Genitourinary: Yes Kidney Stones, UTI-Chronic Gastrointestinal: Yes Gastroesophageal Reflux, Diverticulosis Musculoskeletal: No Endocrine: No HEENT: Yes Hearing Impairment: Hard of Hearing Cancer: No Psychosocial: No Integumentary: No Blood Disorders: No Physical Exam Vital Signs Vital Signs - First Documented 08/07/22 19:49 Pulse 84 Resp 16 B/P (MAP) 147/81 (103) Pulse Ox 98 O2 Delivery Room Air Capillary Refill : Less Than 3 Seconds Height, Weight, BMI Height: 5'2.00" Weight: 160lbs. 0oz. 72.440496au; 27.00 BMI Method:Stated General Appearance: No Apparent Distress, WD/WN HEENT: PERRL/EOMI, TMs Normal, Pharynx Normal, Moist Mucous Membranes Neck: Full Range of Motion, Normal Inspection, Non Tender Respiratory: Lungs Clear, Normal Breath Sounds, No Accessory Muscle Use, No Respiratory Distress Cardiovascular: Regular Rate, Rhythm, No Edema, Normal Peripheral Pulses Gastrointestinal: Normal Bowel Sounds, No Organomegaly, Soft Extremity: Normal Capillary Refill, Normal Inspection Neurologic/Psychiatric: Alert; No Oriented x3 (Oriented to person and place) Skin: Normal Color, Warm/Dry Progress/Results/Core Measures Results/Orders Lab Results Laboratory Tests Test 08/07/22 19:55 Range/Units White Blood Count 5.2 4.3-11.0 10^3/uL Red Blood Count 4.89 3.80-5.11 10^6/uL Hemoglobin 13.2 11.5-16.0 g/dL Hematocrit 41 35-52 % Mean Corpuscular Volume 84 80-99 fL Mean Corpuscular Hemoglobin 27 25-34 pg Mean Corpuscular Hemoglobin Concent 32 32-36 g/dL Red Cell Distribution Width 17.1 H 10.0-14.5 % Platelet Count 189 130-400 10^3/uL Mean Platelet Volume 11.8 9.0-12.2 fL Immature Granulocyte % (Auto) 1 % Neutrophils (%) (Auto) 74 42-75 % Lymphocytes (%) (Auto) 8 L 12-44 % Monocytes (%) (Auto) 16 H 0-12 % Eosinophils (%) (Auto) 1 0-10 % Basophils (%) (Auto) 0 0-10 % Neutrophils # (Auto) 3.8 1.8-7.8 10^3/uL Lymphocytes # (Auto) 0.4 L 1.0-4.0 10^3/uL Monocytes # (Auto) 0.8 0.0-1.0 10^3/uL Eosinophils # (Auto) 0.0 0.0-0.3 10^3/uL Basophils # (Auto) 0.0 0.0-0.1 10^3/uL Immature Granulocyte # (Auto) 0.0 0.0-0.1 10^3/uL Prothrombin Time 14.2 12.2-14.7 SEC INR Comment 1.1 0.8-1.4 Activated Partial Thromboplast Time 29 24-35 SEC Sodium Level 139 135-145 MMOL/L Potassium Level 4.3 3.6-5.0 MMOL/L Chloride Level 102 98-107 MMOL/L Carbon Dioxide Level 26 21-32 MMOL/L Anion Gap 11 5-14 MMOL/L Blood Urea Nitrogen 19 H 7-18 MG/DL Creatinine 0.94 0.60-1.30 MG/DL Estimat Glomerular Filtration Rate 61 BUN/Creatinine Ratio 20 Glucose Level 112 H 70-105 MG/DL Calcium Level 9.9 8.5-10.1 MG/DL Corrected Calcium 10.0 8.5-10.1 MG/DL Magnesium Level 1.9 1.6-2.4 MG/DL Total Bilirubin 1.6 H 0.1-1.0 MG/DL Aspartate Amino Transf (AST/SGOT) 13 5-34 U/L Alanine Aminotransferase (ALT/SGPT) 12 0-55 U/L Alkaline Phosphatase 77 40-136 U/L Myoglobin 86.6 10.0-92.0 NG/ML Troponin I < 0.028 <0.028 NG/ML B-Type Natriuretic Peptide 969.4 H <100.0 PG/ML Total Protein 6.5 6.4-8.2 GM/DL Albumin 3.9 3.2-4.5 GM/DL My Orders Orders - TOYA,ELBA J Ekg Tracing (08/07/22 19:48) Continuous Ekg Monitoring (08/07/22 19:51) Cbc With Automated Diff (08/07/22 20:09) Magnesium (08/07/22 20:09) Chest 1 View, Ap/Pa Only (08/07/22 20:09) Comprehensive Metabolic Panel (08/07/22 20:09) Myoglobin Serum (08/07/22 20:09) Protime With Inr (08/07/22 20:09) Partial Thromboplastin Time (08/07/22 20:09) O2 (08/07/22 20:09) Lipid Panel (08/08/22 06:00) Ed Iv/Invasive Line Start (08/07/22 20:09) Bnp Gabriella (08/07/22 20:09) Troponin I [place] (08/07/22 20:09) Ua Culture If Indicated (08/07/22 20:19) Ed Iv/Invasive Line Start (08/07/22 20:44) Ns Iv 1000 Ml (Sodium Chloride 0.9%) (08/07/22 20:45) Ct Head Wo (08/07/22 20:44) Vital Signs/I&O 08/07/22 19:49 Pulse 84 Resp 16 B/P (MAP) 147/81 (103) Pulse Ox 98 O2 Delivery Room Air Blood Pressure Mean: 103 Progress Progress Note : Time: 20:37 Progress Note No fevers, labored breathing or apparent shortness of air. Suspect delirium versus hypertensive encephalopathy versus less likely stroke. With the chest pain getting better after nitroglycerin were going to recommend an overnight stay and consultation with cardiology. CT of the head. She has an NIH of 0 points at this time. Initial ECG Impression Date: Aug 07, 2022 Initial ECG Impression Time: 19:54 Initial ECG Rate: 82 Initial ECG Rhythm: Normal Sinus Initial ECG Intervals: Normal Initial ECG Impression: Normal Comment Normal sinus rhythm without clinically relevant ST elevation or depression. Diagnostic Imaging Diagonstic Imaging: Xray Plain Films/CT/US/NM/MRI: chest Comments [facility] [place] [place] NAME: ADAN ALAS [facility] REC#: [id number] PT STATUS: REG ER : 1940 PHYSICIAN: ELBA PITTMAN MD ADMIT DATE: 08/07/22/ER Draft Date of Exam:08/07/22 CHEST 1 VIEW, AP/PA ONLY HISTORY: Chest pain. TECHNIQUE: Frontal view of the chest. COMPARISON: None. FINDINGS: Lung volumes are normal. There is mild right basilar airspace opacity. There is no pleural effusion or pneumothorax. The cardiac silhouette is normal in size. There are calcified breast implants, bilaterally. There is calcific atherosclerosis of the aorta. IMPRESSION: Mild right basilar airspace opacity, may represent atelectasis or infiltrate. Dictated on workstation # [id number] Dict: 08/07/222037 Trans: 08/07/222040 [facility] [id number] Interpreted by: CIRILO RANDOLPH MD Electronically signed by: Reviewed: Reviewed by Me Diagonstic Imaging: CT Plain Films/CT/US/NM/MRI: head Comments [facility] [place] [place] NAME: ADAN ALAS [facility] REC#: [id number] PT STATUS: ADM IN : 1940 PHYSICIAN: ELBA PITTMAN MD ADMIT DATE: 08/07/22 Draft Date of Exam:08/07/22 CT HEAD WO PROCEDURE: CT head without contrast. TECHNIQUE: Multiple contiguous axial images were obtained through the brain without the use of intravenous contrast. Auto Exposure Controls were utilized during the CT exam to meet ALARA standards for radiation dose reduction. INDICATION: Altered mental status. COMPARISON: 03/01/2022. FINDINGS: The ventricles and cortical sulci are prominent. There is no midline shift or mass effect. No acute intracranial hemorrhage is seen. Areas of decreased attenuation are seen in the subcortical and periventricular white matter. These likely represent chronic microvascular disease. No CT evidence of acute territorial ischemia is seen. The calvarium is intact. The visible paranasal sinuses are clear. IMPRESSION: 1. No acute intracranial hemorrhage. No CT evidence of acute territorial ischemia. 2. Generalized parenchymal volume loss and findings of chronic microvascular disease. Dictated on workstation # [id number] Dict: 08/07/222111 Trans: 08/07/222117 [facility] [id number] Interpreted by: CIRILO RANDOLPH MD Electronically signed by: Reviewed: Reviewed by Me Departure Communication (Admissions) Time/Spoke to Admitting Phy: 21:48 Dr. HINOJOSA agrees to accept the patient with cardiac consultation Time/Spoke to Consulting Phy: 21:47 Discussed the case with Dr. Shah and he agrees to consult on the case. He recommends an addition of Lovenox 1 mg/kg. Impression Primary Impression: Chest pain Qualified Codes: R07.9 - Chest pain, unspecified Disposition: ADMITTED INPATIENT Condition: Stable Admissions Decision to Admit Reason: Admit from ER (General) Decision to Admit/Date: Aug 07, 2022 Time/Decision to Admit Time: 21:38 Departure-Patient Inst. Referrals: RIGOBERTO HINOJOSA DO (PCP/Family) Primary Care Physician Stroke Onset of Symptoms Date of Onset of Symptoms: Aug 07, 2022 Time of Symptom Onset: 08:00 Onset of Symptoms: Yes Symptoms onset unknown: Yes NIH Stroke Scale Assessment Select: Initial Level of Consciousness: 0=Alert (0), Level of Consciousness-Q uestions: 0=Answers both month/age (0), LOC Commands: 0=Performs both tasks (0), Gaze: Normal (0), Visual Michaels: 0=No visual loss (0), Facial Movement (Facial Paresis): 0=Normal symmetrical mnt (0), Motor Function-Arms Right: 0=No drift (0), Motor Function-Arms Left: 0=No drift (0), Motor Function-Legs Right: 0=No drift (0), Motor Function-Legs Left: 0=No drift (0), Limb Ataxia: 0=Absent (0), Sensory: 0=Normal:no loss (0), Best Language: 0=No aphasia (0), Dysarthria: 0=Normal (0), Extinction & Inattention: 0=No abnormality (0), Total: 0 Stroke Thrombolytic Exclusion Age 18 or Over: Yes Acute intenal hemorrhage: No History of CVA: No Uncontrolled Coagulation Defec: No Intracranial Hemorrhage: No Severe Hypertension: No GI or Bleed: No Subarachnoid Hemorrhage: No Intracranial Neoplasm/Aneurysm: No Oral Anticoagulants: No Surgery or Trauma: No Puncture of Non-Compressible V: No Recent CPR: No Diabetic Hemorrhagic Retinopat: No Organ Biopsy: No Recent Obstetric Delivery: No Glucose: No (115) Significant Hepatic Dysfunctio: No NIH Stoke Scale >22: No Bacterial Endocarditis: No Pericarditis: No Improving Symptoms: Yes Platelets: No TPA Contraindication: No IV - TPa Received IV - TPa Procedure Performed?: No (Well outside the window.) ELBA PITTMAN Aug 07, 2022 20:19
[2022-08-07 20:25] LABS: BASOPHILS % (AUTO) 0 % (0-10); EOSINOPHILS % (AUTO) 1 % (0-10); HEMATOCRIT 41 % (35-52); HEMOGLOBIN 13.2 g/dL (11.5-16.0); LYMPHOCYTES # (AUTO) 0.4 10^3/uL (1.0-4.0); LYMPHOCYTES % (AUTO) 8 % (12-44); MEAN CORPUSCULAR HEMOGLOBIN 27 pg (25-34); MEAN CORPUSCULAR HGB CONC 32 g/dL (32-36); MEAN CORPUSCULAR VOLUME 84 fL (80-99); MEAN PLATELET VOLUME 11.8 fL (9.0-12.2); MONOCYTES # (AUTO) 0.8 10^3/uL (0.0-1.0); MONOCYTES % (AUTO) 16 % (0-12); NEUTROPHILS # (AUTO) 3.8 10^3/uL (1.8-7.8); NEUTROPHILS % (AUTO) 74 % (42-75); PLATELET COUNT 189 10^3/uL (130-400); WHITE BLOOD COUNT 5.2 10^3/uL (4.3-11.0)
[2022-08-07 20:39] LABS: ALBUMIN 3.9 GM/DL (3.2-4.5); BILIRUBIN,TOTAL 1.6 MG/DL (0.1-1.0); CALCIUM 9.9 MG/DL (8.5-10.1); CREATININE SERUM 0.94 MG/DL (0.60-1.30); MAGNESIUM 1.9 MG/DL (1.6-2.4); POTASSIUM 4.3 MMOL/L (3.6-5.0); TOTAL PROTEIN 6.5 GM/DL (6.4-8.2)
[2022-08-07 20:40] LABS: INR 1.1 (0.8-1.4); PROTHROMBIN TIME PATIENT 14.2 SEC (12.2-14.7)
--- NOTE | 2022-08-07 20:42 | Diagnostic Imaging Report ---
HISTORY: Chest pain. TECHNIQUE: Frontal view of the chest. COMPARISON: None. FINDINGS: Lung volumes are normal. There is mild right basilar airspace opacity. There is no pleural effusion or pneumothorax. The cardiac silhouette is normal in size. There are calcified breast implants, bilaterally. There is calcific atherosclerosis of the aorta. IMPRESSION: Mild right basilar airspace opacity, may represent atelectasis or infiltrate. Dictated by: Dictated on workstation # [id number]
[2022-08-07] MEDS ORDERED: NS IV 1000 ML 1,000 ML IV SCH (20:45)
--- NOTE | 2022-08-07 21:19 | Diagnostic Imaging Report ---
PROCEDURE: CT head without contrast. TECHNIQUE: Multiple contiguous axial images were obtained through the brain without the use of intravenous contrast. Auto Exposure Controls were utilized during the CT exam to meet ALARA standards for radiation dose reduction. INDICATION: Altered mental status. COMPARISON: 03/01/2022. FINDINGS: The ventricles and cortical sulci are prominent. There is no midline shift or mass effect. No acute intracranial hemorrhage is seen. Areas of decreased attenuation are seen in the subcortical and periventricular white matter. These likely represent chronic microvascular disease. No CT evidence of acute territorial ischemia is seen. The calvarium is intact. The visible paranasal sinuses are clear. IMPRESSION: 1. No acute intracranial hemorrhage. No CT evidence of acute territorial ischemia. 2. Generalized parenchymal volume loss and findings of chronic microvascular disease. Dictated by: Dictated on workstation # [id number]
[2022-08-07] MEDS ORDERED: ENOXAPARIN 80 MG/0.8 ML (LOVENOX) SYR SC ONE (22:00)
[2022-08-07] MEDS ORDERED: NITROGLYCERIN 0.4 MG SL TABS BTL 25'S SL PRN (23:15)
[2022-08-07] MEDS ORDERED: ACETAMINOPHEN 325 MG TABLET PO PRN (23:15)
[2022-08-07] MEDS ORDERED: ONDANSETRON 4 MG/2 ML (SDV) Z0FRAN IVP PRN (23:15)
[2022-08-07] MEDS ORDERED: morphine INJ 4 MG/ML 1 ML (VIAL/SYRINGE) IV PRN (23:15)
[2022-08-07] MEDS: LACTATED RINGERS 1,000 ML IV SCH (23:33)
[2022-08-07 23:37] VITALS: BP 146/60
[2022-08-08] VITALS: BP 168/75
[2022-08-08 04:00] VITALS: BP 176/76
[2022-08-08 05:11] LABS: BASOPHILS % (AUTO) 0 % (0-10); EOSINOPHILS # (AUTO) 0.1 10^3/uL (0.0-0.3); EOSINOPHILS % (AUTO) 3 % (0-10); HEMATOCRIT 36 % (35-52); HEMOGLOBIN 11.3 g/dL (11.5-16.0); LYMPHOCYTES # (AUTO) 0.5 10^3/uL (1.0-4.0); LYMPHOCYTES % (AUTO) 16 % (12-44); MEAN CORPUSCULAR HEMOGLOBIN 27 pg (25-34); MEAN CORPUSCULAR HGB CONC 32 g/dL (32-36); MEAN CORPUSCULAR VOLUME 86 fL (80-99); MEAN PLATELET VOLUME 11.3 fL (9.0-12.2); MONOCYTES # (AUTO) 0.5 10^3/uL (0.0-1.0); MONOCYTES % (AUTO) 18 % (0-12); NEUTROPHILS # (AUTO) 1.7 10^3/uL (1.8-7.8); NEUTROPHILS % (AUTO) 62 % (42-75); PLATELET COUNT 132 10^3/uL (130-400); WHITE BLOOD COUNT 2.8 10^3/uL (4.3-11.0)
[2022-08-08 05:30] LABS: BUN/CREATININE RATIO 20; CARBON DIOXIDE 24 MMOL/L (21-32); CHLORIDE 107 MMOL/L (98-107); CHOLESTEROL 125 MG/DL (< 200); CREATININE SERUM 0.83 MG/DL (0.60-1.30); GFR ESTIMATED 71; GLUCOSE 81 MG/DL (70-105); HDL CHOLESTEROL 29 MG/DL (40-60); POTASSIUM 3.7 MMOL/L (3.6-5.0); SODIUM 141 MMOL/L (135-145); TRIGLYCERIDES 112 MG/DL (<150); VLDL CHOLESTEROL 22 MG/DL (5-40)
[2022-08-08] MEDS: LACTATED RINGERS 1,000 ML IV SCH ×2 (07:38→15:20)
[2022-08-08 07:52] VITALS: BP 184/80
--- NOTE | 2022-08-08 07:56 | Diagnostic Imaging Report ---
INDICATION: 82-year-old female with unstable angina, chest pain. COMPARISONS: 08/07/2022 FINDINGS: Single view chest shows the cardiac contour to be within normal limits. There is mild central venous congestion. There is a small hiatal hernia. There are few areas of atelectasis but no consolidations. There is aortic calcific atherosclerosis. Soft tissues and bony thorax are unremarkable. IMPRESSION: 1. Mild congestive heart failure. 2. Few scattered areas of atelectasis but no consolidations. 3. Small hiatal hernia. 4. Aortic calcific atherosclerosis. Dictated by: Dictated on workstation # [id number]
[2022-08-08] MEDS ORDERED: ASPIRIN E.C. 81 MG (ECOTRIN) TAB PO SCH (09:00)
[2022-08-08] MEDS ORDERED: ENOXAPARIN 80 MG/0.8 ML (LOVENOX) SYR SC SCH (09:00)
[2022-08-08] MEDS ORDERED: PANTOPRAZOLE 40 MG (PROTONIX) VIAL IV ONE (10:00)
[2022-08-08] MEDS ORDERED: LOSARTAN 25 MG (COZAAR) TAB PO SCH (10:30)
--- NOTE | 2022-08-08 10:30 | Consultation-Cardiology ---
HPI-Cardiology Cardiology Consultation Date of Consultation 08/08/22 Date of Admission Time Seen by Provider: 10:26 Indication: Chest pain HPI 82-year-old lady with history of aortic valve stenosis, mild coronary artery disease per cardiac catheterization done over 10 years ago. Patient was brought by EMS from the [facility] due to chest pain given nitroglycerin and aspirin b y EMT and reported improvement of her symptoms. On my evaluation patient did not know why she was in the hospital, thought that they move her to a different bed because they were painting the room. She denied any active chest pain or shortness of breath. No palpitation. No syncope. She received vaccination the day prior to her hospitalization. Home Medications & Allergies Allergies: Coded Allergies: Penicillins (Verified Allergy, Severe, ANAPHYLAXIS, 01/14/18) Per Dr. Hinojosa patient has had Cephalosporins in the past without issue Home Medication List Reviewed: Yes ZIE-Ifajxq-Tclxyg Hx Patient Social History Marital Status: Employed/Student: retired Smoking Status: Former Smoker Type Used: Cigarettes 2nd Hand Smoke Exposure: No Recent Hopitalizations: Yes (ASTHMA ATTACK-2004) Have you traveled recently?: No Alcohol Use?: No Immunizations Up To Date Date of Pneumonia Vaccine: Sep 09, 2016 Date of Influenza Vaccine: Aug 06, 2022 Past Medical History Discussed below Family Medical History Family Medical Hx Noncontributory Review of Systems-General Review of Systems Constitutional: No chills, No diaphoresis; malaise, weakness EENTM: see HPI, no symptoms reported Respiratory: see HPI; No cough, No dyspnea on exertion, No hemoptysis, No orthopnea, No phlegm, No short of breath, No stridor, No wheezing, No other Cardiovascular: see HPI, chest pain; No edema, No Hx of Intervention, No palpitations, No syncope, No vascular heart diseas, No other Gastrointestinal: no symptoms reported, see HPI Genitourinary: no symptoms reported, see HPI Musculoskeletal: No back pain, No joint pain Skin: no symptoms reported, see HPI Psychiatric/Neurological: No Symptoms Reported, See HPI All Other Systems Reviewed Negative Unless Noted: Yes Reviewed Test Results Reviewed Test Results Lab Laboratory Tests Test 08/07/22 19:55 08/08/22 05:00 Range/Units White Blood Count 5.2 2.8 L 4.3-11.0 10^3/uL Red Blood Count 4.89 4.15 3.80-5.11 10^6/uL Hemoglobin 13.2 11.3 L 11.5-16.0 g/dL Hematocrit 41 36 35-52 % Mean Corpuscular Volume 84 86 80-99 fL Mean Corpuscular Hemoglobin 27 27 25-34 pg Mean Corpuscular Hemoglobin Concent 32 32 32-36 g/dL Red Cell Distribution Width 17.1 H 17.0 H 10.0-14.5 % Platelet Count 189 132 130-400 10^3/uL Mean Platelet Volume 11.8 11.3 9.0-12.2 fL Immature Granulocyte % (Auto) 1 1 % Neutrophils (%) (Auto) 74 62 42-75 % Lymphocytes (%) (Auto) 8 L 16 12-44 % Monocytes (%) (Auto) 16 H 18 H 0-12 % Eosinophils (%) (Auto) 1 3 0-10 % Basophils (%) (Auto) 0 0 0-10 % Neutrophils # (Auto) 3.8 1.7 L 1.8-7.8 10^3/uL Lymphocytes # (Auto) 0.4 L 0.5 L 1.0-4.0 10^3/uL Monocytes # (Auto) 0.8 0.5 0.0-1.0 10^3/uL Eosinophils # (Auto) 0.0 0.1 0.0-0.3 10^3/uL Basophils # (Auto) 0.0 0.0 0.0-0.1 10^3/uL Immature Granulocyte # (Auto) 0.0 0.0 0.0-0.1 10^3/uL Prothrombin Time 14.2 12.2-14.7 SEC INR Comment 1.1 0.8-1.4 Activated Partial Thromboplast Time 29 24-35 SEC Sodium Level 139 141 135-145 MMOL/L Potassium Level 4.3 3.7 3.6-5.0 MMOL/L Chloride Level 102 107 98-107 MMOL/L Carbon Dioxide Level 26 24 21-32 MMOL/L Anion Gap 11 10 5-14 MMOL/L Blood Urea Nitrogen 19 H 17 7-18 MG/DL Creatinine 0.94 0.83 0.60-1.30 MG/DL Estimat Glomerular Filtration Rate 61 71 BUN/Creatinine Ratio 20 20 Glucose Level 112 H 81 70-105 MG/DL Calcium Level 9.9 9.0 8.5-10.1 MG/DL Corrected Calcium 10.0 8.5-10.1 MG/DL Magnesium Level 1.9 1.6-2.4 MG/DL Total Bilirubin 1.6 H 0.1-1.0 MG/DL Aspartate Amino Transf (AST/SGOT) 13 5-34 U/L Alanine Aminotransferase (ALT/SGPT) 12 0-55 U/L Alkaline Phosphatase 77 40-136 U/L Myoglobin 86.6 10.0-92.0 NG/ML Troponin I < 0.028 < 0.028 <0.028 NG/ML B-Type Natriuretic Peptide 969.4 H <100.0 PG/ML Total Protein 6.5 6.4-8.2 GM/DL Albumin 3.9 3.2-4.5 GM/DL Triglycerides Level 112 <150 MG/DL Cholesterol Level 125 < 200 MG/DL LDL Cholesterol Direct 73 1-129 MG/DL VLDL Cholesterol 22 5-40 MG/DL HDL Cholesterol 29 L 40-60 MG/DL Physical Exam Physical Exam Vital Signs Vital Signs - First Documented 08/07/22 08/07/22 19:49 22:41 Temp 36.7 Pulse 84 Resp 16 B/P (MAP) 147/81 (103) Pulse Ox 98 O2 Delivery Room Air O2 Flow Rate 2.00 Capillary Refill : Less Than 3 Seconds Height, Weight, BMI Height: 5'2.00" Weight: 160lbs. 0oz. 72.489482iy; 27.85 BMI Method:Stated General Appearance: No Apparent Distress, WD/WN HEENT: PERRL/EOMI, TMs Normal, Pharynx Normal, Moist Mucous Membranes Neck: Full Range of Motion, Normal Inspection, Non Tender Respiratory: Lungs Clear, Normal Breath Sounds, No Accessory Muscle Use, No Respiratory Distress Cardiovascular: Regular Rate, Rhythm, No Edema, Normal Peripheral Pulses, Systolic Murmur Gastrointestinal: Normal Bowel Sounds, No Organomegaly, Soft Extremity: Normal Capillary Refill, Normal Inspection Neurologic/Psychiatric: Alert; No Oriented x3 (Oriented to person and place) Skin: Normal Color, Warm/Dry A/P-Cardiology Admission Diagnosis Chest pain Aortic valve stenosis Hypertension Hyperlipidemia. Assessment/Plan Chest pain resembling angina, EKG and cardiac enzymes did not show any acute abnormality Probably chest pain secondary to severe aortic valve stenosis. Conservative management is recommended, discussed the management plan with the and with Dr. Hinojosa. Okay for discharge from cardiology standpoint Severe aortic valve stenosis, deteriorated compared to the study of 2019. 2D echocardiogram done on August 08, 2022 showing ejection fraction 50 to 55%, biatrial dilatation and prominent right heart chambers. Severe aortic valve stenosis with a valve area 0.8 cm, pulmonary hypertension with PA pressure 45 to 50 mmHg Due to her underlying dementia I recommend conservative management, overall patient is not symptomatic at this point. Hypertension, recommend low-dose beta-jon and ARB and evaluate tolerance and response Hyperlipidemia, lipid profile showed total cholesterol 125, triglyceride 112, LDL 73. Continue to monitor Advanced dementia. Patient is a [facility] resident. Clinical Quality Measures AMI/AHF: ASA po Prior to arrival: Yes (324 ASA PO) Stroke: Date of last known well: Aug 07, 2022 Time of last known well: 08:00 Symptoms onset unknown: Yes JASPAL ROACH MD Aug 08, 2022 10:30
[2022-08-08] MEDS ORDERED: CEPH250C PO (11:09)
[2022-08-08] MEDS ORDERED: ESCI5TAB16 PO (11:09)
[2022-08-08] MEDS ORDERED: LOSA25TA41 PO (11:09)
--- NOTE | 2022-08-08 11:17 | Discharge Summary ---
Diagnosis/Chief Complaint Date of Admission Aug 07, 2022 at 21:53 Date of Discharge Discharge Date: Aug 08, 2022 Discharge Diagnosis 1. Chest Pain--likely from sever aortic stenosis 2. Severe Aortic Stenosis--medical management 3. Hypertension--continue metoprolol and add losartan 4. GERD--protonix now to cover for GI etiology then resume protonix on discharge 5. Advanced Dementia 6. History of Recurrent UTI--check UA and treat if acute infection, otherwise resume prophylactic keflex on discharge 7. Lethargy--easier to arouse today and answering questions, may be post-flu shot but will DC alprazolam as well in case she received a dose of this as daughter feels she was acting like she had been given a sedative 8. COPD--nighttime oxygen recently discontinued because she was not keeping the oxygen on at night and her daughter is considering hospice Discharge Summary Hospital Course Was the Problem List Reviewed?: Yes Hospital Course This is a 82 year old female with severe dementia who resides at [facility] who was brought to the emergency room with chest pain. She was given a low dose aspirin and nitro and had no further chest pain. She had been lethargic earlier in the day but had also had her flu shot the day before. Her EKG showed no acute changes and her cardiac enzymes were negative but she was admitted for repeat cardiac enzymes, ECHO and cardiology consult. She has a known history of aortic stenosis and mild CAD by cardiac catheterization done 10 years ago. She was admitted to the cardiac stepdown floor and monitored on telemetry. She had no further chest pain and remained in a normal sinus rhythm. An updated echocardiogram was done which does show some worsening of her aortic valve stenosis but the family as well as myself and cardiology agree that medical management is the best option for this patient with her advanced elda ntia. She will continue metoprolol and low dose losartan will be added on discharge. She will continue on protonix for GI etiology and she will have a urinalysis done prior to discharge due to her lethargy and history of recurrent UTIs. She is sleeping on the day of discharge but awakens easily and answers questions. I discussed the plan with her daughter and she is in agreement with medical management and discharge back to assisted living. Labs Laboratory Tests 08/07/22 19:55: Red Cell Distribution Width 17.1H, Lymphocytes (%) (Auto) 8L, Monocytes (%) (Auto) 16H, Lymphocytes # (Auto) 0.4L, Blood Urea Nitrogen 19H, Glucose Level 112H, Total Bilirubin 1.6H, B-Type Natriuretic Peptide 969.4H 08/08/22 05:00: Red Cell Distribution Width 17.0H, Monocytes (%) (Auto) 18H, Lymphocytes # (Auto) 0.5L, White Blood Count 2.8L, Hemoglobin 11.3L, Neutrophils # (Auto) 1.7L , HDL Cholesterol 29L 08/08/22 10:51: Procedures None. Discharge Physical Examination Allergies: Coded Allergies: Penicillins (Verified Allergy, Severe, ANAPHYLAXIS, 01/14/18) Per Dr. Hinojosa patient has had Cephalosporins in the past without issue Vitals & I&Os Vital Signs Date Time Temp Pulse Resp B/P (MAP) Pulse Ox O2 Delivery O2 Flow Rate FiO2 08/08/22 07:52 36.3 70 18 184/80 (114) 95 08/08/22 07:03 Nasal Cannula 2.00 General Appearance: Alert Respiratory: Clear to Auscultation Cardiovascular: Regular Rate, Other (holosystolic murmur) Abdominal: Normal Bowel Sounds, Soft, Other (epigastric TTP) Extremities: No Clubbing, No Cyanosis, No Edema Psych/Mental Status: Other (lethargy) Discharge Home Medications Reviewed and agree with Discharge Medication list on patient's Discharge Instruction sheet Instructions to Patient/Family Please see electronic discharge instructions given to patient. Clinical Quality Measures AMI/AHF: ASA po Prior to arrival: Yes (324 ASA PO) Stroke: Date of last known well: Aug 07, 2022 Time of last known well: 08:00 Symptoms onset unknown: Yes RIGOBERTO HINOJOSA DO Aug 08, 2022 11:17
[2022-08-08 11:53] VITALS: BP 166/82
[2022-08-08] MEDS ORDERED: PANTOPRAZOLE 40 MG (PROTONIX) TAB PO NR (12:00)
--- NOTE | 2022-08-08 13:31 | Physical Therapy Evaluation ---
PT Evaluation-General Medical Diagnosis Admission Date Aug 07, 2022 at 21:53 Medical Diagnosis: chest pain Onset Date: Aug 07, 2022 Therapy Diagnosis Therapy Diagnosis: impaired mobility Height/Weight Height (Feet): 5 Height (Inches): 2.00 Weight (Pounds): 160 Weight (Ounces): 0 Precautions Precautions/Isolations: Fall Prevention, Standard Precautions Referral Physician: Ashish Reason for Referral: Evaluation/Treatment Medical History Pertinent Medical History: COPD, Dementia History of Falls (past yr): Unknown Prior Surgery (last 100 days): Unknown Additional Medical History Past Medical History Surgeries: Yes (KIDNEY STONE REMOVAL; CARPAL TUNNEL SURGERY; HYSTERECTOMY) Hysterectomy, Orthopedic, Renal Respiratory: Yes (COPD) COPD Currently Using CPAP: No Currently Using BIPAP: No Cardiac: Yes High Cholesterol, Hypertension Neurological: Yes Dementia Reproductive Disorders: Yes Genitourinary: Yes Kidney Stones, UTI-Chronic Gastrointestinal: Yes Gastroesophageal Reflux, Diverticulosis Musculoskeletal: No Endocrine: No HEENT: Yes Hearing Impairment: Hard of Hearing Cancer: No Psychosocial: No Integumentary: No Blood Disorders: No Social History Home: [facility] Prior Prior Level of Function SCALE: Activities may be completed with or without assistive devices. 4-Skwrzvhbzh-aenoniy completes the activity by him/herself with no assistance from a helper. 5-Set-up or Clean-up Assistance-helper sets up or cleans up; patient completes activity. [place] assists only prior to or following the activity. 4-Supervision or Touching Assistance-helper provides verbal cues and/or touching/steadying and/or contact guard assistance as patient completes activity. Assistance may be provided throughout the activity or intermittently. 3-Partial/Moderate Assistance-helper does LESS THAN HALF the effort. [place] lifts, holds or supports trunk or limbs, but provides less than half the effort. 2-Substantial/Maximal Assistance-helper does MORE THAN HALF the effort. [place] lifts or holds trunk or limbs and provides more than half the effort. 0-Vwrhhuvtl-objzbf does ALL the effort. Patient does none of the effort to complete the activity. Or, the assistance of 2 or more helpers is required for the patient to complete the activity. If activity was not attempted, code reason: 7-Patient Refused. 9-Not Applicable-not attempted and the patient did not perform the activity before the current illness, exacerbation or injury. 10-Not Attempted due to Environmental Limitations-(lack of equipment, weather restraints, etc.). 88-Not Attempted due to Medical Conditions or Safety Concerns. unknown PT Evaluation-Current Subjective Patient in bed pre tx, agrees to PT, very confused, has no complaints of pain. Pt/Family Goals none stated Objective Patient Orientation: Person, Confused Attachments: Oxygen (nasal canula on patient but turned off at the wall, O2 98%) ROM/Strength ROM Lower Extremities WNL Strength Lower Extremities unable to test, patient cannot follow directions Sensory Hearing: Functional Sensation Right Lower Extremit: Intact Sensation Left Lower Extremity: Intact Transfers Roll Left to Right (QC): 3 Sit to Lying (QC): 3 Lying to Sitting/Side of Bed(Q: 3 Sit to Stand (QC): 3 Min assist for supine <-> sit and sit <-> stand, patient needs a lot of cues for safety and positioning Gait Does the Patient Walk?: Yes Walk 10 feet (QC): 3 Distance: 10' Gait Assistive Device: FWW Comments/Gait Description Patient ambulated 10' with a rolling walker with min assist, patient needs as sist guiding the walker, cues to stay close to the walker, cues for safety and foot placement Balance Sitting Static: Fair Sitting Dynamic: Fair Standing Static: Fair Standing Dynamic: Fair Assessment/Needs Patient back to bed post tx with nurse call, phone, tray, bed alarm on. Patient has impaired mobility and safety awareness. Needs min assist from one person for all aspects of functional mobility. Rehab Potential: Fair PT General Road Supervisor Goals Jail Goals PT General Road Supervisor Goals Time Frame: Aug 15, 2022 Roll Left & Right (QC): 4 Sit to Lying (QC): 4 Lying-Sitting on Side/Bed(QC): 4 Sit to Stand (QC): 4 Chair/Qjp-tz-Wpfka Xfer(QC): 4 Walk 10 feet (QC): 4 Walk 50ft with 2 Turns (QC): 4 PT Plan Problem List Problem List: Activity Tolerance, Functional Strength, Safety, Balance, Gait, Transfer, Bed Mobility, ROM Treatment/Plan Treatment Plan: Continue Plan of Care Treatment Plan: Bed Mobility, Education, Functional Activity Danny, Functional Strength, Gait, Safety, Therapeutic Exercise, Transfers Treatment Duration: Aug 15, 2022 Frequency: 6 times per week Estimated Hrs Per Day: .25 hour per day Patient and/or Family Agrees t: Yes Safety Risks/Education Patient Education: Gait Training, Transfer Techniques, Correct Positioning, Safety Issues Teaching Recipient: Patient Teaching Methods: Demonstration, Discussion Response to Teaching: Reinforcement Needed Discharge Recommendations Plan Patient will perform bed mobility and transfer training, balance and endurance training, functional strengthening, gait training, and education, to improve functional mobility and independence at home. Therapy Discharge Recommendati: Other, See Comments (NH) Time/GCodes Time In: 1255 Time Out: 1310 Total Billed Treatment Time: 15 Total Billed Treatment 1 visit DACIA GAR PT Aug 08, 2022 13:31
--- NOTE | 2022-08-08 14:23 | Occupational Therapy Eval ---
OT Evaluation-General/PLF Medical Diagnosis Admission Date Aug 07, 2022 at 21:53 Medical Diagnosis: chest pain Onset Date: Aug 07, 2022 Therapy Diagnosis Therapy Diagnosis: Reduced ADL status Height/Weight Height (Feet): 5 Height (Inches): 2.00 Weight (Pounds): 160 Weight (Ounces): 0 Precautions Precautions/Isolations: Fall Prevention, Standard Precautions Referral Physician: Ashish Referral Reason: Evaluation/Treatment Medical History Pertinent Medical History: COPD, Dementia Current History Pt arrived by EMS with c/o of chest pain. Pt is a poor historian and was very confused during eval. Unsure as to what is factual during eval questions. Pt rep orted falling at work and loosing consciousness and being brought into the hospital. She also reports that she lives in a hotel and was kicked out of [facility] due to insurance. She stated that she was independent with all ADLs. Reviewed History: Yes Social History Home: Assisted Living (per chart review) ADL-Prior Level of Function SCALE: Activities may be completed with or without assistive devices. 2-Iuskmltkeq-juhpwjy completes the activity by him/herself with no assistance from a helper. 5-Set-up or Clean-up Assistance-helper sets up or cleans up; patient completes activity. [place] assists only prior to or following the activity. 4-Supervision or Touching Assistance-helper provides verbal cues and/or touching/steadying and/or contact guard assistance as patient completes activi ty. Assistance may be provided throughout the activity or intermittently. 3-Partial/Moderate Assistance-helper does LESS THAN HALF the effort. [place] lifts, holds or supports trunk or limbs, but provides less than half the effort. 2-Substantial/Maximal Assistance-helper does MORE THAN HALF the effort. [place] lifts or holds trunk or limbs and provides more than half the effort. 5-Vtoitvdsf-kgdjep does ALL the effort. Patient does none of the effort to complete the activity. Or, the assistance of 2 or more helpers is required for the patient to complete the activity. If activity was not attempted, code reason: 7-Patient Refused. 9-Not Applicable-not attempted and the patient did not perform the activity before the current illness, exacerbation or injury. 10-Not Attempted due to Environmental Limitations-(lack of equipment, weather restraints, etc.). 88-Not Attempted due to Medical Conditions or Safety Concerns. Self Care: Unknown Functional Cognition: Needed Some Help OT Current Status Subjective Pt laying in bed upon arrival. She agrees to a therapy eval. Appearance Pt left lying in bed with all needs within reach. Mental Status/Objective Patient Orientation: Person, Confused Attachments: IV, Telemetry Current Upper Extremity ROM ~150 ROM shoulder flexion Upper Extremity Strength General Farmworker strength: WFL ADL-Treatment Eating (QC): 5 On/Off Footwear (QC): 1 Mod assist for bed mobility to sit EOB. Pt sat EOB with min-mod assist for balance. Cues for correcting posture and staying upright were given with little follow through. ADL tasks were deemed unsafe to complete at this time secondary to balance deficits and PTs eval stating poor safety management of walker with ambulation. Anticipate assist needed with adls due to poor balance. Unsure how much assist she has at baseline. Education OT Patient Education: Correct positioning, Energy conservation, Progress toward Goal/Update tx plan, Purpose of tx/functional activities, Rehab process, Safety issues Teaching Recipient: Patient Teaching Methods: Discussion Response to Teaching: Verbalize Understanding, Unable to Return Demonstration, Reinforcement Needed OT Custodial Goals [employer] Floorperson Goals Time Frame: Aug 20, 2022 Toileting Hygiene (QC): 3 Shower/Bathe Self (QC): 3 Upper Body Dressing (QC): 4 Lower Body Dressing (QC): 3 On/Off Footwear (QC): 3 Additional Goals: 1-Demonstrate ADL Tasks, 2-Verbalize Understanding, 3- ImproveStrength/Danny 1=Demonstrate adherence to instructed precautions during ADL tasks. 2=Patient will verbalize/demonstrate understanding of assistive devices/modifications for ADL. 3=Patient will improve strength/tolerance for activity to enable patient to perform ADL's. OT Education/Plan Problem List/Assessment Assessment: Decreased Activ Tolerance, Decreased Safety Aware, Decreased UE Strength, Dependent Transfers, Impaired Bed Mobility, Impaired Cognition, Impaired Coordination, Impaired Funct Balance, Impaired I ADL's, Impaired Self- Care Skills, Restricted Funct UE ROM Discharge Recommendations Plan/Recommendations: Continue POC Therapy Discharge Recommendati: Assisted Living, Bath Aide Comment ongoing assessment Treatment Plan/Plan of Care Treatment,Training & Education: Yes Patient would benefit from OT for education, treatment and training to promote independence in ADL's, mobility, safety and/or upper extremity function for ADL's. Plan of Care: ADL Retraining, Cognitive Retraining, Functional Mobility, Group Exercise/Act as Ind, UE Funct Exercise/Act Treatment Duration: Aug 20, 2022 Frequency: 3 times per week (3-5x/week) Estimated Hrs Per Day: .25 hour per day Agreement: Yes Rehab Potential: Fair Time/GCodes Start Time: 13:37 Stop Time: 13:48 Total Time Billed (hr/min): 11 Billed Treatment Time 1 visit Graciela Beck OT Aug 08, 2022 14:23
== END 2022-08-08 14:16 ==
LOC: EDUNIT# 19:46 → ER 19:47 → 4TH 21:00 → UNDOADMIN 21:00 → CSD 21:53 → UNDOADMOB 21:53 → CSD 23:06 → UNDODISOB 08-08 14:16
PROVIDERS: ADMIT Family Medicine; ATTEND Family Medicine
DX: R07.9 Chest pain, unspecified (principal); I10 Essential (primary) hypertension; K21.9 Gastro-esophageal reflux disease without esophagitis; F03.90 Unspecified dementia, unspecified severity, without behavioral disturbance, psychotic disturbance, mood disturbance, and anxiety; Z87.440 Personal history of urinary (tract) infections; J44.9 Chronic obstructive pulmonary disease, unspecified; Z79.899 Other long term (current) drug therapy; I35.2 Nonrheumatic aortic (valve) stenosis with insufficiency
CPT/HCPCS: 70450; 71045 ×2; 80048; 80053; 80061; 82947; 83735; 83874; 83880; 84484 ×2; 85025 ×2; 85610; 85730; 93005 ×2; 94760; 96372; 97162; 97166; 99284; C8929; 36415; 93306

== ENCOUNTER 2023-07-05 04:42 | Inpatient (IN) | payer MEDICARE ==
[~2023-07-05] VITALS: Ht 157 cm; Wt 55.4 kg
[~2023-07-05 04:42] MED LIST changes: +CEPH250C PO; +LOSA25TA41 PO
[2023-07-05] MEDS ORDERED: methylPREDNISolone INJ 125 MG VIAL IV STA (04:43)
--- NOTE | 2023-07-05 04:59 | ED Respiratory ---
General Stated Complaint: WHEEZING Source: patient (PT WITH HISTORY OF DEMENTIA BUT IS ABLE TO ANSWER BASIC QUESTIONS ABOUT HER SYMPTOMS), skilled nursing records, old records History of Present Illness Date Seen by Provider: Jul 05, 2023 Time Seen by Provider: 04:45 Initial Comments PT ARRIVES VIA EMS FROM VIA [facility] PT WITH COPD AND CONTINUES TO SMOKE 1/2 PPD--USED TO SMOKE 1 PPD HALF-WAY NURSE WALKED BY PT'S ROOM AND HEARD HER WHEEZING. SHE GAVE ALBUTEROL NEB TREATMENT WITHOUT SIGNIFICANT IMPROVEMENT SO CALLED [facility] O2 SATS 96% ON PT'S NORMAL O2 AT 2L/NC PT STATES SHE JUST STARTED WHEEZING TONIGHT PT DENIES FEVER/SWEATS/CHILLS PT DENIES ANY INCREASE IN CHRONIC COUGH OR ANY SPUTUM PRODUCTION PT DENIES CHEST PAIN OR PAIN WITH BREATHING NO SWELLING IN LEGS/FEET OR PAIN IN CALVES PCP: DR. HINOJOSA Allergies and Home Medications Allergies Coded Allergies: Penicillins (Verified Allergy, Severe, ANAPHYLAXIS, 01/14/18) Per Dr. Hinojosa patient has had Cephalosporins in the past without issue Patient Home Medication List Home Medication List Reviewed: Yes Aspirin (Aspirin EC) 81 Mg Tablet.dr, 81 MG PO DAILY, (Reported) Entered as Reported by: DOLLY SIDDIQUI on 11/29/18 1620 Atorvastatin Calcium (Atorvastatin Calcium) 40 Mg Tablet, 40 MG PO HS, (Reported) Entered as Reported by: DOLLY SIDDIQUI on 01/12/18 1113 Budesonide/Formoterol Fumarate (Symbicort 160-4.5 Mcg Inhaler) 10.2 Gm Hfa.aer.ad, 2 PUFF IH BID Prescribed by: RIGOBERTO HINOJOSA on 12/03/18 1327 Cephalexin (Cephalexin) 250 Mg Capsule, 250 MG PO DAILY Prescribed by: RIGOBERTO HINOJOSA on 08/08/22 1109 Escitalopram Oxalate (Escitalopram Oxalate) 5 Mg Tablet, 5 MG PO DAILY Prescribed by: RIGOBERTO HINOJOSA on 08/08/22 1109 Ipratropium/Albuterol Sulfate (Iprat-Albut 0.5-3(2.5) mg/3 ml) 3 Ml Ampul.neb, 3 ML INH QID Prescribed by: RIGOBERTO HINOJOSA on 12/03/18 1326 Losartan Potassium (Losartan Potassium) 25 Mg Tablet, 25 MG PO DAILY Prescribed by: RIGOBERTO HINOJOSA on 08/08/22 1109 Pantoprazole Sodium (Pantoprazole Sodium) 20 Mg Tablet., 20 MG PO DAILY, (Reported) Entered as Reported by: DOLLY SIDDIQUI on 11/29/18 1616 Review of Systems Review of Systems Constitutional: no symptoms reported EENTM: no symptoms reported Respiratory: see HPI Cardiovascular: no symptoms reported Gastrointestinal: no symptoms reported Genitourinary: no symptoms reported Musculoskeletal: no symptoms reported Skin: no symptoms reported Psychiatric/Neurological: No Symptoms Reported Hematologic/Lymphatic: No Symptoms Reported Immunological/Allergic: no symptoms reported Past Vaacmzz-Ifalwi-Eohruk Hx Patient Social History Tobacco Use?: Yes Tobacco type used: Cigarettes Smoking Status: Current Everyday Smoker Substance use?: No Alcohol Use?: No Seasonal Allergies Seasonal Allergies: No Past Medical History Surgeries: Yes (KIDNEY STONE REMOVAL; CARPAL TUNNEL SURGERY; HYSTERECTOMY) Hysterectomy, Orthopedic, Renal Respiratory: Yes (COPD O2 DEPENDENT AT 2L/NC) COPD Currently Using CPAP: No Currently Using BIPAP: No Cardiac: Yes High Cholesterol, Hypertension Neurological: Yes Dementia Reproductive Disorders: Yes Genitourinary: Yes Kidney Stones, UTI-Chronic Gastrointestinal: Yes Gastroesophageal Reflux, Diverticulosis Musculoskeletal: No Endocrine: No HEENT: Yes Hearing Impairment: Hard of Hearing Cancer: No Psychosocial: No Integumentary: No Blood Disorders: No Family Medical History SOCIAL HISTORY: -SMOKING--SMOKED 1 PPD IN PAST, NOW SMOKES 1/2 PPD--EVEN IN HALF-WAY -ETOH DENIES USE -DRUGS DENIES USE Physical Exam Vital Signs - First Documented 07/05/23 04:44 Temp 36.3 Pulse 63 Resp 24 B/P (MAP) 141/82 (101) Pulse Ox 94 O2 Delivery Room Air Capillary Refill : Height: 5'2.00" Weight: 160lbs. 0oz. [id number]; 27.85 BMI Method:Stated General Appearance: WD/WN, no apparent distress, other (PT TALKING NON-STOP IN FULL SENTENCES, LAUGHING, SMILING, VERY PLEASANT. SHE DOES NOT APPEAR TO BE IN ANY DISCOMFORT OR DISTRESS. STRONG ODOR OF CIGARETTES. 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 INITIALLY STATED SHE IS IN [place]. THEN LATER STATES SHE IS IN [place]. PT IS AT NORMAL BASELINE. ) Skin: normal color, warm/dry Focused Exam Sepsis Stage: Ruled Out Reason for ruling out sepsis: DOES NOT MEET CRITERIA Possible Source: Pulmonary Lactate Level 07/05/23 04:50: Lactic Acid Level 1.30 Time of Focused Exam: 05:30 Respiratory: Wheezing Cardiovascular: Regular Rate, Rhythm Skin: normal color, warm/dry Lactic Acid Level Laboratory Tests Test 07/05/23 04:50 Lactic Acid Level 1.30 MMOL/L (0.50-2.00) Within 3hrs of presentation: Admin ABX, Blood cultures prior to ABX's, Focus exam, Lactate level, Other (NO FLUIDS PT DOES NOT MEET SEPSIS CRITERIA AND HAS CHF) Progress/Results/Core Measures Suspected Sepsis SIRS Temperature: Pulse: Respiratory Rate: Laboratory Tests 07/05/23 04:50: White Blood Count 8.0 Blood Pressure / Mean: 07/05/23 04:50: Lactic Acid Level 1.30 Laboratory Tests 07/05/23 04:50: Creatinine 0.87, INR Comment 1.0, Platelet Count 209, Total Bilirubin 0.5 Results/Orders Lab Results Laboratory Tests Test 07/05/23 04:40 07/05/23 04:50 Range/Units Influenza Type A (RT-PCR) Not Detected Not Detecte Influenza Type B (RT-PCR) Not Detected Not Detecte SARS-CoV-2 RNA (RT-PCR) Not Detected Not Detecte White Blood Count 8.0 4.3-11.0 10^3/uL Red Blood Count 4.34 3.80-5.11 10^6/uL Hemoglobin 12.4 11.5-16.0 g/dL Hematocrit 39 35-52 % Mean Corpuscular Volume 90 80-99 fL Mean Corpuscular Hemoglobin 29 25-34 pg Mean Corpuscular Hemoglobin Concent 32 32-36 g/dL Red Cell Distribution Width 14.6 H 10.0-14.5 % Platelet Count 209 130-400 10^3/uL Mean Platelet Volume 12.5 H 9.0-12.2 fL Immature Granulocyte % (Auto) 1 % Neutrophils (%) (Auto) 75 42-75 % Lymphocytes (%) (Auto) 11 L 12-44 % Monocytes (%) (Auto) 11 0-12 % Eosinophils (%) (Auto) 3 0-10 % Basophils (%) (Auto) 0 0-10 % Neutrophils # (Auto) 6.0 1.8-7.8 10^3/uL Lymphocytes # (Auto) 0.8 L 1.0-4.0 10^3/uL Monocytes # (Auto) 0.9 0.0-1.0 10^3/uL Eosinophils # (Auto) 0.2 0.0-0.3 10^3/uL Basophils # (Auto) 0.0 0.0-0.1 10^3/uL Immature Granulocyte # (Auto) 0.1 0.0-0.1 10^3/uL Prothrombin Time 13.2 12.2-14.7 SEC INR Comment 1.0 0.8-1.4 Activated Partial Thromboplast Time 27 24-35 SEC Sodium Level 142 135-145 MMOL/L Potassium Level 4.2 3.6-5.0 MMOL/L Chloride Level 109 H 98-107 MMOL/L Carbon Dioxide Level 26 21-32 MMOL/L Anion Gap 7 5-14 MMOL/L Blood Urea Nitrogen 20 H 7-18 MG/DL Creatinine 0.87 0.60-1.30 MG/DL Estimat Glomerular Filtration Rate 66 BUN/Creatinine Ratio 23 Glucose Level 93 70-105 MG/DL Lactic Acid Level 1.30 0.50-2.00 MMOL/L Calcium Level 9.3 8.5-10.1 MG/DL Corrected Calcium 9.5 8.5-10.1 MG/DL Magnesium Level 1.9 1.6-2.4 MG/DL Total Bilirubin 0.5 0.1-1.0 MG/DL Aspartate Amino Transf (AST/SGOT) 15 5-34 U/L Alanine Aminotransferase (ALT/SGPT) 10 0-55 U/L Alkaline Phosphatase 58 40-136 U/L Troponin I 0.060 H <0.028 NG/ML B-Type Natriuretic Peptide 994.2 H <100.0 PG/ML Total Protein 6.2 L 6.4-8.2 GM/DL Albumin 3.8 3.2-4.5 GM/DL My Orders Orders - MARISSA LUX DO Ed Iv/Invasive Line Start (07/05/23 04:43) Ekg Tracing (07/05/23 04:43) O2 (07/05/23 04:43) Monitor-Rhythm Ecg Trace Only (07/05/23 04:43) Chest 1 View, Ap/Pa Only (07/05/23 04:43) Bnp [place] (07/05/23 04:43) Cbc With Automated Diff (07/05/23 04:43) Comprehensive Metabolic Panel (07/05/23 04:43) Lactic Acid Analyzer (07/05/23 04:43) Magnesium (07/05/23 04:43) Protime With Inr (07/05/23 04:43) Partial Thromboplastin Time (07/05/23 04:43) Troponin I Gabriella (07/05/23 04:43) Covid 19 Inhouse Test (07/05/23 04:43) Sputum Culture (07/05/23 04:43) Ed Iv/Invasive Line Start (07/05/23 04:43) Vital Signs Adult Sepsis Patie Q15M (07/05/23 04:43) Remove Rings In Anticipation O (07/05/23 04:43) Influenza A And B By Pcr (07/05/23 04:43) Methylprednisolone Sod Succ (Methylpredn (07/05/23 04:43) Ipratropium/Albuterol Inh Soln (Ipratrop (07/05/23 05:00) Dexamethasone Injection (Decadron Injec (07/05/23 05:00) Rt Request For Service (07/05/23 04:47) Svn Small Volume Nebulizer (07/05/23 04:47) Albuterol Pre-Mix Nebs (Rt) (Albuterol (07/05/23 05:13) Svn Small Volume Nebulizer (07/05/23 05:13) Cefepime Injection (Cefepime Injection) (07/05/23 05:30) Furosemide Injection (Furosemide Injec (07/05/23 06:00) Catheter(Urinary) Insert & Ass 03,15 (07/05/23 05:51) Lidocaine 2% (Urojet) (Lidocaine 2% (Uro (07/05/23 06:00) Ed Admission (Communication) (07/05/23 05:53) Medications Given in ED Current Medications Medications Dose Ordered Sig/Alexandro Route Start Time Stop Time Status Last Admin Dose Admin Albuterol/ Ipratropium 3 ml ONCE ONCE INH 07/05/23 05:00 07/05/23 05:01 DC 07/05/23 04:54 3 ML Cefepime HCl 1000 mg/Sodium Chloride 50 ml @ 100 mls/hr ONCE ONCE IV 07/05/23 05:30 07/05/23 06:00 DC 07/05/23 05:42 100 MLS/HR Dexamethasone Sodium Phosphate 20 mg ONCE ONCE IH 07/05/23 05:00 07/05/23 05:01 DC 07/05/23 04:53 20 MG Furosemide 80 mg ONCE ONCE IVP 07/05/23 06:00 07/05/23 06:01 DC 07/05/23 06:00 80 MG Vital Signs/I&O 07/05/23 07/05/23 04:44 05:21 Temp 36.3 Pulse 63 Resp 24 B/P (MAP) 141/82 (101) Pulse Ox 94 95 O2 Delivery Room Air Room Air Capillary Refill : Progress Note : Progress Note VITALS ON ARRIVAL: TEMP 36.3, HR 63, RR 24, BP 141/82, O2 SAT 94% ON 2L/NC GIVEN: -NEB TREATMENT--HOUR LONG -SOLU-MEDROL -CEFEPIME -LASIX LABS: -CBC NORMAL WITH WBC 8.4 -CMP NORMAL -BNP 994 -TROPONIN 0.06 -LACTIC ACID NORMAL AT 1.30 -COAGULATION STUDIES PT 13.2, PTT 27, INR 1.0 -COVID AND FLU TESTS NEGATIVE CXR WITH POSSIBLE BIBASILAR ATELECTASIS/INFILTRATES AND POSSIBLE CHF--PENDING RADIOLOGIST REVIEW EKG IS NORMAL REVIEWED HALF-WAY PAPERS, OLD CHARTS INCLUDING ER RECORDS, ADMITS/H&P'S/CONSULTS/DISCHARGE SUMMARIES, TESTS/PROCEDURES DISCUSSED TEST RESULTS AND NEED FOR ADMIT AND PT IS AGREEABLE TO PLAN PT IS DNR PER HALF-WAY PAPERS ECG Initial ECG Impression Date: Jul 05, 2023 Initial ECG Impression Time: 05:08 Initial ECG Rate: 62 Initial ECG Rhythm: Normal Sinus Initial ECG Intervals: Normal Initial ECG Impression: Normal Initial ECG Comparisson: Unchanged Comment INTERPRETED BY ME Diagnostic Imaging Comments CXR--PENDING RADIOLOGIST REVIEW -BIBASILAR INFILTRATES/ATELECTASIS -MILD CHF ? Reviewed: Reviewed by Me Departure Communication (Admissions) [id number]--SPOKE WITH DR. BUSTILLOS, HOSPITALIST FOR DR. HINOJOSA'S PTS. ACCEPTS PT FOR ADMIT. SHE WILL DO ADMIT ORDERS Impression Primary Impression: COPD with acute exacerbation Additional Impressions: Elevated troponin CHF (congestive heart failure) POSSIBLE PNEUMONIA Current smoker HTN (hypertension) Disposition: ADMITTED INPATIENT Condition: Stable Admissions Decision to Admit Reason: Admit from ER (General) Decision to Admit/Date: Jul 05, 2023 Time/Decision to Admit Time: 05:55 Departure-Patient Inst. Referrals: RIGOBERTO HINOJOSA DO (PCP/Family) Primary Care Physician MARISSA LUX DO Jul 05, 2023 04:59
[2023-07-05] MEDS ORDERED: RT-Ipratropium/Albuterol NEB 3 ML VIAL INH ONE (05:00)
[2023-07-05] MEDS ORDERED: dexAMETHasone INJ 4 MG/ML SDV IH ONE (05:00)
[2023-07-05 05:06] LABS: BASOPHILS % (AUTO) 0 % (0-10); EOSINOPHILS # (AUTO) 0.2 10^3/uL (0.0-0.3); EOSINOPHILS % (AUTO) 3 % (0-10); HEMATOCRIT 39 % (35-52); HEMOGLOBIN 12.4 g/dL (11.5-16.0); LYMPHOCYTES # (AUTO) 0.8 10^3/uL (1.0-4.0); LYMPHOCYTES % (AUTO) 11 % (12-44); MEAN CORPUSCULAR HEMOGLOBIN 29 pg (25-34); MEAN CORPUSCULAR HGB CONC 32 g/dL (32-36); MEAN CORPUSCULAR VOLUME 90 fL (80-99); MEAN PLATELET VOLUME 12.5 fL (9.0-12.2); MONOCYTES # (AUTO) 0.9 10^3/uL (0.0-1.0); MONOCYTES % (AUTO) 11 % (0-12); NEUTROPHILS % (AUTO) 75 % (42-75); PLATELET COUNT 209 10^3/uL (130-400)
[2023-07-05] MEDS ORDERED: RT-ALBUTEROL SULF 2.5 MG/3 ML PRE-MIX VIAL INH STA (05:13)
[2023-07-05 05:15] LABS: ALBUMIN 3.8 GM/DL (3.2-4.5); POTASSIUM 4.2 MMOL/L (3.6-5.0)
[2023-07-05 05:17] LABS: CALCIUM 9.3 MG/DL (8.5-10.1); PROTHROMBIN TIME PATIENT 13.2 SEC (12.2-14.7)
[2023-07-05 05:18] LABS: TOTAL PROTEIN 6.2 GM/DL (6.4-8.2)
[2023-07-05 05:20] LABS: BILIRUBIN,TOTAL 0.5 MG/DL (0.1-1.0)
[2023-07-05 05:22] LABS: CREATININE SERUM 0.87 MG/DL (0.60-1.30)
[2023-07-05 05:24] LABS: MAGNESIUM 1.9 MG/DL (1.6-2.4)
[2023-07-05] MEDS ORDERED: CEFEPIME INJECTION 1,000 MG in NS (IVPB) 50 ML 50 ML IV ONE (05:30)
[2023-07-05] MEDS ORDERED: LIDOCAINE UROJET 2% GEL 10 ML PKG TOP ONE (06:00)
[2023-07-05] MEDS ORDERED: FUROSEMIDE INJECTION 40 MG/4 ML VIAL IVP ONE (06:00)
--- NOTE | 2023-07-05 06:16 | History & Physical ---
History of Present Illness HPI/Chief Complaint Chief complaint: Shortness of breath HPI: This is an 83-year-old female who presented to the ER with shortness of breath. Patient was found to be hypoxic. She wears oxygen at home chronically. It appears she lives at a facility but she is confused and thinks she lives at home. She is a DO NOT RESUSCITATE per orders on facility records. Currently she is doing a lot better she did have a slight elevation in her troponin and BNP so echocardiogram was ordered and she was placed on aspirin therapy cardiology consulted and we will monitor patient closely in the meantime. We will go ahead and transfer to fourth floor. Apparently she still smokes at the long term. She was placed on a 1 hour-long breathing treatment in the ER but still was wheezing. Source: patient Exam Limitations: no limitations Date Seen 07/05/23 Time Seen by a Provider: 11:00 Attending Physician Neelam Hinojosa DO PCP Admitting Physician: Attending Physician: Referring Physician Date of Admission Home Medications & Allergies Home Medications Reviewed patient Home Medication Reconciliation performed by pharmacy medication reconciliations weatherization technician and/or nursing. Patients Allergies have been reviewed. Allergies Allergies Coded Allergies Penicillins (Verified Allergy, Severe, ANAPHYLAXIS, 07/05/23) Per Dr. Hinojosa patient has had Cephalosporins in the past without issue Past Aelkggy-Ercmzh-Odibtc Hx Past Med/Social Hx: Reviewed Nursing Past Med/Soc Hx, Reviewed and Corrections made Patient Social History Marrital Status: single Employed/Student: retired Alcohol Use: Rarely Uses Alcohol Beverage of Choice: Wine Smoking Status: Current Everyday Smoker Type Used: Cigarettes 2nd Hand Smoke Exposure: No Recent Hopitalizations: Yes (ASTHMA ATTACK-2004) Immunizations Up To Date Date of Pneumonia Vaccine: Sep 09, 2016 Date of Influenza Vaccine: Aug 06, 2022 Seasonal Allergies Seasonal Allergies: No Past Medical History Surgeries: Hysterectomy, Orthopedic, Renal Currently Using CPAP: No Currently Using BIPAP: No Cardiac: High Cholesterol, Hypertension Neurological: Dementia Reproductive: Yes Genitourinary: Kidney Stones, UTI-Chronic Gastrointestinal: Gastroesophageal Reflux, Diverticulosis Hearing Impairment: Hard of Hearing History of Blood Disorders: No Family History SOCIAL HISTORY: -SMOKING--SMOKED 1 PPD IN PAST, NOW SMOKES 1/2 PPD--EVEN IN CARE HOME -ETOH DENIES USE -DRUGS DENIES USE Review of Systems Constitutional: see HPI, malaise, weakness EENTM: no symptoms reported Respiratory: dyspnea on exertion, short of breath, wheezing Cardiovascular: no symptoms reported Gastrointestinal: no symptoms reported Genitourinary: no symptoms reported Musculoskeletal: no symptoms reported Skin: no symptoms reported Psychiatric/Neurological: Anxiety, Emotional Problems All Other Systems Reviewed Negative Unless Noted: Yes Physical Exam Physical Exam Vital Signs Vital Signs - First Documented 07/05/23 07/05/23 04:44 06:39 Temp 36.3 Pulse 63 Resp 24 B/P (MAP) 141/82 (101) Pulse Ox 94 O2 Delivery Room Air O2 Flow Rate 2.00 Capillary Refill : Less Than 3 Seconds Height, Weight, BMI Height: 5'2.00" Weight: 160lbs. 0oz. [id number]; 21.00 BMI Method:Stated General Appearance: No Apparent Distress, WD/WN, Chronically ill Eyes: Bilateral Eye Normal Inspection, Bilateral Eye PERRL HEENT: PERRL/EOMI, Normal ENT Inspection, Pharynx Normal Neck: Full Range of Motion, Normal Inspection, Non Tender, Supple, Carotid Bruit Respiratory: No Accessory Muscle Use, No Respiratory Distress, Decreased Breath Sounds, Wheezing Cardiovascular: Regular Rate, Rhythm, No Edema, No Gallop, No JVD, Systolic Murmur (3/6) Gastrointestinal: Normal Bowel Sounds, No Organomegaly, No Pulsatile Mass, Non Tender, Soft Back: Normal Inspection, No CVA Tenderness, No Vertebral Tenderness Extremity: Normal Capillary Refill, Normal Inspection, Normal Range of Motion, Non Tender, No Calf Tenderness, No Pedal Edema Neurologic/Psychiatric: Alert, No Motor/Sensory Deficits, Normal Mood/Affect, Depressed Affect, Disoriented Skin: Normal Color, Warm/Dry Lymphatic: No Adenopathy Results Results/Procedures Labs Laboratory Tests 07/05/23 04:50 Patient resulted labs reviewed. Assessment/Plan Admission Diagnosis Assessment: Acute on chronic hypoxic respiratory failure Acute exacerbation of COPD Chronic oxygen supplementation at home Current smoker Elevated troponin consistent with a type II DE placed on aspirin checking lipid panel and maintain on statin Elevated BNP consistent with volume overload status post Lasix Dementia Advanced age Chronically debilitated residing in a facility Plan: Maintain DNR IV Lasix IV steroids Nebulizers Singulair Advair Cardiology consult Oxygen supplementation Transfer to fourth floor Echo Admission Status: Inpatient Order (span 2 midnights) Reason for Inpatient Admission: Respiratory failure Diagnosis/Problems Diagnosis/Problems (1) Respiratory failure, acute and chronic (2) COPD with acute exacerbation (3) Elevated troponin Status: Acute (4) Current smoker Status: Acute (5) HTN (hypertension) Status: Acute (6) CHF (congestive heart failure) Status: Acute (7) Aortic valvar stenosis BOBO BUSTILLOS DO Jul 05, 2023 06:16
[2023-07-05] MEDS ORDERED: MILK OF MAGNESIA 400 MG/5 ML 30 ML UDC PO PRN (06:30)
[2023-07-05] MEDS ORDERED: diphenhydrAMINE INJ 50 MG/ML VIAL IVP PRN (06:30)
[2023-07-05] MEDS ORDERED: BISACODYL 10 MG SUPPOSITORY PR PRN (06:30)
[2023-07-05] MEDS ORDERED: BENZONATATE 100 MG CAPSULE PO PRN (06:30)
[2023-07-05] MEDS ORDERED: ANTACID SUSPENSION 30 ML UDC PO PRN (06:30)
[2023-07-05] MEDS ORDERED: CALCIUM CARBONATE 500 MG CHEW TABLET PO PRN (06:30)
[2023-07-05] MEDS ORDERED: LACTULOSE SYRUP 10GM/15ML 30ML UDC PO PRN (06:30)
[2023-07-05] MEDS ORDERED: ONDANSETRON INJECTION 4 MG/2 ML (SDV) IV PRN (06:30)
[2023-07-05] MEDS ORDERED: diphenhydrAMINE 25 MG TABLET PO PRN (06:30)
[2023-07-05] MEDS ORDERED: morphine INJ 4 MG/ML 1 ML (VIAL/SYRINGE) IV PRN (06:30)
[2023-07-05] MEDS ORDERED: ALPRAZolam 1 MG TABLET PO PRN (06:30)
[2023-07-05] MEDS ORDERED: ACETAMINOPHEN 325 MG TABLET PO PRN (06:30)
[2023-07-05] MEDS ORDERED: ONDANSETRON 4 MG ORAL DISSOLVE TABLET PO PRN (06:30)
[2023-07-05] MEDS ORDERED: MELATONIN 3 MG TABLET PO PRN (06:30)
[2023-07-05] MEDS ORDERED: oxyCODONE IMMEDIATE RELEASE 5 MG TABLET PO PRN (06:30)
[2023-07-05 06:39] LABS: TRIGLYCERIDES 72 MG/DL (<150); VLDL CHOLESTEROL 14 MG/DL (5-40)
[2023-07-05 06:44] LABS: CHOLESTEROL 137 MG/DL (< 200)
[2023-07-05 06:45] LABS: HDL CHOLESTEROL 41 MG/DL (40-60)
[2023-07-05 06:51] VITALS: BP 149/62
[2023-07-05] MEDS: FUROSEMIDE INJECTION 40 MG/4 ML VIAL IVP SCH ×2 (06:54→15:22)
[2023-07-05] MEDS: AZITHROMYCIN INJECTION 500 MG in NS (IVPB) 250 ML 250 ML IV SCH (06:57)
[2023-07-05] MEDS: ENOXAPARIN 40 MG/0.4 ML SYRINGE SC SCH (06:57)
[2023-07-05 08:00] VITALS: BP 151/77
[2023-07-05] MEDS: FLUTICASONE/VILANTEROL 100/25 MCG (7 DOSES) IH SCH (08:25)
[2023-07-05] MEDS: DOCUSATE SODIUM 100 MG CAPSULE PO SCH ×2 (08:35→21:02)
[2023-07-05] MEDS: LORATADINE 10 MG TABLET PO SCH (08:35)
[2023-07-05] MEDS: SENNOSIDES 8.6 MG TABLET PO SCH ×2 (08:35→21:02)
[2023-07-05] MEDS: dexAMETHasone INJ 4 MG/ML SDV IV SCH ×2 (08:36→21:01)
--- NOTE | 2023-07-05 08:55 | Diagnostic Imaging Report ---
EXAM: CHEST 1 VIEW, AP/PA ONLY INDICATION: Wheezing. COMPARISON: 08/08/2022. FINDINGS: Normal heart size and central pulmonary vascularity. No focal pulmonary opacity. No pleural effusion or pneumothorax. No acute osseous findings. No significant change. IMPRESSION: No acute cardiopulmonary findings. Dictated by: Dictated on workstation # [id number]
[2023-07-05] MEDS ORDERED: CEFEPIME INJECTION 2,000 MG in NS (IVPB) 50 ML 50 ML IV SCH (09:00)
[2023-07-05] MEDS ORDERED: PANTOPRAZOLE 20 MG TABLET PO SCH (09:00)
[2023-07-05] MEDS ORDERED: ASPIRIN enteric coated 81MG TABLET PO SCH (09:00)
[2023-07-05 11:33] VITALS: BP 151/77
[2023-07-05] MEDS ORDERED: RT-Ipratropium/Albuterol NEB 3 ML VIAL INH PRN (11:45)
[2023-07-05 12:00] VITALS: BP 144/77
[2023-07-05] MEDS: RT-Ipratropium/Albuterol NEB 3 ML VIAL INH SCH ×2 (14:49→20:06)
[2023-07-05] MEDS: CEFEPIME 1,000 MG/NS 50 ML IVPB IV SCH ×4 (15:22→21:02)
[2023-07-05] MEDS ORDERED: BUPR150T24 PO (16:26)
[2023-07-05] MEDS ORDERED: METO50TA15 PO (16:26)
[2023-07-05] MEDS ORDERED: ALBU2.5V4 INH (16:26)
[2023-07-05] MEDS ORDERED: ACET-2267 PO (16:26)
[2023-07-05] MEDS ORDERED: [UNRECOGNIZED DRUG - OTHER] PO (16:26)
[2023-07-05] MEDS ORDERED: FERR325T18 PO (16:26)
[2023-07-05] MEDS ORDERED: DICL100G13 TP (16:26)
[2023-07-05] MEDS ORDERED: MULT15TA3 PO (16:26)
[2023-07-05] MEDS ORDERED: IBUP-1779 PO (16:26)
[2023-07-05] MEDS ORDERED: LIDO1ADH78 TP (16:26)
[2023-07-05] MEDS ORDERED: CHOL500044 PO (16:26)
[2023-07-05] MEDS ORDERED: IPRA4AER IH (16:26)
--- NOTE | 2023-07-05 17:26 | Consultation-Cardiology ---
HPI-Cardiology Cardiology Consultation: Date of Consultation 07/05/23 Date of Admission Attending Physician Rigoberto Hinojosa DO Admitting Physician Admitting Physician: Liza Davey DO Attending Physician: Liza Davey DO Consulting Physician Geneva HERNANDEZ MD HPI: Time Seen by a Provider: 15:30 Chief Complaint: Shortness of breath This is a 83-year-old lady with history of COPD and active smoking. She is oxygen dependent COPD with home oxygen of 2 L. Presented with shortness of breath and wheezing. Known history of severe aortic stenosis. Chart review men tions advanced dementia. When I saw the patient she was not in any respiratory distress however she did tell me that she was short of breath last night. Review of Systems-Cardiology Review of Systems Constitutional: no symptoms reported Eyes: no symptoms reported Ears/Nose/Throat: no symptoms reported Respiratory: shortness of breath Cardiovascular: no symptoms reported All Other Systems Reviewed Negative Unless Noted: Yes NBA-Fsperr-Bwqspy Hx Patient Social History Marrital Status: single Employed/Student: retired Smoking Status: Current Everyday Smoker 2nd Hand Smoke Exposure: No Alcohol Use?: No Tobacco type used: Cigarettes Immunizations Up To Date Date of Pneumonia Vaccine: Sep 09, 2016 Date of Influenza Vaccine: Aug 06, 2022 Past Medical History PMH As described under Assessment. Allergies and Home Medications Allergies Coded Allergies: Penicillins (Verified Allergy, Severe, ANAPHYLAXIS, 07/05/23) Per Dr. Hinojosa patient has had Cephalosporins in the past without issue Patient Home Medication List Home Medication List Reviewed: Yes Acetaminophen (Tylenol Extra Strength) 500 Mg Tablet, 500 MG PO Q8H PRN for PAIN, (Reported) Entered as Reported by: ARIANE BONDS on 07/05/231625 Last Action: New Order Albuterol Sulfate (Albuterol Sulfate) 2.5 Mg/3 Ml (0.083 %) Vial.neb, 2.5 MG INH Q4H PRN for SHORTNESS OF BREATH, (Reported) Entered as Reported by: ARIANE BONDS on 07/05/231625 Last Action: New Order Albuterol/Ipratropium (Combivent Respimat Inhal [place]) 20 Mcg-100 Mcg/Actuation Aero, 2 PUFF IH BID PRN for Q8H, (Reported) Entered as Reported by: ARIANE BONDS on 07/05/231625 Last Action: New Order Aspirin (Aspirin EC) 81 Mg Tablet.dr, 81 MG PO DAILY, (Reported) Entered as Reported by: DOLLY SIDDIQUI on 11/29/18 162 Last Action: Continued Atorvastatin Calcium (Atorvastatin Calcium) 40 Mg Tablet, 40 MG PO HS, (Reported) Entered as Reported by: DOLLY SIDDIQUI on 01/12/18 1113 Last Action: Continued Budesonide/Formoterol Fumarate (Symbicort 160-4.5 Mcg Inhaler) 10.2 Gm Hfa.aer.ad, 2 PUFF IH BID Prescribed by: RIGOBERTO HINOJOSA on 12/03/18 132 Last Action: Converted Bupropion HCl (Bupropion Xl) 150 Mg Tab.er.24h, 150 MG PO DAILY, (Reported) Entered as Reported by: ARIANE BONDS on 07/05/231625 Last Action: New Order Cephalexin (Cephalexin) 250 Mg Capsule, 250 MG PO DAILY Prescribed by: RIGOBERTO HINOJOSA on 08/08/22 110 Last Action: Held Cholecalciferol (Vitamin D3) (Vitamin D3) 125 Mcg (5000 Unit) Tablet, 125 MCG PO DAILY, (Reported) Entered as Reported by: ARIANE BONDS on 07/05/231625 Last Action: New Order Diclofenac Sodium (Diclofenac Sodium) 1 % Gel..gram., 100 GM TP PRN PRN for INFLAMMATION, (Reported) Entered as Reported by: ARIANE BONDS on 07/05/231625 Last Action: New Order Escitalopram Oxalate (Escitalopram Oxalate) 5 Mg Tablet, 5 MG PO DAILY Prescribed by: RIGOBERTO HINOJOSA on 08/08/221108 Last Action: Converted Ferrous Sulfate (Ferrous Sulfate) 325 Mg (65 Mg Iron) Tablet, 325 MG PO DAILY, (Reported) Entered as Reported by: ARIANE BONDS on 07/05/231625 Last Action: New Order Ibuprofen (Ibuprofen) 400 Mg Tablet, 400 MG PO Q6H PRN for PAIN, (Reported) Entered as Reported by: ARIANE BONDS on 07/05/231625 Last Action: New Order Ipratropium/Albuterol Sulfate (Iprat-Albut 0.5-3(2.5) mg/3 ml) 3 Ml Ampul.neb, 3 ML INH QID Prescribed by: RIGOBERTO HINOJOSA on 12/03/181325 Last Action: Held L. Rhamnosus GG/Inulin (Culturelle Digest 12B Cell Cap) 12 Billion Cell-200 Mg Capsule, 1 EACH PO DAILY, (Reported) Entered as Reported by: ARIANE BONDS on 07/05/231625 Last Action: New Order Lidocaine (Lidocaine) 4 % Adh..patch, 1 EACH TP DAILY PRN for LOWER BACK PAIN, (Reported) Entered as Reported by: ARIANE BONDS on 07/05/231625 Last Action: New Order Losartan Potassium (Losartan Potassium) 25 Mg Tablet, 25 MG PO DAILY Prescribed by: RIGOBERTO HINOJOSA on 08/08/22 110 Last Action: Continued Metoprolol Tartrate (Metoprolol Tartrate) 50 Mg Tablet, 50 MG PO HS, (Reported) Entered as Reported by: ARIANE BONDS on 07/05/231625 Last Action: New Order Multivit-Min/Ferrous Fumarate (Multivitamin with Minerals Tab) 15 Mg Iron Tablet, 15 MG PO DAILY, (Reported) Entered as Reported by: ARIANE BONDS on 07/05/231625 Last Action: New Order Pantoprazole Sodium (Pantoprazole Sodium) 20 Mg Tablet.dr, 20 MG PO DAILY, (Reported) Entered as Reported by: DOLLY SIDDIQUI on 11/29/181615 Last Action: Continued Exam Vital Signs Vital Signs Date Time Temp Pulse Resp B/P (MAP) Pulse Ox O2 Delivery O2 Flow Rate FiO2 07/05/23 14:50 94 Room Air 07/05/23 12:27 85 07/05/23 12:00 36.6 20 144/77 (99) 2.00 2.00 Physical Exam Constitutional: No significant respiratory distress. Chest: Clear to auscultation bilaterally. CVS: Ejection systolic murmur. Nonfocal neuro exam. No significant pedal edema Labs Laboratory Tests Test 07/05/23 04:40 07/05/23 04:50 07/05/23 10:55 Range/Units Influenza Type A (RT-PCR) Not Detected Not Detecte Influenza Type B (RT-PCR) Not Detected Not Detecte SARS-CoV-2 RNA (RT-PCR) Not Detected Not Detecte White Blood Count 8.0 4.3-11.0 10^3/uL Red Blood Count 4.34 3.80-5.11 10^6/uL Hemoglobin 12.4 11.5-16.0 g/dL Hematocrit 39 35-52 % Mean Corpuscular Volume 90 80-99 fL Mean Corpuscular Hemoglobin 29 25-34 pg Mean Corpuscular Hemoglobin Concent 32 32-36 g/dL Red Cell Distribution Width 14.6 H 10.0-14.5 % Platelet Count 209 130-400 10^3/uL Mean Platelet Volume 12.5 H 9.0-12.2 fL Immature Granulocyte % (Auto) 1 % Neutrophils (%) (Auto) 75 42-75 % Lymphocytes (%) (Auto) 11 L 12-44 % Monocytes (%) (Auto) 11 0-12 % Eosinophils (%) (Auto) 3 0-10 % Basophils (%) (Auto) 0 0-10 % Neutrophils # (Auto) 6.0 1.8-7.8 10^3/uL Lymphocytes # (Auto) 0.8 L 1.0-4.0 10^3/uL Monocytes # (Auto) 0.9 0.0-1.0 10^3/uL Eosinophils # (Auto) 0.2 0.0-0.3 10^3/uL Basophils # (Auto) 0.0 0.0-0.1 10^3/uL Immature Granulocyte # (Auto) 0.1 0.0-0.1 10^3/uL Prothrombin Time 13.2 12.2-14.7 SEC INR Comment 1.0 0.8-1.4 Activated Partial Thromboplast Time 27 24-35 SEC Sodium Level 142 135-145 MMOL/L Potassium Level 4.2 3.6-5.0 MMOL/L Chloride Level 109 H 98-107 MMOL/L Carbon Dioxide Level 26 21-32 MMOL/L Anion Gap 7 5-14 MMOL/L Blood Urea Nitrogen 20 H 7-18 MG/DL Creatinine 0.87 0.60-1.30 MG/DL Estimat Glomerular Filtration Rate 66 BUN/Creatinine Ratio 23 Glucose Level 93 70-105 MG/DL Lactic Acid Level 1.30 0.50-2.00 MMOL/L Calcium Level 9.3 8.5-10.1 MG/DL Corrected Calcium 9.5 8.5-10.1 MG/DL Magnesium Level 1.9 1.6-2.4 MG/DL Total Bilirubin 0.5 0.1-1.0 MG/DL Aspartate Amino Transf (AST/SGOT) 15 5-34 U/L Alanine Aminotransferase (ALT/SGPT) 10 0-55 U/L Alkaline Phosphatase 58 40-136 U/L Troponin I 0.060 H 0.045 H <0.028 NG/ML B-Type Natriuretic Peptide 994.2 H <100.0 PG/ML Total Protein 6.2 L 6.4-8.2 GM/DL Albumin 3.8 3.2-4.5 GM/DL Triglycerides Level 72 <150 MG/DL Cholesterol Level 137 < 200 MG/DL LDL Cholesterol Direct 86 1-129 MG/DL VLDL Cholesterol 14 5-40 MG/DL HDL Cholesterol 41 40-60 MG/DL ECG Impression ECG Initial ECG Rhythm: Normal Sinus A/P-Cardiology Assessment/Admission Diagnosis Acute respiratory failure, COPD exacerbation, Acute on chronic systolic/diastolic congestive heart failure. Critical aortic stenosis Advanced dementia Plan Acute respiratory failure is likely multifactorial with COPD exacerbation and acute on chronic systolic/diastolic congestive heart failure. Patient continues to actively smoke. I will defer management of COPD to the primary team. Echocardiogram shows critical aortic stenosis with LVEF of 50 to 55%. Apparently this is known severe aortic stenosis and due to advanced dementia she is being treated conservatively. Prognosis of critical aortic stenosis without intervention is poor. I will defer to the primary team and primary combiner operator to make the decision. Heart failure has improved on IV Lasix. Geneva HERNANDEZ MD Jul 05, 2023 17:26
[2023-07-05 19:22] VITALS: BP 158/65
[2023-07-05] MEDS ORDERED: NON-FORMULARY MEDICATION 1 EA EA (Budesonide/Formoterol Fumarate (Symbicort 160-4.5 Mcg In IH SCH (21:00)
[2023-07-05] MEDS ORDERED: MONTELUKAST 10 MG TABLET PO SCH (21:00)
[2023-07-05 23:47] VITALS: BP 145/71
[2023-07-06] MEDS: RT-Ipratropium/Albuterol NEB 3 ML VIAL INH SCH ×3 (02:44→15:40)
[2023-07-06 03:25] VITALS: BP 149/70
[2023-07-06] MEDS: CEFEPIME 1,000 MG/NS 50 ML IVPB IV SCH ×2 (05:49)
[2023-07-06 06:12] LABS: BASOPHILS % (AUTO) 0 % (0-10); EOSINOPHILS % (AUTO) 0 % (0-10); HEMATOCRIT 39 % (35-52); HEMOGLOBIN 12.8 g/dL (11.5-16.0); LYMPHOCYTES # (AUTO) 0.5 10^3/uL (1.0-4.0); LYMPHOCYTES % (AUTO) 5 % (12-44); MEAN CORPUSCULAR HEMOGLOBIN 29 pg (25-34); MEAN CORPUSCULAR HGB CONC 33 g/dL (32-36); MEAN CORPUSCULAR VOLUME 87 fL (80-99); MEAN PLATELET VOLUME 11.8 fL (9.0-12.2); MONOCYTES # (AUTO) 0.9 10^3/uL (0.0-1.0); MONOCYTES % (AUTO) 8 % (0-12); NEUTROPHILS # (AUTO) 9.8 10^3/uL (1.8-7.8); NEUTROPHILS % (AUTO) 86 % (42-75); PLATELET COUNT 247 10^3/uL (130-400); WHITE BLOOD COUNT 11.4 10^3/uL (4.3-11.0)
[2023-07-06 06:20] LABS: ALBUMIN 3.9 GM/DL (3.2-4.5); POTASSIUM 4.1 MMOL/L (3.6-5.0)
[2023-07-06 06:21] LABS: CALCIUM 9.8 MG/DL (8.5-10.1)
[2023-07-06 06:22] LABS: TOTAL PROTEIN 6.5 GM/DL (6.4-8.2)
[2023-07-06 06:24] LABS: BILIRUBIN,TOTAL 0.6 MG/DL (0.1-1.0)
[2023-07-06 06:26] LABS: CREATININE SERUM 1.28 MG/DL (0.60-1.30)
[2023-07-06] MEDS: ENOXAPARIN 40 MG/0.4 ML SYRINGE SC SCH (06:33)
[2023-07-06] MEDS: FUROSEMIDE INJECTION 40 MG/4 ML VIAL IVP SCH (06:33)
[2023-07-06] MEDS: AZITHROMYCIN INJECTION 500 MG in NS (IVPB) 250 ML 250 ML IV SCH (06:34)
[2023-07-06 06:50] LABS: ATYPICAL LYMPHOCYTES 1 %; LYMPHOCYTES % (MANUAL) 8 %; MONOCYTES % (MANUAL) 11 %; NEUTROPHILS % (MANUAL) 80 %; RBC MORPH NORMAL
[2023-07-06] MEDS: FLUTICASONE/VILANTEROL 100/25 MCG (7 DOSES) IH SCH (07:41)
[2023-07-06 08:00] VITALS: BP 145/70
[2023-07-06] MEDS ORDERED: PANTOPRAZOLE 20 MG TABLET PO SCH (09:00)
[2023-07-06] MEDS ORDERED: ASPIRIN enteric coated 81MG TABLET PO SCH (09:00)
[2023-07-06] MEDS ORDERED: CITALOPRAM 10 MG TABLET PO SCH (09:00)
[2023-07-06] MEDS ORDERED: LOSARTAN 25 MG TABLET PO SCH (09:00)
[2023-07-06] MEDS: SENNOSIDES 8.6 MG TABLET PO SCH (10:03)
[2023-07-06] MEDS: LORATADINE 10 MG TABLET PO SCH (10:04)
[2023-07-06] MEDS: DOCUSATE SODIUM 100 MG CAPSULE PO SCH (10:04)
[2023-07-06] MEDS: dexAMETHasone INJ 4 MG/ML SDV IV SCH (10:06)
--- NOTE | 2023-07-06 10:49 | Progress Note ---
AMANDA PHILLIPS 07/06/23 1048: Subjective Date Seen by a Provider: Jul 06, 2023 Time Seen by a Provider: 09:45 Subjective/Events-last exam Patient was seen this morning at the bedside. She reports feeling "pretty good." She denies chest pain, shortness of breath, orthopnea, but does admit to still wheezing some. She had an echo performed that revealed critical aortic stenosis with an EF of 50-55%. Bridgette has been helping her. Review of Systems Pulmonary: No Dyspnea, No Cough, No Pleuritic Chest Pain Cardiovascular: No: Chest Pain, Palpitations, Orthopnea Neurological: Confusion; No: Change in speech Focused Exam Lactate Level 07/05/23 04:50: Lactic Acid Level 1.30 Time of Focused Exam: 05:30 Objective Exam Last Set of Vital Signs Vital Signs Date Time Temp Pulse Resp B/P (MAP) Pulse Ox O2 Delivery O2 Flow Rate FiO2 07/06/23 08:23 94 Nasal Cannula 2.00 07/06/23 08:00 36.0 76 20 145/70 (95) Capillary Refill : Less Than 3 Seconds I&O Intake and Output 07/06/23 00:00 Intake Total 1655 ml Output Total 2525 ml Balance -870 ml Intake Oral 1350 ml IV Total 305 ml Output Urine Total 2525 ml # Voids 3 General: Alert, Oriented X3 (oriented to person and place but not time, ), Cooperative, No Acute Distress Neck: Supple, No JVD Lungs: Other (wheezing appreciated on auscultation in bilateral lower lung macias) Heart: Regular Rate, Other (holosytolic murmur appreciated on auscultation of 2nd intercostal space on right sternal border) Extremities: No Edema, Normal Pulses Skin: No Rashes Neuro: Normal Speech Psych/Mental Status: Mood NL Results Lab Laboratory Tests 07/05/23 10:55: Troponin I 0.045H 07/06/23 05:35: White Blood Count 11.4H, Red Blood Count 4.47, Hemoglobin 12.8, Hematocrit 39, Mean Corpuscular Volume 87, Mean Corpuscular Hemoglobin 29, Mean Corpuscular Hemoglobin Concent 33, Red Cell Distribution Width 14.5, Platelet Count 247, Mean Platelet Volume 11.8, Immature Granulocyte % (Auto) 1, Neutrophils (%) (Auto) 86H, Lymphocytes (%) (Auto) 5L, Monocytes (%) (Auto) 8, Eosinophils (%) (Auto) 0, Basophils (%) (Auto) 0, Neutrophils # (Auto) 9.8H, Lymphocytes # (Auto) 0.5L, Monocytes # (Auto) 0.9, Eosinophils # (Auto) 0.0, Basophils # (Auto) 0.0, Immature Granulocyte # (Auto) 0.1, Neutrophils % (Manual) 80, Lymphocytes % (Manual) 8, Monocytes % (Manual) 11, Atypical Lymphocytes 1, Blood Morphology Comment NORMAL, Sodium Level 139, Potassium Level 4.1, Chloride Level 102, Carbon Dioxide Level 25, Anion Gap 12, Blood Urea Nitrogen 40H, Creatinine 1.28, Estimat Glomerular Filtration Rate 42, BUN/Creatinine Ratio 31, Glucose Level 140H, Calcium Level 9.8, Corrected Calcium 9.9, Total Bilirubin 0.6, Aspartate Amino Transf (AST/SGOT) 16, Alanine Aminotransferase (ALT/SGPT) 10, Alkaline Phosphatase 58, Total Protein 6.5, Albumin 3.9 Assessment/Plan Assessment/Plan Assess & Plan/Chief Complaint - COPD exacerbation > IV steroids > nebulizer treatments > singulair > advair - Type 2 SC > elevated troponin > continue aspirin and high dose statin therapy - Hypoxic respiratory failure > continue oxygen supplementation as needed > closely monitor respiratory function LIZA BUSTILLOS DO 07/06/232010: Supervisory-Addendum Brief Verification & Attestation Participated in pt care: history, MDM, physical Personally performed: exam, history, MDM, supervision of care Care discussed with: Medical Student Procedures: n/a Results interpretation: Verified all documentation Verification and Attestation of Medical Student E/M Service A medical student performed and documented this service in my presence. I r eviewed and verified all information documented by the medical student and made modifications to such information, when appropriate. I personally performed the physical exam and medical decision making. Liza Bustillos, Jul 06, 2023,20:11 AMANDA PHILLIPS Jul 06, 2023 10:48 LIZA BUSTILLOS DO Jul 06, 2023 20:11
[2023-07-06 10:59] VITALS: BP 151/66
--- NOTE | 2023-07-06 11:32 | Cardiology Progress Note ---
Subjective Date Seen by Provider: Jul 06, 2023 Time Seen by Provider: 08:35 Subjective/Events-last exam Patient is sitting up in bed, no apparent distress. Focused Exam Lactate Level 07/05/23 04:50: Lactic Acid Level 1.30 Time of Focused Exam: 05:30 Objective-Cardiology Exam Last Set of Vital Signs Vital Signs 07/06/23 07/06/23 12:15 12:45 Temp 36.2 Pulse 72 Resp 14 B/P (MAP) 151/66 (94) Pulse Ox 96 O2 Delivery Room Air O2 Flow Rate 2.00 2.00 I&O Intake and Output 07/05/23 23:59 Intake Total 1655 ml Output Total 2525 ml Balance -870 ml Intake Oral 1350 ml IV Total 305 ml Output Urine Total 2525 ml # Voids 3 General: Alert, Oriented X3 (oriented to person, not time or place), Cooperative, No Acute Distress Neck: Supple, No JVD Lungs: Other (wheezing appreciated on auscultation in bilateral lower lung macias) Heart: Regular Rate, Other (holosytolic murmur appreciated on auscultation of 2nd intercostal space on right sternal border) Extremities: No Edema, Normal Pulses Skin: No Rashes Neuro: Normal Speech Psych/Mental Status: Mood NL Results Lab Laboratory Tests 07/06/23 05:35 A/P-Cardiology Admission Diagnosis Acute respiratory failure Aortic stenosis HTN HLP Assessment/Plan Acute respiratory failure is likely multifactorial with COPD exacerbation and acute on chronic systolic/diastolic congestive heart failure. Patient continues to actively smoke. I will defer management of COPD to the primary team. Severe aortic valve stenosis, 2D Echo done 07/05/23 shows severe to critical aortic stenosis with LVEF of 50 to 55%, mean gradient 51mmHg, calculated valve area 0.7-0.8cm . Unchanged from previous echo. Due to her underlying dementia I recommend conservative management, overall patient is not symptomatic at this point. Hypertension, continue to monitor blood pressure. Hyperlipidemia, lipid profile showed total cholesterol 125, triglyceride 112, LDL 73. Continue to monitor Advanced dementia. Supervisory-Addendum Brief Supervisory Addendum Participated in pt care: history, MDM, physical Personally performed: exam, history, MDM Care discussed with: ANTONY Results interpretation: Verified all documentation Notes: Patient was seen and evaluated with Griselda, examination performed, management plan was discussed, agree with the current scribed note, I made few changes to the note using Italic font Patient was seen at bedside, laying down comfortably, no chest pain was reported No syncope or signs of heart failure Conservative management is recommended due to her advanced dementia. Monitor blood pressure Okay for discharge from cardiology standpoint GRISELDA COLON Jul 06, 2023 11:32 JASPAL ROACH MD Jul 06, 2023 13:37
--- NOTE | 2023-07-06 11:37 | Physical Therapy Evaluation ---
PT Evaluation-General Medical Diagnosis Admission Date Jul 05, 2023 at 06:30 Medical Diagnosis: COPD Onset Date: Jul 05, 2023 Therapy Diagnosis Therapy Diagnosis: generalized weakness/debility Height/Weight Height (Feet): 5 Height (Inches): 2.00 Weight (Pounds): 160 Weight (Ounces): 0 Precautions Precautions/Isolations: Standard Precautions Referral Physician: Petar Reason for Referral: Evaluation/Treatment Medical History Pertinent Medical History: COPD, Dementia, HTN, Smoking Reviewed History: Yes Social History Home: Longterm Prior Prior Level of Function SCALE: Activities may be completed with or without assistive devices. 2-Jpmseepuug-exitpwq completes the activity by him/herself with no assistance from a helper. 5-Set-up or Clean-up Assistance-helper sets up or cleans up; patient completes activity. [place] assists only prior to or following the activity. 4-Supervision or Touching Assistance-helper provides verbal cues and/or touc hyun/steadying and/or contact guard assistance as patient completes activity. Assistance may be provided throughout the activity or intermittently. 3-Partial/Moderate Assistance-helper does LESS THAN HALF the effort. [place] lifts, holds or supports trunk or limbs, but provides less than half the effort. 2-Substantial/Maximal Assistance-helper does MORE THAN HALF the effort. [place] lifts or holds trunk or limbs and provides more than half the effort. 6-Fckxjvwid-htximf does ALL the effort. Patient does none of the effort to complete the activity. Or, the assistance of 2 or more helpers is required for the patient to complete the activity. If activity was not attempted, code reason: 7-Patient Refused. 9-Not Applicable-not attempted and the patient did not perform the activity before the current illness, exacerbation or injury. 10-Not Attempted due to Environmental Limitations-(lack of equipment, weather restraints, etc.). 88-Not Attempted due to Medical Conditions or Safety Concerns. Bed Mobility: 3 Transfers (B,C,W/C): 3 Gait: 3 Indoor Mobility (Ambulation): Needed Some Help Stairs: Not Applicalbe Prior Devices Use: Walker PT Evaluation-Current Subjective Patient very agreeable to participate with PT. ROM/Strength ROM Lower Extremities bilateral LE WFL Strength Lower Extremities 3/5 grossly bilateral LE all planes Integumentary/Posture Bladder Incontinence: Yes Posture WFL Neuromuscular (Tone, Coordination, Reflexes) diminished coordination due to weakness Sensory Vision: Functional Hearing: Functional Transfers Lying to Sitting/Side of Bed(Q: 3 Sit to Stand (QC): 3 Chair/Mlg-wd-Xqeql Xfer(QC): 3 Toilet Transfer (QC): 3 incontinent urine requiring dependent assist to cleanse and change brief Gait Mode of Locomotion: Walk Anticipated Mode of Locomotion: Walk Walk 10 feet (QC): 3 Walk 50 ft with 2 Turns(QC): 88 Walk 150 ft (QC): 88 Distance: 30' x 1/15' x 1 Gait Assistive Device: FWW Comments/Gait Description unsteady with PT correct. Balance Sitting Static: Fair Sitting Dynamic: Fair Standing Static: Fair Standing Dynamic: Poor Assessment/Needs Patient will benefit from skilled PT to address functional strength and mobility to improve current LOF. Patient is up in recliner with chair alarm activated. Rehab Potential: Fair PT Plant Tour Guide Goals Penitentiary Goals PT Plant Tour Guide Goals Time Frame: Jul 18, 2023 Roll Left & Right (QC): 4 Sit to Lying (QC): 4 Lying-Sitting on Side/Bed(QC): 4 Sit to Stand (QC): 4 Chair/Slf-jd-Xfaat Xfer(QC): 4 Toilet Transfer (QC): 4 Walk 10 feet (QC): 4 Walk 50ft with 2 Turns (QC): 4 PT Plan Problem List Problem List: Activity Tolerance, Functional Strength, Safety, Balance, Gait, Transfer, Bed Mobility Treatment/Plan Treatment Plan: Continue Plan of Care Treatment Plan: Bed Mobility, Education, Functional Activity Danny, Functional Strength, Gait, Safety, Therapeutic Exercise, Transfers Treatment Duration: Jul 18, 2023 Frequency: 5 times per week Estimated Hrs Per Day: .25 hour per day Time Time In: 945 Time Out: 958 DATE: Jul 06, 2023 Total Billed Treatment Time: 13 Total Billed Treatment 1 visit EVMod 13 min ALBER TANNER PT Jul 06, 2023 11:37
[2023-07-06 12:15] VITALS: BP 151/66
[2023-07-06] MEDS ORDERED: CEFD300C3 PO (13:00)
--- NOTE | 2023-07-06 13:00 | Discharge Summary ---
Diagnosis/Chief Complaint Date of Admission Jul 05, 2023 at 06:30 Date of Discharge Discharge Date: Jul 06, 2023 Discharge Diagnosis - COPD exacerbation > IV steroids > nebulizer treatments > singulair > advair - Type 2 CT > elevated troponin > continue aspirin and high dose statin therapy - Hypoxic respiratory failure > continue oxygen supplementation as needed > closely monitor respiratory function -Severe aortic stenosis O2 dependence Dementia DNR Discharge Summary Discharge Physical Examination Allergies: Coded Allergies: Penicillins (Verified Allergy, Severe, ANAPHYLAXIS, 07/05/23) Per Dr. Hinojosa patient has had Cephalosporins in the past without issue Vitals & I&Os Vital Signs Date Time Temp Pulse Resp B/P (MAP) Pulse Ox O2 Delivery O2 Flow Rate FiO2 07/06/23 16:12 36.2 72 14 151/66 97 Room Air 2.00 General Appearance: Alert, Cooperative Respiratory: Clear to Auscultation Cardiovascular: Regular Rate Psych/Mental Status: Mental Status NL Hospital Course Was the Problem List Reviewed?: Yes Patient had an uneventful hospital course after she was admitted for acute on chronic respiratory failure.Pneumonia was treated with IV antibiotics. IV steroids initiated for exacerbation of COPD. Volume overload required low-dose Lasix. Severe aortic stenosis on echocardiogram Cardiology Management i nitiated. She remains a DNR and family did not want any aggressive care so [facility] Labs (last 24 hrs) Laboratory Tests 07/05/23 04:40: Influenza Type A (RT-PCR) Not Detected, Influenza Type B (RT-PCR) Not Detected, SARS-CoV-2 RNA (RT-PCR) Not Detected 07/05/23 04:50: White Blood Count 8.0, Red Blood Count 4.34, Hemoglobin 12.4, Hematocrit 39, Mean Corpuscular Volume 90, Mean Corpuscular Hemoglobin 29, Mean Corpuscular Hemoglobin Concent 32, Red Cell Distribution Width 14.6H, Platelet Count 209, Mean Platelet Volume 12.5H, Immature Granulocyte % (Auto) 1, Neutrophils (%) (Auto) 75, Lymphocytes (%) (Auto) 11L, Monocytes (%) (Auto) 11, Eosinophils (%) (Auto) 3, Basophils (%) (Auto) 0, Neutrophils # (Auto) 6.0, Lymphocytes # (Auto) 0.8L, Monocytes # (Auto) 0.9, Eosinophils # (Auto) 0.2, Basophils # (Auto) 0.0, Immature Granulocyte # (Auto) 0.1, Prothrombin Time 13.2, INR Comment 1.0, Activated Partial Thromboplast Time 27, Sodium Level 142, Potassium Level 4.2, Chloride Level 109H, Carbon Dioxide Level 26, Anion Gap 7, Blood Urea Nitrogen 20H, Creatinine 0.87, Estimat Glomerular Filtration Rate 66, BUN/Creatinine Ratio 23, Glucose Level 93, Lactic Acid Level 1.30, Calcium Level 9.3, Corrected Calcium 9.5, Magnesium Level 1.9, Total Bilirubin 0.5, Aspartate Amino Transf (AST/SGOT) 15, Alanine Aminotransferase (ALT/SGPT) 10, Alkaline Phosphatase 58, Troponin I 0.060H, B-Type Natriuretic Peptide 994.2H, Total Protein 6.2L, Albumin 3.8, Triglycerides Level 72, Cholesterol Level 137, LDL Cholesterol Direct 86, VLDL Cholesterol 14, HDL Cholesterol 41 07/05/23 10:55: Troponin I 0.045H 07/06/23 05:35: White Blood Count 11.4H, Red Blood Count 4.47, Hemoglobin 12.8, Hematocrit 39, Mean Corpuscular Volume 87, Mean Corpuscular Hemoglobin 29, Mean Corpuscular Hemoglobin Concent 33, Red Cell Distribution Width 14.5, Platelet Count 247, Mean Platelet Volume 11.8, Immature Granulocyte % (Auto) 1, Neutrophils (%) (Auto) 86H, Lymphocytes (%) (Auto) 5L, Monocytes (%) (Auto) 8, Eosinophils (%) (Auto) 0, Basophils (%) (Auto) 0, Neutrophils # (Auto) 9.8H, Lymphocytes # (Auto) 0.5L, Monocytes # (Auto) 0.9, Eosinophils # (Auto) 0.0, Basophils # (Auto) 0.0, Immature Granulocyte # (Auto) 0.1, Sodium Level 139, Potassium Level 4.1, Chloride Level 102, Carbon Dioxide Level 25, Anion Gap 12, Blood Urea Nitrogen 40H, Creatinine 1.28, Estimat Glomerular Filtration Rate 42, BUN/Creatinine Ratio 31, Glucose Level 140H, Calcium Level 9.8, Corrected Calcium 9.9, Total Bilirubin 0.6, Aspartate Amino Transf (AST/SGOT) 16, Alanine Aminotransferase (ALT/SGPT) 10, Alkaline Phosphatase 58, Total Protein 6.5, Albumin 3.9, Neutrophils % (Manual) 80, Lymphocytes % (Manual) 8, Monocytes % (Manual) 11, Atypical Lymphocytes 1, Blood Morphology Comment NORMAL Pending Labs Laboratory Tests 07/05/23 04:40: Influenza Type A (RT-PCR) Not Detected, Influenza Type B (RT-PCR) Not Detected, SARS-CoV-2 RNA (RT-PCR) Not Detected 07/05/23 04:50: White Blood Count 8.0, Red Blood Count 4.34, Hemoglobin 12.4, Hematocrit 39, Mean Corpuscular Volume 90, Mean Corpuscular Hemoglobin 29, Mean Corpuscular Hemoglobin Concent 32, Red Cell Distribution Width 14.6, Platelet Count 209, Mean Platelet Volume 12.5, Immature Granulocyte % (Auto) 1, Neutrophils (%) (Auto) 75, Lymphocytes (%) (Auto) 11, Monocytes (%) (Auto) 11, Eosinophils (%) (Auto) 3, Basophils (%) (Auto) 0, Neutrophils # (Auto) 6.0, Lymphocytes # (Auto) 0.8, Monocytes # (Auto) 0.9, Eosinophils # (Auto) 0.2, Basophils # (Auto) 0.0, Immature Granulocyte # (Auto) 0.1, Prothrombin Time 13.2, INR Comment 1.0, Activated Partial Thromboplast Time 27, Sodium Level 142, Potassium Level 4.2, Chloride Level 109, Carbon Dioxide Level 26, Anion Gap 7, Blood Urea Nitrogen 20, Creatinine 0.87, Estimat Glomerular Filtration Rate 66, BUN/Creatinine Ratio 23, Glucose Level 93, Lactic Acid Level 1.30, Calcium Level 9.3, Corrected Ottoniel cium 9.5, Magnesium Level 1.9, Total Bilirubin 0.5, Aspartate Amino Transf (AST/SGOT) 15, Alanine Aminotransferase (ALT/SGPT) 10, Alkaline Phosphatase 58, Troponin I 0.060, B-Type Natriuretic Peptide 994.2, Total Protein 6.2, Albumin 3.8, Triglycerides Level 72, Cholesterol Level 137, LDL Cholesterol Direct 86, VLDL Cholesterol 14, HDL Cholesterol 41 07/05/23 10:55: Troponin I 0.045 07/06/23 05:35: White Blood Count 11.4, Red Blood Count 4.47, Hemoglobin 12.8, Hematocrit 39, Mean Corpuscular Volume 87, Mean Corpuscular Hemoglobin 29, Mean Corpuscular Hemoglobin Concent 33, Red Cell Distribution Width 14.5, Platelet Count 247, Mean Platelet Volume 11.8, Immature Granulocyte % (Auto) 1, Neutrophils (%) (Auto) 86, Lymphocytes (%) (Auto) 5, Monocytes (%) (Auto) 8, Eosinophils (%) (Auto) 0, Basophils (%) (Auto) 0, Neutrophils # (Auto) 9.8, Lymphocytes # (Auto) 0.5, Monocytes # (Auto) 0.9, Eosinophils # (Auto) 0.0, Basophils # (Auto) 0.0, Immature Granulocyte # (Auto) 0.1, Sodium Level 139, Potassium Level 4.1, Chloride Level 102, Carbon Dioxide Level 25, Anion Gap 12, Blood Urea Nitrogen 40, Creatinine 1.28, Estimat Glomerular Filtration Rate 42, BUN/Creatinine Ratio 31, Glucose Level 140, Calcium Level 9.8, Corrected Calcium 9.9, Total Bilirubin 0.6, Aspartate Amino Transf (AST/SGOT) 16, Alanine Aminotransferase (ALT/SGPT) 10, Alkaline Phosphatase 58, Total Protein 6.5, Albumin 3.9, Neutrophils % (Manual) 80, Lymphocytes % (Manual) 8, Monocytes % (Manual) 11, Atypical Lympho cytes 1, Blood Morphology Comment NORMAL Discharge Home Medications: Active Scripts Active Prednisone 20 Mg Tab 20 Mg PO DAILY Take 3 tabs(60mg)daily, decrease by 1/2 tab(10mg)daily. Cefdinir 300 Mg Capsule 300 Mg PO BID Cephalexin 250 Mg Capsule 250 Mg PO DAILY Losartan Potassium 25 Mg Tablet 25 Mg PO DAILY Escitalopram Oxalate 5 Mg Tablet 5 Mg PO DAILY Symbicort 160-4.5 Mcg Inhaler (Budesonide/Formoterol Fumarate) 10.2 Gm Hfa.aer.ad 2 Puff IH BID Iprat-Albut 0.5-3(2.5) mg/3 ml (Ipratropium/Albuterol Sulfate) 3 Ml Ampul.neb 3 Ml INH QID Reported Vitamin D3 (Cholecalciferol (Vitamin D3)) 125 Mcg (5000 Unit) Tablet 125 Mcg PO DAILY Tylenol Extra Strength (Acetaminophen) 500 Mg Tablet 500 Mg PO Q8H PRN Metoprolol Tartrate 50 Mg Tablet 50 Mg PO HS Lidocaine 4 % Adh..patch 1 Each TP DAILY PRN Ibuprofen 400 Mg Tablet 400 Mg PO Q6H PRN Ferrous Sulfate 325 Mg (65 Mg Iron) Tablet 325 Mg PO DAILY Combivent Respimat Inhal [place] (Albuterol/Ipratropium) 20 Mcg-100 Mcg/Actuation Aero 2 Puff IH BID PRN Bupropion Xl (Bupropion HCl) 150 Mg Tab.er.24h 150 Mg PO DAILY Multivitamin with Minerals Tab (Multivit-Min/Ferrous Fumarate) 15 Mg Iron Tablet 15 Mg PO DAILY Culturelle Digest 12B Cell Cap (L. Rhamnosus GG/Inulin) 12 Billion Cell-200 Mg Capsule 1 Each PO DAILY Albuterol Sulfate 2.5 Mg/3 Ml (0.083 %) Vial.neb 2.5 Mg INH Q4H PRN Diclofenac Sodium 1 % Gel..gram. 100 Gm TP PRN PRN Aspirin EC (Aspirin) 81 Mg Tablet.dr 81 Mg PO DAILY Pantoprazole Sodium 20 Mg Tablet.dr 20 Mg PO DAILY Atorvastatin Calcium 40 Mg Tablet 40 Mg PO HS Instructions to patient/family Please see electronic discharge instructions given to patient. Diagnosis/Problems Diagnosis/Problems (1) Respiratory failure, acute and chronic (2) COPD with acute exacerbation (3) Elevated troponin Status: Acute (4) Current smoker Status: Acute (5) HTN (hypertension) Status: Acute (6) CHF (congestive heart failure) Status: Acute (7) Aortic valvar stenosis BOBO BUSTILLOS DO Jul 06, 2023 13:00
[2023-07-06] MEDS ORDERED: PRD20T PO (13:03)
[2023-07-06] MEDS ORDERED: CEFDINIR 300 MG CAPSULE PO SCH (13:15)
[2023-07-06 16:12] VITALS: BP 151/66
[2023-07-06] MEDS ORDERED: CEFEPIME 1,000 MG/NS 50 ML IVPB IV SCH ×2 (18:00)
[2023-07-07] MEDS ORDERED: predniSONE 20 MG TABLET PO SCH (07:00)
[2023-07-07] MEDS ORDERED: ENOXAPARIN 30 MG/0.3 ML SYRINGE SC SCH (07:00)
[2023-07-07] MEDS ORDERED: AZITHROMYCIN 250 MG TABLET PO SCH (09:00)
== END 2023-07-06 16:00 | DRG 193 ==
LOC: EDUNIT# 04:42 → ER 04:43 → CSD 06:30 → 4TH 16:33
PROVIDERS: ADMIT Internal Medicine; ATTEND Internal Medicine
DX: J18.9 Pneumonia, unspecified organism (principal); I21.A1 Myocardial infarction type 2; J96.21 Acute and chronic respiratory failure with hypoxia; J44.1 Chronic obstructive pulmonary disease with (acute) exacerbation; F19.20 Other psychoactive substance dependence, uncomplicated; J44.0 Chronic obstructive pulmonary disease with (acute) lower respiratory infection; F17.210 Nicotine dependence, cigarettes, uncomplicated; Z79.82 Long term (current) use of aspirin; Z79.899 Other long term (current) drug therapy; Z99.81 Dependence on supplemental oxygen; E78.00 Pure hypercholesterolemia, unspecified; F03.90 Unspecified dementia, unspecified severity, without behavioral disturbance, psychotic disturbance, mood disturbance, and anxiety; K21.9 Gastro-esophageal reflux disease without esophagitis; I50.9 Heart failure, unspecified; I11.0 Hypertensive heart disease with heart failure; R77.8 Other specified abnormalities of plasma proteins; Z66 Do not resuscitate; R53.81 Other malaise; I35.0 Nonrheumatic aortic (valve) stenosis; Z20.822 Contact with and (suspected) exposure to COVID-19
CPT/HCPCS: 36415; 51702; 71045; 80053; 80061; 83605; 83735; 83880; 84484; 85007; 85025; 85027; 85610; 85730; 87636; 93005; 93041; 93306; 94640

== ENCOUNTER 2023-08-21 12:22 | Observation (INO) | payer MEDICARE, MEDICAID ==
[~2023-08-21] VITALS: Ht 160 cm; Wt 59.0 kg
[~2023-08-21 12:22] MED LIST changes: +ACET-2267 PO; +ALBU2.5V4 INH; +BUPR150T24 PO; +CEFD300C3 PO; +CHOL500044 PO; +DICL100G60 TP; +FERR325T18 PO; +FURO-124 PO; +IBUP-1779 PO; +IPRA4AER IH; +LIDO1ADH78 TP; +METO50TA15 PO; +MULT15TA3 PO; +[UNRECOGNIZED DRUG - OTHER] PO
[2023-08-21] MEDS ORDERED: NS IV 500 ML 500 ML IV ONE (12:45)
[2023-08-21 12:46] LABS: BASOPHILS % (AUTO) 0 % (0-10); EOSINOPHILS % (AUTO) 0 % (0-10); HEMATOCRIT 37 % (35-52); HEMOGLOBIN 12.3 g/dL (11.5-16.0); LYMPHOCYTES # (AUTO) 0.5 10^3/uL (1.0-4.0); LYMPHOCYTES % (AUTO) 2 % (12-44); MEAN CORPUSCULAR HEMOGLOBIN 29 pg (25-34); MEAN CORPUSCULAR HGB CONC 34 g/dL (32-36); MEAN CORPUSCULAR VOLUME 87 fL (80-99); MEAN PLATELET VOLUME 12.2 fL (9.0-12.2); MONOCYTES # (AUTO) 1.1 10^3/uL (0.0-1.0); MONOCYTES % (AUTO) 4 % (0-12); NEUTROPHILS # (AUTO) 22.8 10^3/uL (1.8-7.8); NEUTROPHILS % (AUTO) 92 % (42-75); PLATELET COUNT 295 10^3/uL (130-400); WHITE BLOOD COUNT 24.8 10^3/uL (4.3-11.0)
[2023-08-21 12:50] LABS: INR 1.1 (0.8-1.4); PROTHROMBIN TIME PATIENT 14.8 SEC (12.2-14.7)
[2023-08-21 12:52] LABS: ALBUMIN 3.5 GM/DL (3.2-4.5)
[2023-08-21 12:53] LABS: POTASSIUM 3.9 MMOL/L (3.6-5.0)
[2023-08-21 12:54] LABS: CALCIUM 10.3 MG/DL (8.5-10.1)
[2023-08-21 12:55] LABS: TOTAL PROTEIN 6.6 GM/DL (6.4-8.2)
[2023-08-21 12:57] LABS: BILIRUBIN,TOTAL 1.3 MG/DL (0.1-1.0)
[2023-08-21 12:59] LABS: CREATININE SERUM 1.95 MG/DL (0.60-1.30)
[2023-08-21 13:02] LABS: MAGNESIUM 2.2 MG/DL (1.6-2.4)
[2023-08-21 13:12] LABS: LYMPHOCYTES % (MANUAL) 2 %; MONOCYTES % (MANUAL) 1 %; NEUTROPHILS % (MANUAL) 97 %
[2023-08-21 13:13] LABS: RBC MORPH NORMAL
[2023-08-21 13:42] LABS: BILIRUBIN,URINE NEGATIVE (NEGATIVE); CLARITY,URINE CLEAR; COLOR,URINE YELLOW; GLUCOSE, URINE (UA) NEGATIVE (NEGATIVE); KETONES,URINE NEGATIVE (NEGATIVE); LEUKOCYTE ESTERASE ,URINE NEGATIVE (NEGATIVE); NITRITE,URINE NEGATIVE (NEGATIVE); PH,URINE 5.5 (5-9); PROTEIN,URINE 1+ (NEGATIVE); RBC,URINE 0-2 /HPF; WBC,URINE RARE /HPF
[2023-08-21 13:43] LABS: AMORPHOUS SEDIMENT,UR LARGE AMOR URATES /LPF; BACTERIA,URINE TRACE /HPF; GRANULAR CASTS,URINE 0-2 /LPF; HYALINE CASTS, URINE 0-2 /LPF
--- NOTE | 2023-08-21 14:00 | Diagnostic Imaging Report ---
INDICATION: Chest pain. COMPARED: 08/01/2023 FINDINGS: The heart is enlarged. There is vascular congestion. There is trace right basilar atelectasis. There is blunting of the left angle suspicious for a small left effusion. IMPRESSION: Cardiomegaly and congestion with probable small left effusion and slight basilar atelectasis. Dictated by: Dictated on workstation # [id number]
--- NOTE | 2023-08-21 14:55 | Diagnostic Imaging Report ---
PROCEDURE: CT abdomen and pelvis without contrast. TECHNIQUE: Multiple contiguous axial images were obtained through the abdomen and pelvis without the use of intravenous contrast. Auto Exposure Controls were utilized during the CT exam to meet ALARA standards for radiation dose reduction. INDICATION: Abdominal pain. COMPARISON: CT abdomen pelvis without contrast 04/06/2019. FINDINGS: Short segment small bowel wall thickening and adjacent inflammatory change in the left lower quadrant. Although there is also advanced colonic diverticulosis, this inflammatory change appears centered about the small bowel. No evidence of small bowel obstruction. Small amount of free fluid dependently in the pelvis. No free intraperitoneal air. Lung bases are unremarkable. Large esophageal hiatal hernia. The liver, gallbladder, pancreas, spleen, adrenals, kidneys and, collecting systems and bladder demonstrate no acute findings on this noncontrast exam. Hysterectomy. No evidence of appendicitis. No free intraperitoneal air. No lymphadenopathy. No acute osseous findings. IMPRESSION: 1. Short segment bowel wall thickening and adjacent inflammatory change about the proximal to mid small bowel in the left lower quadrant. Findings are suspicious for an enteritis. However, recommend follow-up as a neoplastic process cannot be excluded. No high-grade bowel obstruction. Small amount of free fluid pelvis. 2. Advanced colonic diverticulosis. This appears separate from the inflammatory change about the small bowel. 3. Large esophageal hiatal hernia. Dictated by: Dictated on workstation # [id number]
[2023-08-21] MEDS ORDERED: cefTRIAXone IV/IM 1,000 MG in NS (IVPB) 50 ML 50 ML IV STA (15:38)
[2023-08-21] MEDS ORDERED: metroNIDAZOLE 500MG/100ML IVPB 100 ML IV ONE (15:45)
--- NOTE | 2023-08-21 16:06 | ED General ---
General Chief Complaint: Abdominal/GI Problems Stated Complaint: ABD PAIN Nursing Triage Note: ABD PAIN REPORTED FROM [facility] Source of Information: Patient Exam Limitations: No Limitations History of Present Illness Date Seen by Provider: Aug 21, 2023 Time Seen by Provider: 12:32 Initial Comments Here by EMS with report of increased abdominal pain today. She does have advanced dementia. She is moaning but not really answering questions but normally is much more interactive per EMS per the custodial staff. She does follow with Dr. HINOJOSA. Patient apparently had flu shot on Thursday and had similar episode after flu shot last year as well. No report of vomiting or di arrhea. Additional medical problems include aortic stenosis, history of pneumonia and CHF, diabetes, reflux disease, hypertension, reflux disease, chronic back pain and urinary tract infections. Patient does have DNR on file with the facility. Patient is not really answering questions. She will curl up when we try to get her to sit up straight. She is protecting her airway well and is resting peacefully when we are not trying to evaluate her. Timing/Duration: 12 Hours Severity: Moderate Allergies and Home Medications Allergies Coded Allergies: Penicillins (Verified Allergy, Severe, ANAPHYLAXIS, 07/05/23) Per Dr. Hinojosa patient has had Cephalosporins in the past without issue Patient Home Medication List Home Medication List Reviewed: Yes Acetaminophen (Tylenol Extra Strength) 500 Mg Tablet, 500 MG PO Q6H PRN for PAIN-MILD (1-4), (Reported) Entered as Reported by: RAIANE BONDS on 07/05/23 1626 Albuterol Sulfate (Albuterol Sulfate) 2.5 Mg/3 Ml (0.083 %) Vial.neb, 2.5 MG INH Q4H PRN for SHORTNESS OF BREATH, (Reported) Entered as Reported by: ARIANE BONDS on 07/05/23 1626 Albuterol/Ipratropium (Combivent Respimat Inhal Cecil) 20 Mcg-100 Mcg/Actuation Aero, 2 PUFF IH Q8H PRN for SHORTNESS OF BREATH, (Reported) Entered as Reported by: ARIANE BONDS on 07/05/23 1626 Albuterol/Ipratropium (Combivent Respimat Inhal Cecil) 20 Mcg-100 Mcg/Actuation Aero, 2 PUFF IH BID, (Reported) Entered as Reported by: KALIA PATE on 07/31/23 1402 Aspirin (Aspirin EC) 81 Mg Tablet.dr, 81 MG PO DAILY, (Reported) Entered as Reported by: DOLLY SIDDIQUI on 11/29/18 1620 Atorvastatin Calcium (Atorvastatin Calcium) 40 Mg Tablet, 40 MG PO HS, (Reported) Entered as Reported by: DOLLY SIDDIQUI on 01/12/18 1113 Budesonide/Formoterol Fumarate (Symbicort 160-4.5 Mcg Inhaler) 10.2 Gm Hfa.aer.ad, 2 PUFF IH BID Prescribed by: RIGOBERTO HINOJOSA on 12/03/18 1327 Bupropion HCl (Bupropion Xl) 150 Mg Tab.er.24h, 150 MG PO DAILY, (Reported) Entered as Reported by: ARIANE BONDS on 07/05/23 162 Cefdinir (Cefdinir) 300 Mg Capsule, 300 MG PO BID Prescribed by: BOBO BUSTILLOS on 08/03/23 0857 Cephalexin (Cephalexin) 250 Mg Capsule, 250 MG PO DAILY Prescribed by: BOBO BUSTILLOS on 08/03/23 0857 Diclofenac Sodium (Diclofenac Sodium) 1 % Gel..gram., 1 APPLIC TP Q6H PRN for INFLAMMATION, (Reported) Entered as Reported by: ARIANE BONDS on 07/05/23 162 Escitalopram Oxalate (Escitalopram Oxalate) 5 Mg Tablet, 5 MG PO DAILY Prescribed by: RIGOBERTO HINOJOSA on 08/08/22 1109 Ferrous Sulfate (Ferrous Sulfate) 325 Mg (65 Mg Iron) Tablet, 325 MG PO DAILY, (Reported) Entered as Reported by: ARIANE BONDS on 07/05/23 1626 Furosemide (Lasix) 40 Mg Tablet, 40 MG PO Q48H Prescribed by: BOBO BUSTILLOS on 08/03/23 0857 Ibuprofen (Ibuprofen) 400 Mg Tablet, 400 MG PO Q6H PRN for PAIN-MILD (1-4), (Reported) Entered as Reported by: ARIANE BONDS on 07/05/23 162 L. Rhamnosus GG/Inulin (Culturelle Digest 12B Cell Cap) 12 Billion Cell-200 Mg Capsule, 1 EACH PO DAILY, (Reported) Entered as Reported by: KALIA PATE on 07/31/23 1402 Lidocaine (Lidocaine) 4 % Adh..patch, 1 EACH TP DAILY PRN for LOWER BACK PAIN, (Reported) Entered as Reported by: ARIANE BONDS on 07/05/23 162 Losartan Potassium (Losartan Potassium) 25 Mg Tablet, 25 MG PO DAILY, (Reported) Entered as Reported by: KALIA PATE on 07/31/23 1402 Metoprolol Tartrate (Metoprolol Tartrate) 50 Mg Tablet, 50 MG PO HS, (Reported) Entered as Reported by: ARIANE BONDS on 07/05/23 162 Multivit-Min/Ferrous Fumarate (Multivitamin with Minerals Tab) 15 Mg Iron Tablet , 1 EA PO DAILY, (Reported) Entered as Reported by: ARIANE BONDS on 07/05/23 162 Pantoprazole Sodium (Pantoprazole Sodium) 20 Mg Tablet.dr, 20 MG PO DAILY, (Reported) Entered as Reported by: DOLLY SIDDIQUI on 11/29/18 1616 Review of Systems Review of Systems Constitutional: see HPI; No fever Gastrointestinal: abdominal pain (Upper) Unable to get complete review of systems or significant review of systems due to underlying dementia and medical condition. Past Klbefex-Kakxrx-Neavsf Hx Patient Social History Tobacco Use?: No Use of E-Cig and/or Vaping dev: No Substance use?: No Alcohol Use?: No Pt feels they are or have been: Unable to obtain Seasonal Allergies Seasonal Allergies: No Past Medical History Surgery/Hospitalization HX: NONRHEUMATIC AORTIC VALVE STENOSIS, TYPE 2 DIABETES, HYPERLIPIDEMIA, ANXIETY, DEMENTIA, COPD Surgeries: Yes (KIDNEY STONE REMOVAL; CARPAL TUNNEL SURGERY; HYSTERECTOMY) Hysterectomy, Orthopedic, Renal Respiratory: Yes (COPD O2 DEPENDENT AT 2L/NC) COPD Currently Using CPAP: No Currently Using BIPAP: No Cardiac: Yes High Cholesterol, Hypertension Neurological: Yes Dementia Reproductive Disorders: Yes Genitourinary: Yes Kidney Stones, UTI-Chronic Gastrointestinal: Yes Gastroesophageal Reflux, Diverticulosis Musculoskeletal: No Endocrine: No HEENT: Yes Hearing Impairment: Hard of Hearing Cancer: No Psychosocial: No Integumentary: No Blood Disorders: No Family Medical History Reviewed Nursing Family Hx SOCIAL HISTORY: -SMOKING--SMOKED 1 PPD IN PAST, NOW SMOKES 1/2 PPD--EVEN IN HALF-WAY -ETOH DENIES USE -DRUGS DENIES USE Physical Exam-Suspected Sepsis Physical Exam Vital Signs Vital Signs - First Documented Capillary Refill : Less Than 3 Seconds Blood Pressure Mean: 96 Height, Weight, BMI Height: 5'2.00" Weight: 160lbs. 0oz. 72.496805ql; 27.00 BMI Method:Stated General Appearance: WD/WN, Mild Distress (When pressing on the abdomen but otherwise resting when not) HEENT: PERRL/EOMI, Pharynx Normal Neck: Non Tender, Supple Respiratory: Lungs Clear, Normal Breath Sounds Cardiovascular: Regular Rate, Rhythm, No Murmur Gastrointestinal: Soft, Tenderness (Mild tenderness in the upper quadrants without rebound or guarding) Back: Normal Inspection, No CVA Tenderness, No Vertebral Tenderness Extremity: Normal Range of Motion, Non Tender Neurologic/Psychiatric: Other (Response to light touch in pain. Otherwise not answering questions.) Skin: normal color, warm/dry Focused Exam Lactate Level 08/21/23 13:18: Lactic Acid Level 1.38 Lactic Acid Level Progress/Results/Core Measures Suspected Sepsis Recent Fever Within 48 Hours: No Infection Criteria Present: None New/Unexplained Altered Menta: Yes SIRS Temperature: Pulse: 82 Respiratory Rate: 20 Laboratory Tests 08/21/23 12:33: White Blood Count 24.8H Blood Pressure 147 /71 Mean: 96 08/21/23 13:18: Lactic Acid Level 1.38 Laboratory Tests 08/21/23 12:33: Creatinine 1.95H, INR Comment 1.1, Platelet Count 295, Total Bilirubin 1.3H Results/Orders Lab Results Laboratory Tests Test 08/21/23 12:33 08/21/23 13:10 08/21/23 13:18 08/21/23 15:43 Range/Units White Blood Count 24.8 H 4.3-11.0 10^3/uL Red Blood Count 4.19 3.80-5.11 10^6/uL Hemoglobin 12.3 11.5-16.0 g/dL Hematocrit 37 35-52 % Mean Corpuscular Volume 87 80-99 fL Mean Corpuscular Hemoglobin 29 25-34 pg Mean Corpuscular Hemoglobin Concent 34 32-36 g/dL Red Cell Distribution Width 15.7 H 10.0-14.5 % Platelet Count 295 130-400 10^3/uL Mean Platelet Volume 12.2 9.0-12.2 fL Immature Granulocyte % (Auto) 1 % Neutrophils (%) (Auto) 92 H 42-75 % Lymphocytes (%) (Auto) 2 L 12-44 % Monocytes (%) (Auto) 4 0-12 % Eosinophils (%) (Auto) 0 0-10 % Basophils (%) (Auto) 0 0-10 % Neutrophils # (Auto) 22.8 H 1.8-7.8 10^3/uL Lymphocytes # (Auto) 0.5 L 1.0-4.0 10^3/uL Monocytes # (Auto) 1.1 H 0.0-1.0 10^3/uL Eosinophils # (Auto) 0.0 0.0-0.3 10^3/uL Basophils # (Auto) 0.0 0.0-0.1 10^3/uL Immature Granulocyte # (Auto) 0.4 H 0.0-0.1 10^3/uL Neutrophils % (Manual) 97 % Lymphocytes % (Manual) 2 % Monocytes % (Manual) 1 % Blood Morphology Comment NORMAL Prothrombin Time 14.8 H 12.2-14.7 SEC INR Comment 1.1 0.8-1.4 Activated Partial Thromboplast Time 31 24-35 SEC Sodium Level 136 135-145 MMOL/L Potassium Level 3.9 3.6-5.0 MMOL/L Chloride Level 100 98-107 MMOL/L Carbon Dioxide Level 20 L 21-32 MMOL/L Anion Gap 16 H 5-14 MMOL/L Blood Urea Nitrogen 66 H 7-18 MG/DL Creatinine 1.95 H 0.60-1.30 MG/DL Estimat Glomerular Filtration Rate 25 BUN/Creatinine Ratio 34 Glucose Level 138 H 70-105 MG/DL Calcium Level 10.3 H 8.5-10.1 MG/DL Corrected Calcium 10.7 H 8.5-10.1 MG/DL Magnesium Level 2.2 1.6-2.4 MG/DL Total Bilirubin 1.3 H 0.1-1.0 MG/DL Aspartate Amino Transf (AST/SGOT) 28 5-34 U/L Alanine Aminotransferase (ALT/SGPT) 13 0-55 U/L Alkaline Phosphatase 93 40-136 U/L Troponin I 0.060 H 0.064 H <0.028 NG/ML Total Protein 6.6 6.4-8.2 GM/DL Albumin 3.5 3.2-4.5 GM/DL Lipase 22 8-78 U/L Urine Color YELLOW Urine Clarity CLEAR Urine pH 5.5 5-9 Urine Specific [place] 1.025 H 1.016-1.022 Urine Protein 1+ H NEGATIVE Urine Glucose (UA) NEGATIVE NEGATIVE Urine Ketones NEGATIVE NEGATIVE Urine Nitrite NEGATIVE NEGATIVE Urine Bilirubin NEGATIVE NEGATIVE Urine Urobilinogen 1.0 < = 1.0 MG/DL Urine Leukocyte Esterase NEGATIVE NEGATIVE Urine RBC (Auto) 1+ H NEGATIVE Urine RBC 0-2 /HPF Urine WBC RARE /HPF Urine Crystals PRESENT H /LPF Urine Amorphous Sediment LARGE JOANA URATES H /LPF Urine Bacteria TRACE /HPF Urine Casts PRESENT /LPF Urine Hyaline Casts 0-2 H /LPF Urine Granular Casts 0-2 H /LPF Urine Mucus NEGATIVE /LPF Urine Culture Indicated CULTURE PENDING Lactic Acid Level 1.38 0.50-2.00 MMOL/L My Orders Orders - REVA STEINBERG MD Straight Cath For Spec.-Adult (08/21/23 12:37) Cbc And Automated Diff (08/21/23 12:37) Comprehensive Metabolic Panel (08/21/23 12:37) Blood Culture (08/21/23 12:37) Sputum Culture (08/21/23 12:37) Urinalysis (08/21/23 12:37) Urine Culture (08/21/23 12:37) Protime With Inr (08/21/23 12:37) Partial Thromboplastin Time (08/21/23 12:37) Chest 1 View, Ap/Pa Only (08/21/23 12:37) Ed Iv/Invasive Line Start (08/21/23 12:37) Ekg Tracing (08/21/23 12:37) Troponin I Gabriella (08/21/23 12:37) Vital Signs Adult Sepsis Patie Q15M (08/21/23 12:37) O2 (08/21/23 12:37) Remove Rings In Anticipation O (08/21/23 12:37) Lactic Acid Analyzer (08/21/23 12:37) Ns Iv 500 Ml (Ns Iv 500 Ml) (08/21/23 12:45) Lipase (08/21/23 12:37) Magnesium (08/21/23 12:37) Manual Differential (08/21/23 12:33) Ct Abdomen/Pelvis Wo (08/21/23 14:02) Troponin I Gabriella (08/21/23 15:37) Ceftriaxone Iv/Im (Ceftriaxone Iv/Im) (08/21/23 15:38) Metronidazole 500mg/100ml Ivpb (Metronid (08/21/23 15:45) Code/Resuscitation (08/21/23 16:32) Ed Admission (Communication) (08/21/23 16:32) Medications Given in ED Current Medications Medications Dose Ordered Sig/Alexandro Route Start Time Stop Time Status Last Admin Dose Admin Metronidazole 100 ml @ 100 mls/hr ONCE ONCE IV 08/21/23 15:45 08/21/23 16:44 DC 08/21/23 16:20 100 MLS/HR Sodium Chloride 500 ml @ 0 mls/hr Q0M ONCE IV 08/21/23 12:45 08/21/23 12:46 DC 08/21/23 12:46 0 MLS/HR Vital Signs/I&O 08/21/23 08/21/23 08/21/23 12:47 12:47 12:47 Temp 36.9 36.7 Pulse 86 82 Resp 20 20 B/P (MAP) 147/71 147/71 (96) Pulse Ox 98 94 98 O2 Delivery Simple Mask Room Air Capillary Refill : Less Than 3 Seconds Blood Pressure Mean: 96 Progress Note : Progress Note Seen and evaluated. IV, labs including CBC, CMP, coags, UA, urine culture blood culture, lactic acid and troponin ordered. EKG and chest x-ray ordered. Normal saline 500 mL bolus ordered. We will check lipase and magnesium as well. Monitor patient. This was ordered under sepsis protocol with additions. Differential diagnosis includes intra-abdominal pathology, UTI, abdominal infection, dehydration, electrolyte abnormality, cardiac dysfunction 1403: CT abdomen pelvis ordered without contrast due to elevated serum creatinine. Labs reviewed and show CBC of 24 with normal hemoglobin and normal platelets. She does have ANC elevation of 22.8. Coags show slight elevation of PTT without elevation in INR APTT. Chemistry shows normal electrolytes with el evated serum creatinine that is chronic at 1.95. Blood sugar was 138. Magnesium is normal. Troponin is slightly bumped at 0.06 which is likely chronic. Lipase is normal. UA shows no significant abnormality. Chest x-ray reviewed by me shows some vascular congestion without infiltrate on my interpretation. Monitor patient. 1539: I did discuss the case with Dr. Serna, on-call for family practice service. We did discuss admission given her elevated white count. We have no cardiology services available this weekend and she would like repeat troponin. CT scan completed and reviewed by me and shows diverticular disease and there is question of bowel wall thickening on my interpretation without free air. CT report reviewed and discussed with Dr. Serna. We will go ahead and initiate Rocephin 1 g IV did metronidazole 500 mg IV for enteritis given the elevated white count. Pending repeat troponin. 1635: Repeat troponin shows essentially stable results at 0.064. Dr. Serna accepts patient for admission, observation status. She will write orders. Patient is DNR and this was ordered. ECG Initial ECG Impression Date: Aug 21, 2023 Initial ECG Impression Time: 12:45 Initial ECG Rate: 90 Initial ECG Rhythm: Normal Sinus Initial ECG Impression: Normal Comment Sinus rhythm with normal axis. LVH. No evidence of ST elevation [place]. Interpreted by me. Diagnostic Imaging Diagonstic Imaging: CT Plain Films/CT/US/NM/MRI: abdomen, pelvis Diagonstic Imaging: Xray Plain Films/CT/US/NM/MRI: chest Comments [facility], [facility]. [place], [place] NAME: ADAN ALAS [facility] REC#: [id number] PT STATUS: REG ER : 1940 PHYSICIAN: REVA STEINBERG MD ADMIT DATE: 08/21/23/ER Signed Date of Exam:08/21/23 CHEST 1 VIEW, AP/PA ONLY INDICATION: Chest pain. COMPARED: 08/01/2023 FINDINGS: The heart is enlarged. There is vascular congestion. There is trace right basilar atelectasis. There is blunting of the left angle suspicious for a small left effusion. IMPRESSION: Cardiomegaly and congestion with probable small left effusion and slight basilar atelectasis. Dictated by: Dictated on workstation # [id number] Dict: 08/21/23 1358 Trans: 08/21/231714 [facility] [id number] Interpreted by: KIRSTIN WISE Electronically signed by: KIRSTIN WISE 08/21/235 Departure Communication (Admissions) Time/Spoke to Admitting Phy: 16:39 Impression Primary Impression: Enteritis Additional Impression: Abdominal pain Qualified Codes: R10.10 - Upper abdominal pain, unspecified Disposition: ADMITTED INPATIENT Condition: Stable Admissions Decision to Admit Reason: Admit from ER (General) Decision to Admit/Date: Aug 21, 2023 Time/Decision to Admit Time: 16:39 Departure-Patient Inst. Referrals: RIGOBERTO HINOJOSA DO (PCP/Family) Primary Care Physician REVA STEINBERG MD Aug 21, 2023 16:06
[2023-08-21] MEDS ORDERED: ONDANSETRON INJECTION 4 MG/2 ML (SDV) IV PRN (19:00)
[2023-08-21] MEDS ORDERED: MILK OF MAGNESIA 400 MG/5 ML 30 ML UDC PO PRN (19:00)
[2023-08-21] MEDS ORDERED: LACTULOSE SYRUP 10GM/15ML 30ML UDC PO PRN (19:00)
[2023-08-21] MEDS ORDERED: MELATONIN 3 MG TABLET PO PRN (19:00)
[2023-08-21] MEDS ORDERED: CALCIUM CARBONATE 500 MG CHEW TABLET PO PRN (19:00)
[2023-08-21] MEDS ORDERED: ANTACID SUSPENSION 30 ML UDC PO PRN (19:00)
[2023-08-21 19:06] VITALS: BP 147/71
[2023-08-21] MEDS ORDERED: RT-Ipratropium/Albuterol NEB 3 ML VIAL INH PRN (19:15)
[2023-08-21 19:24] VITALS: BP 157/73
[2023-08-21] MEDS: NS IV 1000 ML 1,000 ML IV SCH (19:48)
[2023-08-21] MEDS: ACETAMINOPHEN 325 MG TABLET PO PRN (19:49)
--- NOTE | 2023-08-21 20:15 | History & Physical-Hospitalist ---
QUIQUE EPPS 08/21/23 2015: History of Present Illness HPI/Chief Complaint HPI per ED: Here by EMS with report of increased abdominal pain today. She does have advanced dementia. She is moaning but not really answering questions but normally is much more interactive per EMS per the [facility] staff. She does follow with Dr. HINOJOSA. Patient apparently had flu shot on Thursday and had similar episode after flu shot last year as well. No report of vomiting or diarrhea. Additional medical problems include aortic stenosis, history of pneumonia and CHF, diabetes, reflux disease, hypertension, reflux disease, chronic back pain and urinary tract infections. Patient does have DNR on file with the facility. Patient is not really answering questions. She will curl up when we try to get her to sit up straight. She is protecting her airway well and is resting peacefully when we are not trying to evaluate her. HPI: Pt was constantly drifting asleep and unable to remain awake for longer than a few seconds to answer any of my questions this morning around 8a.m. When we saw the pt again at a little after 10a.m., she was more alert but still had trouble answering questions. She was complaining about periumbilical pain but could not tell us if she had passed gas or had a BM recently. Abd/pelvis CT from yesterday showed likely enteritis of the prox to mid small bowel and a small amount of free fluid in the pelvis, as well as diverticulosis and a hiatal hernia. Source: patient Date Seen 08/21/23 Attending Physician Neelam Hinojosa DO PCP Admitting Physician: Julieta Serna MD Attending Physician: Julieta Serna MD Referring Physician Date of Admission Aug 21, 2023 at 18:30 Home Medications & Allergies Home Medications Reviewed patient Home Medication Reconciliation performed by pharmacy medication reconciliations master automotive technician and/or nursing. Patients Allergies have been reviewed. Allergies Allergies Coded Allergies Penicillins (Verified Allergy, Severe, ANAPHYLAXIS, 07/05/23) Per Dr. Hinojosa patient has had Cephalosporins in the past without issue Past Ocqffot-Wxbjya-Vpupzq Hx Patient Social History Tobacco Use?: No Use of E-Cig and/or Vaping dev: No Substance use?: No Alcohol Use?: No Pt feels they are or have been: Unable to obtain Immunizations Up To Date Date of Influenza Vaccine: Aug 03, 2023 Tetanus Booster (TDap): Less Than 5 Years Date of Pneumonia Vaccine: Sep 09, 2016 Seasonal Allergies Seasonal Allergies: No Current Status status: No status: No Advance Directives: Yes Advance Directive Location: Copy placed in chart Communicates: Gestures Primary Language: [place] Is interpretation needed?: No Sensory deficits: Speech impairment Past Medical History Surgeries: Hysterectomy, Orthopedic, Renal COPD Currently Using CPAP: No Currently Using BIPAP: No High Cholesterol, Hypertension Dementia Kidney Stones, UTI-Chronic Gastroesophageal Reflux, Diverticulosis Hearing Impairment: Hard of Hearing Blood Disorders: No Family Medical History Reviewed Nursing Family Hx SOCIAL HISTORY: -SMOKING--SMOKED 1 PPD IN PAST, NOW SMOKES 1/2 PPD--EVEN IN ASSISTED -ETOH DENIES USE -DRUGS DENIES USE Review of Systems ROS-Unable to Obtain: pt was not responsive to my questions Physical Exam Physical Exam Vital Signs Vital Signs - First Documented 08/21/23 08/21/23 19:06 19:24 O2 Flow Rate 2.00 FiO2 21 Capillary Refill : Less Than 3 Seconds Height, Weight, BMI Height: 5'2.00" Weight: 160lbs. 0oz. 72.074525gr; 23.04 BMI Method:Stated General Appearance: Chronically ill, Mild Distress (no distress this morning but then mild upon second encounter due to abd pain) HEENT: PERRL/EOMI; No Scleral Icterus (L), No Scleral Icterus (R) Neck: Non Tender; No JVD Respiratory: Chest Non Tender, Normal Breath Sounds, No Accessory Muscle Use, No Respiratory Distress Cardiovascular: Regular Rate, Rhythm, No Edema, No JVD, Systolic Murmur (severe ) Gastrointestinal: Soft, Distended (possibly just weight); No Guarding; Tenderness (periumbilical) Extremity: Non Tender, No Pedal Edema Neurologic/Psychiatric: No Alert, No Oriented x3 Skin: Warm/Dry, Ecchymosis (left hand) Results Results/Procedures Labs Laboratory Tests 08/21/23 12:33 08/22/23 04:35 Patient resulted labs reviewed. Assessment/Plan Assessment and Plan Non-septic Enteritis w/ likely infection (WBC 24.8 on 08/21 and 14.2 today after abx) Continue Metronidazole Continue Rocephin Severe aortic stenosis Monitor Pre-renal azotemia IV normal saline at 100mls at ml/hr Hypokalemia (3.3) PO K+ supplement when pt is able Anemia (Hgb 10.9) Monitor Small left effusion Monitor Diverticulosis Monitor Esophageal hiatal hernia Monitor DVT prophylaxis Lovenox 60mg SC q12h Resume diet when pt is able to safely eat JULIETA SERNA MD 08/22/23 1150: History of Present Illness Time Seen by a Provider: 11:46 Review of Systems Constitutional: see HPI Assessment/Plan Admission Diagnosis Enteritis Admission Status: Observation Assessment and Plan Pt presented to the hospital due to abd pain and altered mental status. Was found to have enteritis on imaging and JERSON. Admitted for IVF and IV abx. Her mentation has improved some this morning and she is able to answer some questions. States abd pain persists in mid abd. Leukocytosis improving. She does have known critical aortic stenosis. Last cardiology note from July states conservative management due to underlying dementia and comorbidities. Has a slight troponin elevation currently but is lower from where it was last month and has persisted for months and is likely due to her . Cardiology planned no intervention for that as well. She has no chest pain either. Supervisory-Addendum Brief Verification & Attestation Participated in pt care: history, MDM, physical Personally performed: exam, history, MDM, supervision of care Care discussed with: Medical Student Procedures: n/a Results interpretation: Verified all documentation Verification and Attestation of Medical Student E/M Service A medical student performed and documented this service in my presence. I reviewed and verified all information documented by the medical student and made modifications to such information, when appropriate. I personally performed the physical exam and medical decision making. Julieta Serna, Aug 23, 2023,12:27 QUIQUE EPPS Aug 21, 2023 20:15 JULIETA SERNA MD Aug 22, 2023 11:50
[2023-08-21] MEDS ORDERED: CALC-250 PO (21:53)
[2023-08-21] MEDS: metroNIDAZOLE 500MG/100ML IVPB 100 ML IV SCH (23:03)
[2023-08-21 23:04] VITALS: BP 148/65
[2023-08-22] VITALS (7 sets, daily range): BP systolic 160–191; BP diastolic 70–87
[2023-08-22 04:50] LABS: HEMATOCRIT 32 % (35-52); HEMOGLOBIN 10.9 g/dL (11.5-16.0); MEAN CORPUSCULAR HEMOGLOBIN 29 pg (25-34); MEAN CORPUSCULAR HGB CONC 34 g/dL (32-36); MEAN CORPUSCULAR VOLUME 87 fL (80-99); MEAN PLATELET VOLUME 11.4 fL (9.0-12.2); PLATELET COUNT 221 10^3/uL (130-400); WHITE BLOOD COUNT 14.2 10^3/uL (4.3-11.0)
[2023-08-22 05:10] LABS: CALCIUM 9.3 MG/DL (8.5-10.1); CREATININE SERUM 1.28 MG/DL (0.60-1.30); POTASSIUM 3.3 MMOL/L (3.6-5.0)
--- NOTE | 2023-08-22 09:32 | Physical Therapy Evaluation ---
PT Evaluation-General Medical Diagnosis Admission Date Aug 21, 2023 at 18:30 Medical Diagnosis: abdominal pain Onset Date: Aug 21, 2023 Therapy Diagnosis Therapy Diagnosis: generalized weakness/debility Height/Weight Height (Feet): 5 Height (Inches): 2.00 Weight (Pounds): 160 Weight (Ounces): 0 Precautions Precautions/Isolations: Fall Prevention, Standard Precautions Weight Bear Status Right Lower Extremity: Right Full Weight Bearing Left Lower Extremity: Left Full Weight Bearing Referral Physician: Kareem Reason for Referral: Evaluation/Treatment Medical History Pertinent Medical History: COPD, Dementia (advanced), HTN, Smoking Current History EMS from [place] due to abdominal pain Reviewed History: Yes Social History Home: Skilled Nursing Prior Prior Level of Function SCALE: Activities may be completed with or without assistive devices. 2-Jwluksuxjn-jtqosqx completes the activity by him/herself with no assistance from a helper. 5-Set-up or Clean-up Assistance-helper sets up or cleans up; patient completes activity. [place] assists only prior to or following the activity. 4-Supervision or Touching Assistance-helper provides verbal cues and/or touching/steadying and/or contact guard assistance as patient completes activity. Assistance may be provided throughout the activity or intermittently. 3-Partial/Moderate Assistance-helper does LESS THAN HALF the effort. [place] lif ts, holds or supports trunk or limbs, but provides less than half the effort. 2-Substantial/Maximal Assistance-helper does MORE THAN HALF the effort. [place] lifts or holds trunk or limbs and provides more than half the effort. 6-Rnuzbmzdz-fiuyji does ALL the effort. Patient does none of the effort to complete the activity. Or, the assistance of 2 or more helpers is required for the patient to complete the activity. If activity was not attempted, code reason: 7-Patient Refused. 9-Not Applicable-not attempted and the patient did not perform the activity before the current illness, exacerbation or injury. 10-Not Attempted due to Environmental Limitations-(lack of equipment, weather restraints, etc.). 88-Not Attempted due to Medical Conditions or Safety Concerns. unable to determine due to confusion PT Evaluation-Current Subjective Patient is in bed. Does respond to this PT. Objective Patient Orientation: Confused ROM/Strength ROM Lower Extremities bilateral LE WFL Strength Lower Extremities 3-/5 grossly bilateral LE (no formal testing due to patient unable to follow direction) Neuromuscular (Tone, Coordination, Reflexes) diminished due to weakness Sensory Vision: Functional Hearing: Functional Transfers Roll Left to Right (QC): 1 Sit to Lying (QC): 1 Lying to Sitting/Side of Bed(Q: 1 Balance Sitting Static: Poor Sitting Dynamic: Poor Assessment/Needs Patient will be seen short term by skilled PT to address functional strength and mobility to improve current LOF. Rehab Potential: Guarded PT Showroom Consultant Goals Fdc Goals PT Fdc Goals Time Frame: Aug 29, 2023 Roll Left & Right (QC): 3 Sit to Lying (QC): 3 Lying-Sitting on Side/Bed(QC): 3 Sit to Stand (QC): 3 Chair/Klh-ou-Gxzdv Xfer(QC): 3 PT Plan Problem List Problem List: Activity Tolerance, Functional Strength, Safety, Balance, Gait, Transfer, Bed Mobility Treatment/Plan Treatment Plan: Continue Plan of Care Treatment Plan: Bed Mobility, Education, Functional Activity Danny, Functional Strength, Gait, Safety, Therapeutic Exercise, Transfers Treatment Duration: Aug 29, 2023 Frequency: 5 times per week Estimated Hrs Per Day: .25 hour per day Time Time In: 800 Time Out: 813 DATE: Aug 22, 2023 Total Billed Treatment Time: 13 [facility] PT Aug 22, 2023 09:32
[2023-08-22] MEDS: ACETAMINOPHEN 325 MG TABLET PO PRN ×2 (10:29→15:51)
[2023-08-22] MEDS: NS IV 1000 ML 1,000 ML IV SCH (10:59)
[2023-08-22] MEDS: metroNIDAZOLE 500MG/100ML IVPB 100 ML IV SCH ×2 (12:23→23:56)
[2023-08-22] MEDS: cefTRIAXone IV/IM 1,000 MG in NS (IVPB) 50 ML 50 ML IV SCH (15:53)
[2023-08-22] MEDS ORDERED: hydrALAZINE INJECTION 20 MG/ML VIAL IV PRN (17:30)
[2023-08-22] MEDS ORDERED: DICLOFENAC 1% GEL 50 GM TUBE TP PRN (19:45)
[2023-08-22] MEDS: meTOprolol TARTRATE (IR) 50 MG TABLET PO SCH (21:11)
[2023-08-23] VITALS (8 sets, daily range): BP systolic 148–176; BP diastolic 74–83
[2023-08-23] MEDS: NS IV 1000 ML 1,000 ML IV SCH (03:38)
[2023-08-23 06:06] LABS: HEMATOCRIT 35 % (35-52); HEMOGLOBIN 11.1 g/dL (11.5-16.0); MEAN CORPUSCULAR HEMOGLOBIN 29 pg (25-34); MEAN CORPUSCULAR HGB CONC 32 g/dL (32-36); MEAN CORPUSCULAR VOLUME 89 fL (80-99); MEAN PLATELET VOLUME 11.6 fL (9.0-12.2); PLATELET COUNT 257 10^3/uL (130-400)
[2023-08-23 06:23] LABS: CALCIUM 9.1 MG/DL (8.5-10.1); CREATININE SERUM 0.8 MG/DL (0.60-1.30); POTASSIUM 3.2 MMOL/L (3.6-5.0)
[2023-08-23] MEDS: buPROPion SR 150 MG TABLET PO SCH (08:45)
[2023-08-23] MEDS: LOSARTAN 25 MG TABLET PO SCH (08:45)
[2023-08-23] MEDS: LIDOCAINE 4% PATCH TOP SCH (08:45)
[2023-08-23] MEDS: ASPIRIN enteric coated 81MG TABLET PO SCH (08:45)
[2023-08-23] MEDS: VITAMIN D3 125 MCG (5,000 UNITS) TABLET PO SCH (08:45)
[2023-08-23] MEDS: PANTOPRAZOLE 20 MG TABLET PO SCH (08:45)
[2023-08-23] MEDS ORDERED: POTASSIUM CHLORIDE 20 MEQ TABLET PO ONE (10:00)
[2023-08-23] MEDS: FLUTICASONE/VILANTEROL 200/25 MCG (7 DOSES) IH SCH (10:52)
--- NOTE | 2023-08-23 11:01 | Progress Note - Hospitalist ---
QUIQUE EPPS 08/23/23 1101: Subjective HPI/CC On Admission HPI per ED: Here by EMS with report of increased abdominal pain today. She does have advanced dementia. She is moaning but not really answering questions but normally is much more interactive per EMS per the halfway staff. She does follow with Dr. ROSAS. Patient apparently had flu shot on Thursday and had similar episode after flu shot last year as well. No report of vomiting or diarrhea. Additional medical problems include aortic stenosis, history of pneumonia and CHF, diabetes, reflux disease, hypertension, reflux disease, chronic back pain and urinary tract infections. Patient does have DNR on file with the facility. Patient is not really answering questions. She will curl up when we try to get her to sit up straight. She is protecting her airway well an d is resting peacefully when we are not trying to evaluate her. HPI: Pt was constantly drifting asleep and unable to remain awake for longer than a few seconds to answer any of my questions this morning around 8a.m. When we saw the pt again at a little after 10a.m., she was more alert but still had trouble answering questions. She was complaining about periumbilical pain but could not tell us if she had passed gas or had a BM recently. Abd/pelvis CT from yesterday showed likely enteritis of the prox to mid small bowel and a small amount of free fluid in the pelvis, as well as diverticulosis and a hiatal hernia. Subjective/Events-last exam Pt is an 83F with dementia. She was sitting in her chair eating pancakes and eggs this morning and a lot more alert than yesterday. Pt does not know why she is here and states she feels fine with nothing wrong. Pt repeatedly asked what hospital we were at and would forget after being told. Pt has enteritis w/ likely infectious cause and is on abx. She was in no abd pain at rest but was tender in the periumbilical and RLQ on PE. Pt states she had a BM this morning that was non-bloody, non-black. Upon revisiting the patient a few hours later, she seemed a little short of breath with a possible inspiratory stridor but otherwise was the same. She was not on any supplemental oxygen at that time. Review of Systems General: No Chills, No Night Sweats HEENT: No Head Aches, No Visual Changes Pulmonary: Dyspnea; No Cough Cardiovascular: No: Chest Pain, Palpitations Gastrointestinal: Abdominal Pain; No: Nausea, Vomiting Genitourinary: No Dysuria, No Frequency, No Hematuria Musculoskeletal: No: neck pain, back pain Neurological: Confusion (dementia); No: Weakness, Numbness Focused Exam Lactate Level 08/21/23 13:18: Lactic Acid Level 1.38 Objective Exam Vital Signs Vital Signs Date Time Temp Pulse Resp B/P (MAP) Pulse Ox O2 Delivery O2 Flow Rate FiO2 08/23/23 08:30 95 Room Air 08/23/23 07:34 36.9 75 22 165/83 (110) 08/23/23 00:11 08/21/23 19:06 21 Capillary Refill : Less Than 3 Seconds General Appearance: No Apparent Distress, WD/WN HEENT: PERRL/EOMI; No Scleral Icterus (L), No Scleral Icterus (R) Neck: Non Tender; No JVD Respiratory: Lungs Clear, No Accessory Muscle Use, Respiratory Distress (mild SOB), Stridor (inspiratory) Cardiovascular: Regular Rate, Rhythm, No Edema, No JVD, Systolic Murmur (severe ) Gastrointestinal: Soft; No Guarding, No Rebound; Tenderness (periumbilical and RLQ) Extremity: Non Tender, No Pedal Edema Neurologic/Psychiatric: Alert, Disoriented (did not know where we were or what year it was, thought it was 19-something) Skin: Warm/Dry, Ecchymosis (right hand) Results/Procedures Lab Laboratory Tests 08/23/23 05:30 Patient resulted labs reviewed. Assessment/Plan Assessment and Plan Assess & Plan/Chief Complaint Non-septic Enteritis w/ likely infection (WBC 24.8 -> 14.2 -> 13 over last 3 days) Continue Metronidazole Continue Rocephin Hypoglycemia (62) Accu-cheks to see if her eating is resolving the issue Give orange juice or soda if needed Severe aortic stenosis Monitor Pre-renal azotemia IV normal saline at 100mls at ml/hr HTN Continue Metoprolol 50mg PO Continue Hydralazine PRN Hypokalemia (3.3 -> 3.2 over last 2 days) PO K+ supplement Anemia (Hgb 12.3 -> 10.9 -> 11.1 over last 3 days) Monitor Dementia Small left effusion Monitor Diverticulosis Monitor Esophageal hiatal hernia Monitor DVT prophylaxis Lovenox 60mg SC q12h Weakness PT Continue normal diet JULIETA SERNA MD 08/23/23 1231: Assessment/Plan Assessment and Plan Assess & Plan/Chief Complaint Pt reports doing better today. Still some mild abd pain but better than yesterday. Mentation much improved compared to yesterday. If continues to improve may be able to DC back to [place] tomorrow. Will add accuchecks due to mild hypoglycemia this AM but eating much betetr today. Supervisory-Addendum Brief Verification & Attestation Participated in pt care: history, MDM, physical Personally performed: exam, history, MDM, supervision of care Care discussed with: Medical Student Procedures: n/a Results interpretation: Verified all documentation Verification and Attestation of Medical Student E/M Service A medical student performed and documented this service in my presence. I reviewed and verified all information documented by the medical student and made modifications to such information, when appropriate. I personally performed the physical exam and medical decision making. Julieta Serna, Aug 23, 2023,12:28 QUIQUE EPPS Aug 23, 2023 11:01 JULIETA SERNA MD Aug 23, 2023 12:31
[2023-08-23] MEDS: metroNIDAZOLE 500MG/100ML IVPB 100 ML IV SCH (12:07)
[2023-08-23] MEDS: ENOXAPARIN 40 MG/0.4 ML SYRINGE SQ SCH (14:25)
[2023-08-23] MEDS: cefTRIAXone IV/IM 1,000 MG in NS (IVPB) 50 ML 50 ML IV SCH (14:47)
[2023-08-23] MEDS: RT-Ipratropium/Albuterol NEB 3 ML VIAL INH SCH ×2 (16:29→19:04)
[2023-08-23] MEDS: meTOprolol TARTRATE (IR) 50 MG TABLET PO SCH (19:56)
[2023-08-24] MEDS: metroNIDAZOLE 500MG/100ML IVPB 100 ML IV SCH ×2 (00:01→13:15)
[2023-08-24 00:03] VITALS: BP 156/72
[2023-08-24 04:09] VITALS: BP 145/80
[2023-08-24 05:11] LABS: HEMATOCRIT 32 % (35-52); HEMOGLOBIN 10.8 g/dL (11.5-16.0); MEAN CORPUSCULAR HEMOGLOBIN 29 pg (25-34); MEAN CORPUSCULAR HGB CONC 33 g/dL (32-36); MEAN CORPUSCULAR VOLUME 88 fL (80-99); MEAN PLATELET VOLUME 11.3 fL (9.0-12.2); PLATELET COUNT 269 10^3/uL (130-400); WHITE BLOOD COUNT 12.8 10^3/uL (4.3-11.0)
[2023-08-24 05:20] LABS: CALCIUM 9.8 MG/DL (8.5-10.1); CREATININE SERUM 0.75 MG/DL (0.60-1.30); POTASSIUM 3.5 MMOL/L (3.6-5.0)
[2023-08-24 07:23] VITALS: BP 170/84
[2023-08-24] MEDS: RT-Ipratropium/Albuterol NEB 3 ML VIAL INH SCH ×2 (07:37→09:43)
[2023-08-24] MEDS: FLUTICASONE/VILANTEROL 200/25 MCG (7 DOSES) IH SCH (07:38)
[2023-08-24] MEDS: VITAMIN D3 125 MCG (5,000 UNITS) TABLET PO SCH (08:04)
[2023-08-24] MEDS: LOSARTAN 25 MG TABLET PO SCH (08:04)
[2023-08-24] MEDS: buPROPion SR 150 MG TABLET PO SCH (08:04)
[2023-08-24] MEDS: LIDOCAINE 4% PATCH TOP SCH (08:04)
[2023-08-24] MEDS: PANTOPRAZOLE 20 MG TABLET PO SCH (08:04)
[2023-08-24] MEDS: ASPIRIN enteric coated 81MG TABLET PO SCH (08:04)
[2023-08-24] MEDS ORDERED: METR-145 PO (09:51)
[2023-08-24] MEDS ORDERED: CEFD300C3 PO (09:51)
--- NOTE | 2023-08-24 09:51 | Discharge Summary ---
Diagnosis/Chief Complaint Date of Admission Aug 21, 2023 at 18:30 Date of Discharge Discharge Date: Aug 24, 2023 Discharge Diagnosis Non-septic Enteritis w/ likely infection (WBC 24.8 -> 14.2 -> 13 over last 3 days) Continue Metronidazole Continue Rocephin Hypoglycemia (62) Accu-cheks to see if her eating is resolving the issue Give orange juice or soda if needed Severe aortic stenosis Monitor Pre-renal azotemia IV normal saline at 100mls at ml/hr HTN Continue Metoprolol 50mg PO Continue Hydralazine PRN Hypokalemia (3.3 -> 3.2 over last 2 days) PO K+ supplement Anemia (Hgb 12.3 -> 10.9 -> 11.1 over last 3 days) Monitor Dementia Small left effusion Monitor Diverticulosis Monitor Esophageal hiatal hernia Monitor DVT prophylaxis Lovenox 60mg SC q12h Weakness PT Continue normal diet Discharge Summary Discharge Physical Examination Allergies: Coded Allergies: Penicillins (Verified Allergy, Severe, ANAPHYLAXIS, 07/05/23) Per Dr. Hinojosa patient has had Cephalosporins in the past without issue Vitals & I&Os Vital Signs Date Time Temp Pulse Resp B/P (MAP) Pulse Ox O2 Delivery O2 Flow Rate FiO2 08/24/23 13:45 08/24/23 11:54 36.0 106 18 97 Room Air 08/23/23 00:11 08/21/23 19:06 21 General Appearance: Alert, Oriented X3, Cooperative Respiratory: Clear to Auscultation Cardiovascular: Regular Rate Psych/Mental Status: Mental Status NL Hospital Course Was the Problem List Reviewed?: Yes Cely is a 83 year old female with advanced dementia presents with a report of increased abdominal pain. Patient has been unable to answer questions and there has been confusion through her entire stay. Patient is a patient of Dr. Hinojosa. Patient had a flu shot on Thursday of this past week, and had increasing pain since then. Patient could not report if her symptoms have improved or not. Patient does deny having fever, chills, or diarrhea. Abdominal pelvis CT showed enteritis of the proximal to mid small bowel and a small amount of free fluid in the pelvis, and diverticulosis and a hiatal hernia. SONAL AGUSTIN Labs (last 24 hrs) Laboratory Tests 08/21/23 12:33: White Blood Count 24.8H, Red Blood Count 4.19, Hemoglobin 12.3, Hematocrit 37, Mean Corpuscular Volume 87, Mean Corpuscular Hemoglobin 29, Mean Corpuscular Hemoglobin Concent 34, Red Cell Distribution Width 15.7H, Platelet Count 295, Mean Platelet Volume 12.2, Immature Granulocyte % (Auto) 1, Neutrophils (%) (Auto) 92H, Lymphocytes (%) (Auto) 2L, Monocytes (%) (Auto) 4, Eosinophils (%) (Auto) 0, Basophils (%) (Auto) 0, Neutrophils # (Auto) 22.8H, Lymphocytes # (Auto) 0.5L, Monocytes # (Auto) 1.1H, Eosinophils # (Auto) 0.0, Basophils # (Auto) 0.0, Immature Granulocyte # (Auto) 0.4H, Neutrophils % (Manual) 97, Lymphocytes % (Manual) 2, Monocytes % (Manual) 1, Blood Morphology Comment NORMAL, Prothrombin Time 14.8H, INR Comment 1.1, Activated Partial Thromboplast Time 31, Sodium Level 136, Potassium Level 3.9, Chloride Level 100, Carbon Dioxide Level 20L, Anion Gap 16H, Blood Urea Nitrogen 66H, Creatinine 1.95H, Estimat Glomerular Filtration Rate 25, BUN/Creatinine Ratio 34, Glucose Level 138H, Calcium Level 10.3H, Corrected Calcium 10.7H, Magnesium Level 2.2, Total Bilirubin 1.3H, Aspartate Amino Transf (AST/SGOT) 28, Alanine Aminotransferase (ALT/SGPT) 13, Alkaline Phosphatase 93, Troponin I 0.060H, Total Protein 6.6, Albumin 3.5, Lipase 22 08/21/23 13:10: Urine Color YELLOW, Urine Clarity CLEAR, Urine pH 5.5, Urine Specific [place] 1.025H, Urine Protein 1+H, Urine Glucose (UA) NEGATIVE, Urine Ketones NEGATIVE, Urine Nitrite NEGATIVE, Urine Bilirubin NEGATIVE, Urine Urobilinogen 1.0, Urine Leukocyte Esterase NEGATIVE, Urine RBC (Auto) 1+H, Urine RBC 0-2, Urine WBC RARE, Urine Crystals PRESENTH, Urine Amorphous Sediment LARGE JOANA URATESH, Urine Bacteria TRACE, Urine Casts PRESENT, Urine Hyaline Casts 0-2H, Urine Granular Casts 0-2H, Urine Mucus NEGATIVE, Urine Culture Indicated CULTURE PENDING 08/21/23 13:18: Lactic Acid Level 1.38 08/21/23 15:43: Troponin I 0.064H 08/22/23 04:35: White Blood Count 14.2H, Red Blood Count 3.72L, Hemoglobin 10.9L, Hematocrit 32L , Mean Corpuscular Volume 87, Mean Corpuscular Hemoglobin 29, Mean Corpuscular Hemoglobin Concent 34, Red Cell Distribution Width 15.4H, Platelet Count 221, Me an Platelet Volume 11.4, Sodium Level 142, Potassium Level 3.3L, Chloride Level 108H, Carbon Dioxide Level 20L, Anion Gap 14, Blood Urea Nitrogen 52H, Creatinine 1.28, Estimat Glomerular Filtration Rate 42, BUN/Creatinine Ratio 41, Glucose Level 105, Calcium Level 9.3 08/23/23 05:30: White Blood Count 13.0H, Red Blood Count 3.90, Hemoglobin 11.1L, Hematocrit 35, Mean Corpuscular Volume 89, Mean Corpuscular Hemoglobin 29, Mean Corpuscular Hemoglobin Concent 32, Red Cell Distribution Width 15.3H, Platelet Count 257, Mean Platelet Volume 11.6, Sodium Level 141, Potassium Level 3.2L, Chloride Level 109H, Carbon Dioxide Level 22, Anion Gap 10, Blood Urea Nitrogen 32H, Creatinine 0.80, Estimat Glomerular Filtration Rate 74, BUN/Creatinine Ratio 40, Glucose Level 62L, Calcium Level 9.1 08/23/23 12:33: Glucometer 68L 08/23/23 13:26: Glucometer 76 08/23/23 17:48: Glucometer 111H 08/24/23 04:44: White Blood Count 12.8H, Red Blood Count 3.70L, Hemoglobin 10.8L, Hematocrit 32L , Mean Corpuscular Volume 88, Mean Corpuscular Hemoglobin 29, Mean Corpuscular Hemoglobin Concent 33, Red Cell Distribution Width 15.1H, Platelet Count 269, Mean Platelet Volume 11.3, Sodium Level 137, Potassium Level 3.5L, Chloride Level 107, Carbon Dioxide Level 22, Anion Gap 8, Blood Urea Nitrogen 27H, Creatinine 0.75, Estimat Glomerular Filtration Rate 79, BUN/Creatinine Ratio 36, Glucose Level 89, Calcium Level 9.8 Microbiology 08/21/23 Blood Culture - Preliminary, Resulted 08/21/23 Urine Culture - Final, Complete NO GROWTH Pending Labs Microbiology Date/Time Source Procedure Growth Status 08/21/23 13:18 Peripheral Rt Forearm Blood Culture - Preliminary Resulted 08/21/23 13:10 Urine Straight Cath, In/Out Urine Culture - Final NO GROWTH Complete 08/21/23 13:10 Peripheral Rt Forearm Blood Culture - Preliminary Resulted Laboratory Tests 08/21/23 12:33: White Blood Count 24.8, Red Blood Count 4.19, Hemoglobin 12.3, Hematocrit 37, Mean Corpuscular Volume 87, Mean Corpuscular Hemoglobin 29, Mean Corpuscular Hemoglobin Concent 34, Red Cell Distribution Width 15.7, Platelet Count 295, Mean Platelet Volume 12.2, Immature Granulocyte % (Auto) 1, Neutrophils (%) (Auto) 92, Lymphocytes (%) (Auto) 2, Monocytes (%) (Auto) 4, Eosinophils (%) (Auto) 0, Basophils (%) (Auto) 0, Neutrophils # (Auto) 22.8, Lymphocytes # (Auto) 0.5, Monocytes # (Auto) 1.1, Eosinophils # (Auto) 0.0, Basophils # (Auto) 0.0, Immature Granulocyte # (Auto) 0.4, Neutrophils % (Manual) 97, Lymphocytes % (Manual) 2, Monocytes % (Manual) 1, Blood Morphology Comment NORMAL, Prothrombin Time 14.8, INR Comment 1.1, Activated Partial Thromboplast Time 31, Sodium Level 136, Potassium Level 3.9, Chloride Level 100, Carbon Dioxide Level 20, Anion Gap 16, Blood Urea Nitrogen 66, Creatinine 1.95, Estimat Glomerular Filtration Rate 25, BUN/Creatinine Ratio 34, Glucose Level 138, Calcium Level 10.3, Corrected Calcium 10.7, Magnesium Level 2.2, Total Bilirubin 1.3, Aspartate Amino Transf (AST/SGOT) 28, Alanine Aminotransferase (ALT/SGPT) 13, Alkaline Phosphatase 93, Troponin I 0.060, Total Protein 6.6, Albumin 3.5, Lipase 22 08/21/23 13:10: Urine Color YELLOW, Urine Clarity CLEAR, Urine pH 5.5, Urine Specific [place] 1.025, Urine Protein 1+, Urine Glucose (UA) NEGATIVE, Urine Ketones NEGATIVE, Urine Nitrite NEGATIVE, Urine Bilirubin NEGATIVE, Urine Urobilinogen 1.0, Urine Leukocyte Esterase NEGATIVE, Urine RBC (Auto) 1+, Urine RBC 0-2, Urine WBC RARE, Urine Crystals PRESENT, Urine Amorphous Sediment LARGE JOANA URATES, Urine Bacteria TRACE, Urine Casts PRESENT, Urine Hyaline Casts 0-2, Urine Granular Casts 0-2, Urine Mucus NEGATIVE, Urine Culture Indicated CULTURE PENDING 08/21/23 13:18: Lactic Acid Level 1.38 08/21/23 15:43: Troponin I 0.064 08/22/23 04:35: White Blood Count 14.2, Red Blood Count 3.72, Hemoglobin 10.9, Hematocrit 32, Mean Corpuscular Volume 87, Mean Corpuscular Hemoglobin 29, Mean Corpuscular Hemoglobin Concent 34, Red Cell Distribution Width 15.4, Platelet Count 221, Mean Platelet Volume 11.4, Sodium Level 142, Potassium Level 3.3, Chloride Level 108, Carbon Dioxide Level 20, Anion Gap 14, Blood Urea Nitrogen 52, Creatinine 1.28, Estimat Glomerular Filtration Rate 42, BUN/Creatinine Ratio 41, Glucose Level 105, Calcium Level 9.3 08/23/23 05:30: White Blood Count 13.0, Red Blood Count 3.90, Hemoglobin 11.1, Hematocrit 35, Mean Corpuscular Volume 89, Mean Corpuscular Hemoglobin 29, Mean Corpuscular Hemoglobin Concent 32, Red Cell Distribution Width 15.3, Platelet Count 257, Mean Platelet Volume 11.6, Sodium Level 141, Potassium Level 3.2, Chloride Level 109, Carbon Dioxide Level 22, Anion Gap 10, Blood Urea Nitrogen 32, Creatinine 0.80, Estimat Glomerular Filtration Rate 74, BUN/Creatinine Ratio 40, Glucose Level 62, Calcium Level 9.1 08/23/23 12:33: Glucometer 68 08/23/23 13:26: Glucometer 76 08/23/23 17:48: Glucometer 111 08/24/23 04:44: White Blood Count 12.8, Red Blood Count 3.70, Hemoglobin 10.8, Hematocrit 32, Mean Corpuscular Volume 88, Mean Corpuscular Hemoglobin 29, Mean Corpuscular Hemoglobin Concent 33, Red Cell Distribution Width 15.1, Platelet Count 269, Mean Platelet Volume 11.3, Sodium Level 137, Potassium Level 3.5, Chloride Level 107, Carbon Dioxide Level 22, Anion Gap 8, Blood Urea Nitrogen 27, Creatinine 0.75, Estimat Glomerular Filtration Rate 79, BUN/Creatinine Ratio 36, Glucose Level 89, Calcium Level 9.8 Discharge Home Medications: Active Scripts Active Metronidazole 500 Mg Tablet 500 Mg PO TID Cefdinir 300 Mg Capsule 300 Mg PO BID Lasix (Furosemide) 40 Mg Tablet 40 Mg PO Q48H Escitalopram Oxalate 5 Mg Tablet 5 Mg PO DAILY Symbicort 160-4.5 Mcg Inhaler (Budesonide/Formoterol Fumarate) 10.2 Gm Hfa.aer.ad 2 Puff IH BID Reported Vitamin D3 (Cholecalciferol (Vitamin D3)) 125 Mcg (5000 Unit) Tablet 125 Mcg PO DAILY Combivent Respimat Inhal [employer] [place] (Albuterol/Ipratropium) 20 Mcg-100 Mcg/Actuation Aero 1 Puff IH BID Losartan Potassium 25 Mg Tablet 25 Mg PO DAILY HOLD IF SBP <110 Culturelle Digest 12B Cell Cap (L. Rhamnosus GG/Inulin) 12 Billion Cell-200 Mg Capsule 1 Each PO DAILY Tylenol Extra Strength (Acetaminophen) 500 Mg Tablet 500 Mg PO Q6H PRN Metoprolol Tartrate 50 Mg Tablet 50 Mg PO HS Lidocaine 4 % Adh..patch 1 Each TP DAILY Ibuprofen 400 Mg Tablet 400 Mg PO Q6H PRN Ferrous Sulfate 325 Mg (65 Mg Iron) Tablet 325 Mg PO DAILY Combivent Respimat Inhal [employer] (Albuterol/Ipratropium) 20 Mcg-100 Mcg/Actuation Aero 2 Puff IH Q8H PRN Bupropion Xl (Bupropion HCl) 150 Mg Tab.er.24h 150 Mg PO DAILY Multivitamin with Minerals Tab (Multivit-Min/Ferrous Fumarate) 15 Mg Iron Tablet 1 Ea PO DAILY Albuterol Sulfate 2.5 Mg/3 Ml (0.083 %) Vial.neb 2.5 Mg INH Q4H PRN Diclofenac Sodium 1 % Gel..gram. 1 Applic TP Q12H PRN Aspirin EC (Aspirin) 81 Mg Tablet. 81 Mg PO DAILY Pantoprazole Sodium 20 Mg Tablet. 20 Mg PO DAILY Atorvastatin Calcium 40 Mg Tablet 40 Mg PO HS Instructions to patient/family Please see electronic discharge instructions given to patient. BOBO BUSTILLOS DO Aug 24, 2023 09:51
--- NOTE | 2023-08-24 09:53 | Physical Therapy Daily Note ---
PT Daily Note-Current Subjective Patient very confused but alert. Pain Section J - Health Conditions 1. Rarely or not at all 2. Occasionally 3. Frequently 4. Almost constantly 8. Unable to answer Pain Effect on Sleep: 8 Pain Interference with Therapy: 8 Pain Interference w/Day-to-Day: 8 Mental Status Patient Orientation: Confused Transfers SCALE: Activities may be completed with or without assistive devices. 5-Blynvyzwca-qxhygal completes the activity by him/herself with no assistance from a helper. 5-Set-up or Clean-up Assistance-helper sets up or cleans up; patient completes activity. [place] assists only prior to or following the activity. 4-Supervision or Touching Assistance-helper provides verbal cues and/or touching/steadying and/or contact guard assistance as patient completes activity. Assistance may be provided throughout the activity or intermittently. 3-Partial/Moderate Assistance-helper does LESS THAN HALF the effort. [place] lifts, holds or supports trunk or limbs, but provides less than half the effort. 2-Substantial/Maximal Assistance-helper does MORE THAN HALF the effort. [place] lifts or holds trunk or limbs and provides more than half the effort. 8-Cdmbmwbbn-hlfwzm does ALL the effort. Patient does none of the effort to complete the activity. Or, the assistance of 2 or more helpers is required for the patient to complete the activity. If activity was not attempted, code reason: 7-Patient Refused. 9-Not Applicable-not attempted and the patient did not perform the activity before the current illness, exacerbation or injury. 10-Not Attempted due to Environmental Limitations-(lack of equipment, weather restraints, etc.). 88-Not Attempted due to Medical Conditions or Safety Concerns. Lying to Sitting/Side of Bed(Q: 1 Sit to Stand (QC): 1 Chair/Bmw-qz-Dayrx Xfer(QC): 1 Weight Bearing Right Lower Extremity: Right Full Weight Bearing Left Lower Extremity: Left Full Weight Bearing Assessment Patient up in recliner with chair alarm activated. Patient is dependent with all mobility on this date. Per report, patient will dismiss back to [place] on this date. PT Patent Leather Sorter Goals Residential Goals PT Patent Leather Sorter Goals Time Frame: Aug 29, 2023 Roll Left & Right (QC): 3 Sit to Lying (QC): 3 Lying-Sitting on Side/Bed(QC): 3 Sit to Stand (QC): 3 Chair/Dqw-ki-Rpexl Xfer(QC): 3 PT Plan Treatment/Plan Treatment Plan: Discontinue PT Treatment Plan: Bed Mobility, Education, Functional Activity Danny, Functional Strength, Gait, Safety, Therapeutic Exercise, Transfers Treatment Duration: Aug 29, 2023 Frequency: 5 times per week Estimated Hrs Per Day: .25 hour per day Time Time In: 850 Time Out: 900 DATE: Aug 24, 2023 Total Billed Treatment Time: 10 Total Billed Treatment 1 visit FA 10 min ALBER TANNER PT Aug 24, 2023 09:53
--- NOTE | 2023-08-24 09:59 | Occupational Therapy Eval ---
OT Evaluation-General/PLF Medical Diagnosis Admission Date Aug 21, 2023 at 18:30 Medical Diagnosis: ENTERITIS, abdominal pain Onset Date: Aug 21, 2023 Therapy Diagnosis Therapy Diagnosis: weakness Height/Weight Height (Feet): 5 Height (Inches): 2.00 Weight (Pounds): 160 Weight (Ounces): 0 Precautions Precautions/Isolations: Fall Prevention, Standard Precautions Referral Physician: Kareem Referral Reason: Evaluation/Treatment Medical History Pertinent Medical History: COPD, Dementia (advanced), HTN, Smoking Additional Medical History HPI per ED: Here by EMS with report of increased abdominal pain today. She does have advanced dementia. She does follow with Dr. ROSAS. Patient apparently had flu shot on Thursday and had similar episode after flu shot last year as well. No report of vomiting or diarrhea. Additional medical problems include aortic stenosis, history of pneumonia and CHF, diabetes, reflux disease, hypertension, reflux disease, chronic back pain and urinary tract infections. Patient does have DNR on file with the facility. Social History Home: Long-Term Entry Into Home: Level Entry ADL-Prior Level of Function SCALE: Activities may be completed with or without assistive devices. 5-Nfiiniylfm-sajedsv completes the activity by him/herself with no assistance from a helper. 5-Set-up or Clean-up Assistance-helper sets up or cleans up; patient completes activity. Walker assists only prior to or following the activity. 4-Supervision or Touching Assistance-helper provides verbal cues and/or touching/steadying and/or contact guard assistance as patient completes activity. Assistance may be provided throughout the activity or intermittently. 3-Partial/Moderate Assistance-helper does LESS THAN HALF the effort. Walker lifts, holds or supports trunk or limbs, but provides less than half the effort. 2-Substantial/Maximal Assistance-helper does MORE THAN HALF the effort. Walker lifts or holds trunk or limbs and provides more than half the effort. 2-Kluuuoqbs-ffsrlw does ALL the effort. Patient does none of the effort to complete the activity. Or, the assistance of 2 or more helpers is required for the patient to complete the activity. If activity was not attempted, code reason: 7-Patient Refused. 9-Not Applicable-not attempted and the patient did not perform the activity before the current illness, exacerbation or injury. 10-Not Attempted due to Environmental Limitations-(lack of equipment, weather restraints, etc.). 88-Not Attempted due to Medical Conditions or Safety Concerns. Self Care: Needed Some Help Functional Cognition: Needed Some Help Drive Self: No OT Current Status Subjective Drinking COKE and burps, laughingly rep[orts " I did That", agreeable to OT Pain Location: No Pain Reported Mental Status/Objective Patient Orientation: Person, Confused Attachments: IV Current Upper Extremity ROM Limited at 90 degrees, becomes resistive greater than 90 shoulder flexion Upper Extremity Coordination impaired Upper Extremity Strength -3/5 ADL-Treatment ADL-Current Receives assistance for ADLS Eating (QC): 4 Oral Hygiene (QC): 3 Shower/Bathe Self (QC): 7 Upper Body Dressing (QC): 3 Lower Body Dressing (QC): 1 (Dependent transfer sw/ 2 persons, max assistance to sit EOB, better sitting balance in recliner.) On/Off Footwear (QC): 1 Toileting Hygiene (QC): 1 Education OT Patient Education: Correct positioning, Modified ADL techniques, Progress toward Goal/Update tx plan, Purpose of tx/functional activities, Reviewed precautions, Rehab process, Safety issues, Transfer techniques, Use of adapted equipment Teaching Recipient: Patient Response to Teaching: Unable to Comprehend OT Group Home Goals Group Home Goals Eating (QC): 5 Oral Hygiene (QC): 4 Toileting Hygiene (QC): 3 Shower/Bathe Self (QC): 3 Upper Body Dressing (QC): 4 Lower Body Dressing (QC): 3 On/Off Footwear (QC): 3 1=Demonstrate adherence to instructed precautions during ADL tasks. 2=Patient will verbalize/demonstrate understanding of assistive devices/modifications for ADL. 3=Patient will improve strength/tolerance for activity to enable patient to perform ADL's. OT Education/Plan Problem List/Assessment Assessment: Decreased Activ Tolerance, Decreased Safety Aware, Decreased UE Strength, Dependent Transfers, Impaired Bed Mobility, Impaired Cognition, Impaired Coordination, Impaired Funct Balance, Impaired Self-Care Skills Discharge Recommendations Plan/Recommendations: Continue POC Treatment Plan/Plan of Care Treatment,Training & Education: Yes Patient would benefit from OT for education, treatment and training to promote i ndependence in ADL's, mobility, safety and/or upper extremity function for ADL's. Plan of Care: ADL Retraining, Functional Mobility, Group Exercise/Act as Ind, UE Funct Exercise/Act Treatment Duration: Aug 24, 2023 Frequency: 3 times per week (3-5 times ) Estimated Hrs Per Day: .25 hour per day Agreement: Yes Rehab Potential: Guarded Time Start Time: 08:48 Stop Time: 08:58 DATE: Aug 24, 2023 Total Time Billed (hr/min): 10 Billed Treatment Time AVH 10 min JOSEPH SANCHEZ OT Aug 24, 2023 09:59
--- NOTE | 2023-08-24 10:57 | Progress Note ---
SONAL AGUSTIN 08/24/23 1057: Progress Note Cely is a 83 year old female with advanced dementia presents with a report of increased abdominal pain. Patient has been unable to answer questions and there has been confusion through her entire stay. Patient is a patient of Dr. Hinojosa. Patient had a flu shot on Thursday of this past week, and had increasing pain since then. Patient could not report if her symptoms have improved or not. Patient does deny having fever, chills, or diarrhea. Abdominal pelvis CT showed enteritis of the proximal to mid small bowel and a small amount of free fluid in the pelvis, and diverticulosis and a hiatal hernia. LIZA BUSTILLOS DO 08/25/23 0430: Supervisory-Addendum Brief Verification & Attestation Participated in pt care: history, MDM, physical Personally performed: exam, history, MDM, supervision of care Care discussed with: Medical Student Procedures: n/a Results interpretation: Verified all documentation Verification and Attestation of Medical Student E/M Service A medical student performed and documented this service in my presence. I reviewed and verified all information documented by the medical student and made modifications to such information, when appropriate. I personally performed the physical exam and medical decision making. Liza Bustillos, Aug 25, 2023,04:30 SONAL AGUSTIN Aug 24, 2023 10:57 LIZA BUSTILLOS DO Aug 25, 2023 04:30
[2023-08-24 11:54] VITALS: BP 134/68
[2023-08-24] MEDS: ENOXAPARIN 40 MG/0.4 ML SYRINGE SQ SCH (13:18)
== END 2023-08-24 13:45 ==
LOC: EDUNIT# 12:22 → ER 12:23 → 4TH 18:30 → UNDOADMOB 18:30 → 4TH 19:00 → UNDODISOB 08-24 13:45
PROVIDERS: ADMIT Family Medicine; ATTEND Internal Medicine
DX: K52.89 Other specified noninfective gastroenteritis and colitis (principal); E16.2 Hypoglycemia, unspecified; I10 Essential (primary) hypertension; I35.0 Nonrheumatic aortic (valve) stenosis; E87.6 Hypokalemia; D64.9 Anemia, unspecified; J90 Pleural effusion, not elsewhere classified; D72.829 Elevated white blood cell count, unspecified; K57.90 Diverticulosis of intestine, part unspecified, without perforation or abscess without bleeding; K44.9 Diaphragmatic hernia without obstruction or gangrene; R53.1 Weakness; K52.9 Noninfective gastroenteritis and colitis, unspecified; N17.9 Acute kidney failure, unspecified; F03.90 Unspecified dementia, unspecified severity, without behavioral disturbance, psychotic disturbance, mood disturbance, and anxiety; F17.210 Nicotine dependence, cigarettes, uncomplicated
CPT/HCPCS: 51701; 71045; 74176; 80048 ×3; 80053; 81000; 82947; 83605; 83690; 83735; 84484; 85007; 85027 ×4; 85610; 85730; 87040; 87088; 93005; 94640; 94760; 96361 ×2; 96365; 96366; 96372 ×2; 96375; 96376 ×4; 97162; 97167; 97530; 99284; G0378; 36415

== ENCOUNTER → 2023-09-22 | Outpatient (CLI) | payer MEDICARE, MEDICAID ==
[~2023-09-22] MED LIST changes: +CALC-250 PO; +METR-145 PO
--- NOTE | 2023-09-22 09:19 | Diagnostic Imaging Report ---
EXAMINATION: CT abdomen and pelvis without contrast. TECHNIQUE: Multiple contiguous axial images were obtained through the abdomen and pelvis without the use of intravenous contrast. All CT scans use one or more of the following dose optimizing techniques: automated exposure control, MA and/or KvP adjustment based on patient size and exam type or iterative reconstruction. HISTORY: Abdominal pain. COMPARISON: 08/21/2023. FINDINGS: Limited views of the lower thorax show calcified breast implants. There is a hiatal hernia. Coronary arteries are calcified. The liver is normal without focal lesion. There is no biliary ductal dilation. Gallbladder is normal. Pancreas is normal. Spleen is normal. Adrenal glands are normal. There are simple cysts and hemorrhagic cysts in the kidneys. No suspicious renal lesion. No change from prior exam. There is no hydronephrosis. There are layering stones in the urinary bladder. Bowel is normal in caliber without obstruction or inflammation. There is a short segment of wall thickening of small bowel with mesenteric stranding and fluid. No evidence of obstruction. Several bowel loops are closely opposed to one another. The wall thickening and stranding have increased from prior exam. No free fluid or air. No abdominal or pelvic lymphadenopathy. Aorta is normal in caliber without aneurysm. There are no suspicious osseus lesions. IMPRESSION: Worsening short segment bowel wall thickening and surrounding stranding without evidence for obstruction. Differential includes inflammatory bowel disease, ischemia, and a small bowel mass. Surgical evaluation is recommended. Consider repeat exam with contrast. Dictated by: Dictated on workstation # [id number]
== END ==
LOC: RAD 07:57 → MERGE 08:05
PROVIDERS: ATTEND Family Medicine
DX: K63.9 Disease of intestine, unspecified (principal)
CPT/HCPCS: 74176